=== PATIENT | male | born 1945 | race Caucasian/White ===

== ENCOUNTER → 2020-11-04 | Outpatient (CLI) | payer MEDICARE ==
[~2020-11-04] MED LIST: CATHETER FLUSH 10 ML SYR IV PRN; HOLD METFORMIN - RECEIVED CONTRAST 20 ML VIAL IV SCH; IOHEXOL 350 MG/ML 100 ML (OMNIPAQUE 350) VIAL IV ONE; NS 100 ML (IVPB) BAG IV ONE
--- NOTE | 2020-11-04 09:19 | Diagnostic Imaging Report ---
PROCEDURE: CT abdomen and pelvis with contrast. TECHNIQUE: Multiple contiguous axial images were obtained through the abdomen and pelvis after administration of intravenous contrast. Auto Exposure Controls were utilized during the CT exam to meet ALARA standards for radiation dose reduction. All CT scans use one or more of the following dose optimizing techniques: automated exposure control, MA and/or KvP adjustment based on patient size and exam type or iterative reconstruction. INDICATION: Abdominal aortic aneurysm. COMPARISON: None available. FINDINGS: LOWER THORAX: Lung bases are clear. Visualized heart is normal in size. Incidentally noted are small pericardiophrenic lymph nodes, which are not enlarged by CT size criteria. LIVER: Normal. No focal lesion or acute pathology. GALLBLADDER: Hyperdense material layers posteriorly in the distal body/fundus. No gallbladder wall thickening or pericholecystic fluid. BILE DUCTS: No biliary ductal dilatation. SPLEEN: Normal. PANCREAS: Normal. No pancreatic ductal dilatation. ADRENAL GLANDS: No nodules. KIDNEYS AND URETERS: The kidneys are symmetric in size and demonstrate normal enhancement. No hydronephrosis renal calculus on either side. Subcentimeter foci of low-attenuation in both kidneys are too small to characterize, but likely represent cysts. No suspicious renal mass. No abnormality in the visualized ureters. STOMACH AND BOWEL: Stomach and duodenum are normal. Small bowel and colon are normal in course and caliber, without evidence of wall thickening or obstruction. No unusual stool burden. APPENDIX: Not visualized. No pericecal inflammation. PELVIC ORGANS/BLADDER: Bladder is normal. Prostate gland is normal in size. PERITONEUM AND RETROPERITONEUM: No pneumoperitoneum. No abdominal free fluid or loculated collection. LYMPH NODES: No lymphadenopathy. VESSELS: There is fusiform dilatation of the infrarenal abdominal aorta at the level of the aortic bifurcation. This is difficult to accurately measure given its close proximity to the origin of the left common iliac artery, however, measures approximately 5.0 cm in greatest AP oblique diameter (image 129 series 5). There is moderate noncalcified atherosclerotic plaque noted at the level of the aortic bifurcation, with scattered calcified atherosclerotic plaque also noted in the abdominal aorta and iliac arteries. There is also aneurysmal dilatation of the common iliac arteries. The left common iliac artery measures up to approximately 1.9 cm in greatest AP diameter and the right common iliac artery measures up to approximately 3.5 cm in greatest AP diameter. The renal and mesenteric arteries appear patent on this study performed without angiographic protocol. Incidental note is made of a replaced right hepatic artery, which arises directly from the aorta. There is no evidence of venous thrombosis. ABDOMINAL WALL: There is a fat-containing paraumbilical hernia, with the ventral wall defect just below the level of the umbilicus measuring 2.4 cm in transverse diameter. There is no inflammatory change in the herniated fat to suggest strangulation. BONES: Mild degenerative changes involve the spine. No acute osseous abnormalities identified. There is a heterogeneous sclerotic lesion in the right anterior iliac bone near the acetabular roof (images 72-73 series 3), which measures up to 2 cm in greatest AP diameter. Smaller benign-appearing sclerotic focus is demonstrated in the posterior right iliac bone, likely a benign bone island (image 68 series 3). IMPRESSION: No acute abdominal or pelvic pathology. Infrarenal abdominal aortic aneurysm at the level of the aortic bifurcation, which measures up to approximately 5 cm in oblique AP diameter. 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 There is no evidence of rupture, retroperitoneal hemorrhage, or other acute abnormality related to these findings. Cholelithiasis, without evidence of acute cholecystitis. Incidental note is made of a heterogeneous sclerotic lesion in the right iliac bone. This is indeterminate and may represent a bone infarct. Comparison to more remote priors would be beneficial to assess for stability of this finding. If the patient has history of malignancy and there is concern for metastatic disease, nuclear medicine bone scan may be of benefit in further evaluation. Other chronic and incidental findings are detailed above. Dictated by: Dictated on workstation # [id number]
== END ==
LOC: RAD FS 07:54
PROVIDERS: ATTEND Family Medicine
DX: I71.4 Abdominal aortic aneurysm, without rupture (principal); I72.3 Aneurysm of iliac artery; K80.20 Calculus of gallbladder without cholecystitis without obstruction; M89.8X8 Other specified disorders of bone, other site
CPT/HCPCS: 74177

== ENCOUNTER → 2020-11-29 | Outpatient (CLI) | payer MEDICARE | LOC: CARD 08:51 | PROVIDERS: ATTEND Internal Medicine Cardiovascular Disease | DX: I11.9 Hypertensive heart disease without heart failure (principal); I34.0 Nonrheumatic mitral (valve) insufficiency | CPT/HCPCS: 93306 ==

== ENCOUNTER → 2021-01-13 | Outpatient (CLI) | payer MEDICARE ==
[~2021-01-13] MED LIST changes: +APIX5TAB PO; -CATHETER FLUSH 10 ML SYR IV PRN; +CLOP75TA28 PO; +DILT120C82 PO; +DILT120T3 PO; +FENO145T26 PO; +FLUT9.9S NS; +FURO40TA4 PO; -HOLD METFORMIN - RECEIVED CONTRAST 20 ML VIAL IV SCH; +HYDR12.56 PO; +INSU100I14 SQ; +INSU100I34 SQ; -IOHEXOL 350 MG/ML 100 ML (OMNIPAQUE 350) VIAL IV ONE; +IPRA3AMP31 IH; +MELO15TA39 PO; +METO50TA7 PO; +MONT10TA32 PO; -NS 100 ML (IVPB) BAG IV ONE; +OMEP20CA18 PO; +PREG100C55 PO; +ROSU40TA23 PO; +RT-ALBUINH IH
== END ==
LOC: LABNPT 06:41
PROVIDERS: ATTEND Internal Medicine Cardiovascular Disease
DX: Z01.818 Encounter for other preprocedural examination (principal); Z20.822 Contact with and (suspected) exposure to COVID-19
CPT/HCPCS: 87635

== ENCOUNTER 2021-01-15 12:00 | Day surgery (SDC) | payer MEDICARE ==
[2021-01-15] VITALS (16 sets, daily range): BP systolic 102–143; BP diastolic 59–107
[~2021-01-15] VITALS: Ht 188 cm; Wt 136.4 kg
--- NOTE | 2021-01-15 09:49 | Diagnostic Imaging Report ---
INDICATION: Atrial fibrillation and pre-heart catheterization. Time of exam: 9:47 AM No prior studies are available for comparison. The heart size is normal. The pulmonary vascularity is unremarkable. The lungs are clear. No infiltrate, effusion or pneumothorax is detected. IMPRESSION: No acute cardiopulmonary process is detected. Dictated by: Dictated on workstation # [id number]
[2021-01-15 09:56] LABS: HEMATOCRIT 43 % (40-54); MEAN CORPUSCULAR HEMOGLOBIN 29 pg (25-34); MEAN CORPUSCULAR HGB CONC 33 g/dL (32-36); MEAN CORPUSCULAR VOLUME 88 fL (80-99); MEAN PLATELET VOLUME 11.3 fL (9.0-12.2); PLATELET COUNT 209 10^3/uL (130-400); WHITE BLOOD COUNT 7.3 10^3/uL (4.3-11.0)
[2021-01-15 10:16] LABS: ALANINE AMINOTRANSFERASE 19 U/L (0-55); ALBUMIN 3.7 GM/DL (3.2-4.5); ALKALINE PHOSPHATASE 59 U/L (40-136); BILIRUBIN,TOTAL 0.4 MG/DL (0.1-1.0); BUN/CREATININE RATIO 20; CARBON DIOXIDE 30 MMOL/L (21-32); CHLORIDE 105 MMOL/L (98-107); CHOLESTEROL 124 MG/DL (< 200); CREATININE SERUM 1.14 MG/DL (0.60-1.30); GFR ESTIMATED > 60; GLUCOSE 195 MG/DL (70-105); HDL CHOLESTEROL 26 MG/DL (40-60); INR 1.1 (0.8-1.4); POTASSIUM 3.8 MMOL/L (3.6-5.0); PROTHROMBIN TIME PATIENT 14.2 SEC (12.2-14.7); SODIUM 142 MMOL/L (135-145); TOTAL PROTEIN 6.7 GM/DL (6.4-8.2); TRIGLYCERIDES 137 MG/DL (<150); VLDL CHOLESTEROL 27 MG/DL (5-40)
[~2021-01-15 12:00] MED LIST changes: +AMIODARONE INJECTION 450 MG in D5W IV SOLUTION (EXCEL) 250 ML IV SCH; +LIDOCAINE 2% VISCOUS 15 ML UDC ONE; +LIDOCAINE 2% VISCOUS 15 ML UDC PO ONE; +MIDAZOLAM 2 MG/2 ML (VERSED) VIAL ONE; +NS IV 1000 ML 1,000 ML IV SCH; +NS IV 1000 ML 1,000 ML ONE; +proPOfol 200 MG/20 ML (DIPRIVAN) VIAL IV ONE
[2021-01-15] MEDS ORDERED: AMIODARONE FOR BOLUS 150 MG in D5W 100 ML IVPB 100 ML IV NR (12:15)
--- NOTE | 2021-01-15 12:17 | Conscious Sedation/ASA ---
Conscious Sedation Pre-Proced Time 11:00 ASA Score 3 For ASA 3 and 4: Consider anesthesia and medical clearance. Also, for patients with a history of failed moderate sedation consider anesthesia. Airway Lungs Heart ASA score ASA 1: a normal healthy patient ASA 2: a patient with a mild systemic disease (mid diabetes, controlled hypertension, obesity x ASA 3: a patient with a severe systemic disease that limits activity (angina, COPD, prior Myocardial infarction) ASA 4: a patient with an incapacitating disease that is a constant threat to life (CHF, renal failure) ASA 5: a moribund patient not expected to survive 24 hrs. (ruptured aneurysm) ASA 6: a declared brain- patient whose organs are being harvested. For emergent operations, add the letter E after the classification Mallampati Classification Grade 3 Sedation Plan Analgesia, Amnesia, Plan communicated to team members, Discussed options with patient/fam, Discussed risks with patient/fam The patient is an appropriate candidate to undergo the planned procedure, sedation, and anesthesia. The patient immediately re-assessed prior to indication. TONIO LOPEZ MD January 15, 2021 12:16 pm
--- NOTE | 2021-01-15 12:17 | Cardioversion ---
Cardioversion PROCEDURE PHYSICIAN: Tonio Esparza DATE OF PROCEDURE: 01/15/21 DIRECT EXTERNAL ELECTRICAL CARDIOVERSION: Indications: Atrial Fibrillation with rapid ventricular rate Preoperative diagnoses: Atrial Fibrillation with rapid ventricular rate Postoperative diagnosis: Atrial fibrillation Anesthesia: By Anesthesia services Complications: None Specimen: None Contrast: 0 Flouroscopy: none Procedure Details: The patient was brought the central lab technician after informed consent was taken, all the risks and complications were explained including the risk of stroke. Electrical cardioversion was carried out with anesthesia support with propofol. 200 joules of synchronized shock was delivered twice without success in terminating atrial fibrillation. Decision was made to load the patient with amiodarone and attempt cardioversion again tomorrow Conclusions: Failed to attempt for cardioversion with 200 J TONIO ESPARZA MD January 15, 2021 12:17 pm
[2021-01-15] MEDS ORDERED: RT-ALBUTEROL/IPRATROPIUM 3 ML (DUONEB) VIAL IH PRN (12:30)
[2021-01-15] MEDS ORDERED: AMIODARONE FOR BOLUS 150 MG in D5W 100 ML IVPB 100 ML IV ONE (12:30)
[2021-01-15] MEDS ORDERED: RT-ALBUTEROL SULF 2.5 MG/3 ML PRE-MIX VIAL IH PRN (12:30)
--- NOTE | 2021-01-15 12:55 | Anesthesia-General Post-Op ---
MAC Patient Condition Mental Status/LOC: Same as Preop Cardiovascular: Satisfactory Nausea/Vomiting: Absent Respiratory: Satisfactory Pain: Controlled Complications: Absent Post Op Complications Complications None Follow Up Care/Instructions Patient Instructions None needed. Anesthesiology Discharge Order Discharge Order Patient is doing well, no complaints, stable vital signs, no apparent adverse anesthesia problems. No complications reported per nursing. SWETHA ROSSI CRNA January 15, 2021 12:55
[2021-01-15] MEDS ORDERED: PREGABALIN 100 MG (LYRICA) CAPSULE PO SCH ×2 (13:00→21:00)
[2021-01-15] MEDS ORDERED: NON-FORMULARY MEDICATION 1 EA EA (Insulin Aspart (Novolog Flexpen) 25 UNITS) SQ SCH (13:00)
[2021-01-15] MEDS ORDERED: AMIODARONE INJECTION 450 MG in D5W IV SOLUTION (EXCEL) 250 ML IV SCH (14:30)
[2021-01-15] MEDS ORDERED: APIXABAN 5 MG (ELIQUIS) TABLET PO NR (14:30)
[2021-01-15] MEDS ORDERED: NITROGLYCERIN 0.4 MG SL TABS BTL 25'S SL PRN (14:45)
[2021-01-15] MEDS ORDERED: RT-ALBUTEROL INHALER HFA (VENTOLIN HFA) 18 GM IH PRN (15:15)
[2021-01-15] MEDS ORDERED: inSUlin ASPART (NovoLOG) 1 UNIT/0.01 ML (CHARGE PER UNIT) SC SCH (18:00)
[2021-01-15] MEDS: FUROSEMIDE 40 MG (LASIX) TAB PO SCH (18:56)
[2021-01-15] MEDS ORDERED: AMIODARONE 200 MG (CORDARONE) TAB PO SCH (21:00)
[2021-01-15] MEDS ORDERED: BASAGLAR 100 UNIT/ML SQ SCH (21:00)
[2021-01-15] MEDS ORDERED: APIXABAN 5 MG (ELIQUIS) TABLET PO SCH (21:00)
[2021-01-15] MEDS ORDERED: MONTELUKAST 10 MG (SINGULAIR) TAB PO SCH (21:00)
[2021-01-15] MEDS ORDERED: ROSUVASTATIN 20 MG (CRESTOR) TABLET PO SCH (21:00)
[2021-01-16] VITALS (7 sets, daily range): BP systolic 98–123; BP diastolic 46–89
[2021-01-16] MEDS: FUROSEMIDE 40 MG (LASIX) TAB PO SCH (07:50)
--- NOTE | 2021-01-16 07:50 | Discharge Inst-Post CATH ---
Discharge Inst-CATH/EP Problems Reviewed?: Yes Post Cardiac Cath/EP D/C Inst Follow Up/Plan Appointment with Dr. Esparza's office in 2 weeks <b>CARDIAC CATH/EP PROCEDURE DISCHARGE INSTRUCTIONS</b> ACTIVITY * Go Home directly and rest. * Limit activity of the leg (or wrist if it was used) for 7 days including aerobics, swimming, jogging, bicycling, etc. * Restrict stair-climbing for 7 days if possible, if not, climb up with your non-cath leg, then bring together on the same step. * Avoid lifting, pushing, pulling or excessive movement of the affected extremity for 7 days. * Customary sexual activity may be resumed after 2 days-use caution not to use a position that strains or causes pain to the affected extremity. * No driving for 24 hours. * NO SMOKING. * Avoid straining for bowel movements for 7 days. * Gentle walking on level ground is allowed. * Returning to work will depend on the type of procedure and the results. Your doctor will discuss this with you. CALL YOUR DOCTOR FOR ANY OF THE FOLLOWING: *If bleeding from the puncture site occurs- Apply gentle pressure to site with clean cloth and call your doctor or EMS. * If a knot or lump forms under the skin, increases in size, or causes pain. * If bruising appears to be worsening or moving further down your leg instead of disappearing. * Temperature above 101 F. CARE OF YOUR GROIN INCISION; * Bruising or purple discoloration of the skin near the puncture site is common. * You may shower only, no bathtub bathing for 5 days. Be careful to avoid slipping as your leg may feel stiff. * If a closure device was used on your femoral artery, please see the attached guide regarding care of the device and your leg. * Leave dressing on FOR 24 hours. CARE OF YOUR WRIST INCISION; * Bruising or purple discoloration of the skin near the puncture site is common. * You may shower. * DO NOT submerge wrist. * Leave dressing on FOR 24 hours. TONIO ESPARZA MD January 16, 2021 07:50
--- NOTE | 2021-01-16 07:52 | Cardiology Progress Note ---
Subjective Date Seen by Provider: January 16, 2021 Time Seen by Provider: 07:50 Subjective/Events-last exam Patient is laying down in bed, feeling better, no further chest pain Has chest pain, shortness of breath and diaphoresis when he was started on amiodarone drip subsequently it was discontinued Review of Systems General: No Chills, No Night Sweats, No Fatigue, No Malaise, No Appetite, No Other HEENT: No Head Aches, No Visual Changes, No Eye Pain, No Ear Pain, No Dysphasia, No Sinus Congestion, No Post Nasal Drip, No Sore Throat, No Other Pulmonary: No Dyspnea, No Cough, No Pleuritic Chest Pain, No Other Cardiovascular: No: Chest Pain, Palpitations, Orthopnea, Paroxysmal Noc. Dyspnea, Edema, Lt Headedness, Other Objective-Cardiology Exam Last Set of Vital Signs Vital Signs 01/15/21 01/15/21 01/16/21 01/16/21 09:54 11:59 06:00 06:36 Temp 36.4 Pulse 77 Resp 24 B/P (MAP) 123/89 (100) Pulse Ox 95 O2 Delivery Room Air O2 Flow Rate 8.00 Capillary Refill : General: Alert, Oriented X3, Cooperative HEENT: Atraumatic, PERRLA Neck: Supple, No JVD, No Thyromegaly Lungs: Clear to Auscultation, Normal Air Movement Heart: Normal S1, Normal S2, No Murmurs, Other (Atrial fibrillation) Abdomen: Normal Bowel Sounds, Soft, No Tenderness, No Hepatosplenomegaly, No Masses Extremities: No Clubbing, No Cyanosis, No Edema, Normal Pulses, No Tenderness/Swelling Skin: No Rashes, No Breakdown, No Significant Lesion Neuro: Normal Gait, Normal Speech, Strength at 5/5 X4 Ext, Normal Tone, Sensation Intact Psych/Mental Status: Mental Status NL, Mood NL Results Lab Laboratory Tests 01/15/21 09:45 A/P-Cardiology Admission Diagnosis Persistent atrial fibrillation Palpitation Hypertension Hyperlipidemia Coronary artery disease Assessment/Plan Atrial fibrillation with controlled rate, underwent DAREN with attempt of cardioversion twice yesterday has failed, he was started on amiodarone drip and had a reaction, had chest pain and shortness of breath and diaphoresis subsequently it was discontinued, this morning he is feeling well. No other symptoms. I was planning to do cardioversion this morning but elected to cancel the procedure and refer him for EP evaluation as an outpatient Palpitation, better at this time Coronary artery disease, clinically stable, monitor as an outpatient Hypertension, monitor blood pressure restart home medication Hyperlipidemia. TONIO LOPEZ MD January 16, 2021 07:52
[2021-01-16] MEDS ORDERED: FENOFIBRATE 145 MG TAB PO SCH (08:00)
[2021-01-16] MEDS ORDERED: meTOproloL SUCCINATE 50 MG (TOPROL XL) TAB PO SCH (09:00)
[2021-01-16] MEDS ORDERED: NON-FORMULARY MEDICATION 1 EA EA (Hydrochlorothiazide 12.5 MG) PO SCH (09:00)
[2021-01-16] MEDS ORDERED: MELOXICAM 15 MG TABLET PO SCH (09:00)
[2021-01-16] MEDS ORDERED: FLUTICASONE NASAL SPRAY (FLONASE) 16 GM BTL NS PRN (09:00)
[2021-01-16] MEDS ORDERED: OMEPRAZOLE 20 MG (PriLOSEC) CAP NON-FORMULARY PO SCH (09:00)
[2021-01-16] MEDS ORDERED: dilTIAZem120 MG (CARDIZEM CD) CAP PO SCH (09:00)
[2021-01-16] MEDS ORDERED: NON-FORMULARY MEDICATION 1 EA EA (Rosuvastatin Calcium 40 MG) PO SCH (09:00)
[2021-01-16] MEDS ORDERED: NON-FORMULARY MEDICATION 1 EA EA (Meloxicam 15 MG) PO SCH (09:00)
[2021-01-16] MEDS ORDERED: CLOPIDOGREL 75 MG (PLAVIX) TABLET PO SCH (09:00)
== END 2021-01-16 08:13 | disposition home or self-care (01) ==
LOC: ICU 13:54 → CATH 01-16 08:13
PROVIDERS: ATTEND Internal Medicine Cardiovascular Disease
DX: I48.20 Chronic atrial fibrillation, unspecified (principal); I11.9 Hypertensive heart disease without heart failure; I71.4 Abdominal aortic aneurysm, without rupture; I25.10 Atherosclerotic heart disease of native coronary artery without angina pectoris; E78.2 Mixed hyperlipidemia; G47.33 Obstructive sleep apnea (adult) (pediatric); E78.1 Pure hyperglyceridemia; I34.0 Nonrheumatic mitral (valve) insufficiency; I49.3 Ventricular premature depolarization; E11.9 Type 2 diabetes mellitus without complications; E66.9 Obesity, unspecified; Z88.8 Allergy status to other drugs, medicaments and biological substances; Z87.891 Personal history of nicotine dependence; Z86.73 Personal history of transient ischemic attack (TIA), and cerebral infarction without residual deficits; Z79.01 Long term (current) use of anticoagulants; Z68.38 Body mass index [BMI] 38.0-38.9, adult; Z79.899 Other long term (current) drug therapy; Z79.02 Long term (current) use of antithrombotics/antiplatelets; Z79.891 Long term (current) use of opiate analgesic; Z79.4 Long term (current) use of insulin; Z98.890 Other specified postprocedural states
CPT/HCPCS: 36415; 71045; 80053; 80061; 85027; 85610; 85730; 87081; 92960; 93005; 93312

== ENCOUNTER 2021-06-05 12:43 | Inpatient (IN) | payer MEDICARE ==
[~2021-06-05] VITALS: Ht 188 cm; Wt 138.3 kg
[~2021-06-05 12:43] MED LIST changes: -AMIODARONE INJECTION 450 MG in D5W IV SOLUTION (EXCEL) 250 ML IV SCH; -LIDOCAINE 2% VISCOUS 15 ML UDC ONE; -LIDOCAINE 2% VISCOUS 15 ML UDC PO ONE; -MIDAZOLAM 2 MG/2 ML (VERSED) VIAL ONE; -NS IV 1000 ML 1,000 ML IV SCH; -NS IV 1000 ML 1,000 ML ONE; -proPOfol 200 MG/20 ML (DIPRIVAN) VIAL IV ONE
--- OUTSIDE RECORDS SUMMARY | 2021-06-05 12:50 | XMS REPORT | Clinical Summary ---
Author Author [facility] Organization [facility] Address Unknown Phone Unavailable Care Team Providers Care Linter Drier Operator Name Role Phone Self, Sandip CARLISLE PCP Source Comments Some departments are not documenting in the electronic medical record. If you d o not see the information that you expected, contact Release of Information in located within [facility] [employer] Information Management department at [phone] for further assistan ce in locating additional records.[facility] Allergies Comments Active Allergy Reactions Severity Noted Date Amiodarone CHEST Medium 01/30/2021 TIGHTNESS, SHORTNESS OF BREATH, SWEATING Rosiglitazone SHORTNESS OF Medium 01/30/2021 BREATH Losartan HIVES Medium 01/30/2021 Glipizide RASH Medium 01/30/2021 Umeclidinium SHORTNESS OF Medium 01/30/2021 BREATH Atorvastatin HIVES Medium 01/30/2021 Benazepril MUSCLE PAIN Medium 01/30/2021 Lovastatin MUSCLE PAIN Medium 01/30/2021 Metformin RASH Medium 01/30/2021 Simvastatin MUSCLE PAIN Medium 01/30/2021 Medications End Date Status Medication Sig Dispensed Refills Start Date Active aspirin EC 81 mg tablet Take 81 mg by 0 mouth daily. Take with food. Active clopiDOGrel (PLAVIX) 75 Take 75 mg by 0 mg tablet mouth daily. Active fenofibrate Take 145 mg 0 nanocrystallized (TRICOR) by mouth 145 mg tablet daily. Take with food. Active hydroCHLOROthiazide Take 12.5 mg 0 (HYDRODIURIL) 12.5 mg by mouth tablet every morning. Active furosemide (LASIX) 40 mg Take 40 mg by 0 tablet mouth every morning. Active pregabalin (LYRICA) 100 Take 100 mg 0 mg capsule by mouth three times daily. Active meloxicam (MOBIC) 15 mg Take 15 mg by 0 tablet mouth daily. Active insulin aspart U-100 Inject 25 0 (NOVOLOG FLEXPEN U-100 Units under INSULIN) 100 unit/mL (3 the skin mL) injection PEN three times daily with meals. Active omeprazole DR (PRILOSEC) Take 20 mg by 0 20 mg capsule mouth daily before breakfast. Active rosuvastatin (CRESTOR) 40 Take 40 mg by 0 mg tablet mouth daily. Active apixaban (ELIQUIS) 5 mg Take 5 mg by 0 tablet mouth twice daily. Active albuterol (ACCUNEB) 0.63 Inhale 0.63 0 mg/3 mL nebulizer mg solution solution by nebulizer as directed every 4 hours as needed for Wheezing. Active fluticasone propionate Apply 2 0 (FLONASE) 50 sprays to mcg/actuation nasal each nostril spray, suspension as directed daily. Shake bottle gently before using. Active metoprolol XL (TOPROL XL) Take 50 mg by 0 50 mg extended release mouth daily. tablet Active montelukast (SINGULAIR) Take 10 mg by 0 10 mg tablet mouth at bedtime daily. Active dilTIAZem CD (CARDIZEM Take one 180 capsule 3 CD) 120 mg capsule capsule by 1 mouth twice daily. Active insulin Inject 60 0 glargine,hum.rec.anlog Units under (BASAGLAR KWIKPEN U-100 the skin INSULIN SC) twice daily. Active MULTAQ 400 mg tablet TAKE 1 TABLET 60 tablet 11 BY MOUTH 1 TWICE DAILY Active Problems Problem Noted Date Atrial fibrillation 01/30/2021 Overview: Formatting of this note might be differ ent from the original. 11/29/2020 - ECHO: ([facility]) LV cavity is normal. Wall thickness is mildly increased. Th ere is concentric hypertrophy. Systolic function is normal. EF = 50%. There were no regional wall motion abnormalities identified. Features are consistent with a pseudonormal LV filling pattern, with concomitant abnor mal relaxation and increased filling pressure (grade 2 diastolic dysfunction ). RV cavity is mildly increased. Wall thickness is normal. LA is mildly to moderately dilated. 4.5 cm. Mild to moderate MCR. PASP is 45 - 50m mHg. 01/15/2021 - DAREN + DCCV: ([facility]) Failed to attempt for DCCV with 200 Randy les. Palpitations 01/30/2021 HTN (hypertension) 01/30/2021 HLD (hyperlipidemia) 01/30/2021 CAD (coronary artery disease) 01/30/2021 DM (diabetes mellitus) 01/30/2021 Myopathy 01/30/2021 COPD (chronic obstructive pulmonary disease) 021 ADHD 01/30/2021 Seasonal allergic rhinitis 01/30/2021 TIA (transient ischemic attack) 01/30/2021 H/O: CVA (cerebrovascular accident) 01/30/2021 Panlobular emphysema 01/30/2021 OA (osteoarthritis) 01/30/2021 Basal cell carcinoma 01/30/2021 Diabetic neuropathy 01/30/2021 IVONNE (obstructive sleep apnea) 01/30/2021 Overview: Formatting of this note might be differ ent from the original. 08/18/2020 - Sleep Study: ([facility]) Moderate IVONNE Encounters Care Team Description Date Type Specialty Eddie Cortes MD Medication Refill 05/05/2021 Refill Cardiology Yesica Jorge RN Other (Call to patient's secondary conta ct # ) 03/25/2021 Telephone Cardiology Yesica Jorge RN Other (Prepare for upcoming telehealth v isit ) 03/25/2021 Telephone Cardiology from Last 3 Months Immunizations Name Administration Dates Next Due Surgical History Surgery Date Site/Laterality Comments ELECTROCARDIOGRAM CARDIOVERSION DOPPLER ECHOCARDIOGRAPHY CARDIAC CATHERIZATION Medical History Medical History Date Comments Atrial fibrillation (HCC) 01/30/2021 Palpitations 01/30/2021 HTN (hypertension) 01/30/2021 HLD (hyperlipidemia) 01/30/2021 CAD (coronary artery disease) 01/30/2021 DM (diabetes mellitus) (HCC) 01/30/2021 Myopathy 01/30/2021 COPD (chronic obstructive pulmonary 01/30/2021 disease) (HCC) Adhd 01/30/2021 Seasonal allergic rhinitis 01/30/2021 TIA (transient ischemic attack) 01/30/2021 H/O: CVA (cerebrovascular accident) 01/30/2021 Panlobular emphysema (HCC) 01/30/2021 OA (osteoarthritis) 01/30/2021 Basal cell carcinoma 01/30/2021 Diabetic neuropathy (HCC) 01/30/2021 IVONNE (obstructive sleep apnea) 01/30/2021 Social History Date Tobacco Use Types Packs/Day Years Used Former Smoker Cigarettes 3 2 Smokeless Tobacco: Chew Current User Comments Alcohol Use Standard Drinks/Week Never 0 (1 standard drink = 0.6 o z pure alcohol) Alcohol Habits Answer Date Recorded How often do you have a drink containing alcohol? Never 01/30/2021 How many drinks containing alcohol do you have on No t asked a typical day when you are drinking? How often do you have six or more drinks on one Not asked occasion? Comment: Not asked Sex Assigned at Date Recorded Not on file Last Filed Vital Signs Reading Time Taken Comments Vital Sign 112/67 02/05/2021 10:56 AM CDT Blood Pressure 59 02/05/2021 10:56 AM CDT Pulse - - Temperature - - Respiratory Rate 95% 02/05/2021 10:56 AM CDT Oxygen Saturation - - Inhaled Oxygen Concentration 136.1 kg (300 lb) 02/05/2021 9:45 AM CDT Weight 188 cm (6' 2") 02/05/2021 9:45 AM CDT Height 38.52 02/05/2021 9:45 AM CDT Body Mass Index Plan of Treatment Health Maintenance Due Date Last Done Comments MEDICARE ANNUAL WELLNESS 1945 VISIT PNEUMONIA (PPSV23) 1952 VACCINE (1 of 2 - PPSV23) DILATED EYE EXAM 1964 DTAP/TDAP VACCINES (1 - 1964 Tdap) FOOT EXAM 1964 HBA1C 1964 HEPATITIS C SCREENING 1964 MICROALBUMIN 1964 PHYSICAL (COMPREHENSIVE) 1964 EXAM COLORECTAL CANCER 1996 SCREENING SHINGLES RECOMBINANT 1996 VACCINE (1 of 2) ABDOMINAL AORTIC ANEURYSM 2011 SCREENING INFLUENZA VACCINE 04/06/2021 07/27/2019 COVID-19 VACCINE Completed 11/26/2020, 10/29/2020 Results Not on filefrom Last 3 Months Insurance Type Payer Benefit Subscriber ID Effective Phone Address Plan / Dates Group Medicare AETNA MEDICARE AETNA [id number] 2019-P MEDICARE resent PPO [id number] Advance Directives Patient Electric[employer] Explanation Type Date Recorded Advance Directive/DPOA
--- OUTSIDE RECORDS SUMMARY | 2021-06-05 12:50 | XMS REPORT | Encounter Summary ---
Author Author [facility] Organization [facility] Address Unknown Phone Unavailable Care Team Providers Care Clinical Application Consultant Name Role Phone Self, Sandip CARLISLE PCP Reason for Visit * Reason Comments Medication Refill Encounter Details Care Team Description Date Type Department Eddie Cortes MD [address] [place] [address] [phone] Medication Refill 05/05/2021 Refill Cardiology: [facility] [address] [place] [address] Social History Date Tobacco Use Types Packs/Day [...] Assigned at Date Recorded Not on file documented as of this encounter Ordered Prescriptions Start Date End Date Prescription Sig Dispensed Refills 05/05/2021 MULTAQ 400 mg tablet TAKE 1 TABLET 60 tablet 11 BY MOUTH TWICE DAILY documented in this encounter Plan of Treatment Not on filedocumented as of this encounter Visit Diagnoses Not on filedocumented in this encounter Discontinued Medications Start Date End Date Medication Sig Discontinue Reason 01/30/2021 05/05/2021 dronedarone (MULTAQ) 400 Take one mg tablet tablet by mouth twice daily with meals. documented as of this encounter Additional Health Concerns Assessment Noted Time A fall risk assessment has been completed for the pat ient 02/05/2021 9:45 AM CDT PHQ-2 Depression Total Score: 0 01/30/2021 2:16 PM CDT documented as of this encounter
--- OUTSIDE RECORDS SUMMARY | 2021-06-05 12:50 | XMS REPORT | Clinical Summary ---
Author Author [facility] Organization [facility] Address Unknown Phone Unavailable Care Team Providers Care Small Arms Repairer Name Role Phone Self, Sandip CARLISLE PCP Allergies Comments Active Allergy Reactions Severity Noted Date Gregorio Inhibitors Edema High 02/18/2016 Rosiglitazone 02/18/2016 Losartan 02/18/2016 Glipizide 02/18/2016 Atorvastatin 02/18/2016 Lisinopril 02/18/2016 Benazepril 02/18/2016 Lovastatin 02/18/2016 Metformin 02/18/2016 Simvastatin 02/18/2016 Shxiwjy-Ylk-Yfo Reductase Throat edema High 02/04 Inhibitors Fenofibrate Micronized 02/18/2016 Medications End Date Status Medication Sig Dispensed Refills Start Date Active omeprazole (PRILOSEC) 20 Take 20 mg by 0 MG capsule mouth daily. Active ezetimibe (ZETIA) 10 mg Take 10 mg by 0 tablet mouth daily. Active cetirizine (ZYRTEC) 10 MG Take 10 mg by 0 tablet mouth daily. Active fenofibrate (TRICOR) 145 Take 145 mg 0 MG tablet by mouth daily. Active HYDROcodone-acetaminophen Take 1 tablet 0 (NORCO) 7.5-325 mg per by mouth tablet every 6 (six) hours as needed for pain. Active albuterol Inhale 2 0 (PROAIR/PROVENTIL/VENTOLI puffs every 6 N) 90 mcg/actuation HFA (six) hours inhaler as needed for wheezing. Active tiotropium (SPIRIVA) [address] Place 2.5 mcg 0 mcg inhalation capsule into inhaler and inhale daily. Active fluticasone (FLONASE) 50 Use 1 spray 0 mcg/actuation nasal spray in each nostril as needed for rhinitis. Active INSULIN DETEMIR (LEVEMIR Inject 20 0 FLEXPEN SUBQ) Units under the skin 2 (two) times a day. Active liraglutide (VICTOZA) 0.6 Inject 1.8 mg 0 mg/0.1 mL (18 mg/3 mL) under the PnIj skin daily. Active INSULIN ASPART (NOVOLOG Inject 15 0 SUBQ) Units under the skin 3 (three) times a day before meals. Active aspirin 325 MG tablet Take 1 tablet 30 tablet 0 (325 mg 6 total) by mouth daily. Active Problems Patient Care Coordination Note 70 YO make with the PMH of CAD, COPD, ID DM-2, tobacco abuse presented to the ER through a life flight because of the sudden onset of the Right arm weakness and left facial droop with difficulty speaking. He had similar symptom 2 days ago and was hospitalized in OSH where he was DC'ed after keeping on a heparin drip. In the ER a CTA of head and neck was done that showed no significant lesions. His symptoms had resolved within 2 hours of reaching the ER. Problem Noted Date Tobacco abuse 02/19/2016 COPD (chronic obstructive pulmonary disease) 016 Last Assessment & Plan: Formatting of this note might be differ ent from the original. Stabe, no signs of exacerbation Will continue on Spiriva Albuterol PRN If needed Chronic systolic congestive heart failure 02/18/2016 Last Assessment & Plan: Formatting of this note might be differ ent from the original. No signs of decompensation Has been on Lasix in the Past Will assess the EF on Echo CAD (coronary artery disease) 02/18/2016 Last Assessment & Plan: Formatting of this note might be differ ent from the original. Will continue on aspirin Start on Metoprolol 12.5 mg BID Patient is allergic to GREGORIO TIA (transient ischemic attack) 02/18/2016 Last Assessment & Plan: Formatting of this note might be differ ent from the original. Currently symptom free Will given him Aspirin 324 mg once Start on aspirin 81 mg PO from tomorrow AM Can not get Statin because of allergic reaction in the past Will get Lipid panel, TSH and start on Zetia 10 mg and Fenofibrate 160 mg Neuro consult, likely a MRI head And e cho tomorrow IDDM (insulin dependent diabetes mellitus) 6 Overview: Formatting of this note might be differ ent from the original. IMO Update December 2019 L ast Assessment & Plan: Formatting of this note might be differ ent from the original. Will continue on home Novolog 15 units BID Detemir 20 units BID SSI level 4. Accuchecks ACHS Family History Medical History Relation Name Comments Cancer Brother Cancer Sister Relation Name Status Comments Brother Alive Brother Alive Brother Father COPD and CHF Mother via SUICIDE Sister Sister Alive Sister Alive Sister Alive Social History Date Tobacco Use Types Packs/Day Years Used Current Every Day Smoker Cigarettes 0.5 60 Tobacco Cessation: Ready to Quit: Yes Comments: 5 to 10 cigs a day since 11 years old wit recent cut down to 5-10 cigs two weeks ago Comments Alcohol Use Standard Drinks/Week No 0 (1 standard drink = 0.6 o z pure alcohol) Sex Assigned at Date Recorded Not on file Last Filed Vital Signs Reading Time Taken Comments Vital Sign 152/88 02/20/2016 3:23 PM CDT Blood Pressure 84 02/20/2016 3:23 PM CDT Pulse 36.7 C (98 F) 02/20/2016 3:23 PM CDT Temperature 19 02/20/2016 3:23 PM CDT Respiratory Rate 93% 02/20/2016 3:23 PM CDT Oxygen Saturation - - Inhaled Oxygen Concentration 113.9 kg (251 lb) 02/18/2016 2:22 PM CDT Weight 182.9 cm (6') 02/18/2016 2:22 PM CDT Height 34.04 02/18/2016 2:22 PM CDT Body Mass Index Plan of Treatment Not on file Results Not on filefrom Last 3 Months Insurance Type Payer Benefit Subscriber ID Effective Phone Address Plan / Dates Group Medicare MEDICARE MEDICARE [id number] 1992- [place] PART A B [place], [place] [address] 1 Marcellus Ramirez Personal/F Self 1945 [address] amily (Home) [place], [place] [address] Advance Directives For more information, please contact: [phone] Patient Icu Tech Explanation Type Date Recorded Advance Directives and Living Will Power of Statistical Methods Teacher Date Inactivated Comments Code Status Date Activated 02/20/2016 5:51 PM Full Code 02/18/2016 4:08 PM
--- NOTE | 2021-06-05 12:57 | ED Abdominal Pain ---
General Stated Complaint: BOWEL CONSTIPATION Source of Information: Patient Exam Limitations: No Limitations History of Present Illness Date Seen by Provider: Jun 05, 2021 Time Seen by Provider: 12:48 Initial Comments 76yoM with PMH of CAD, pAFIB on anticoagulation, HTN, HLD, DM, COPD, and AAA s/p repair coming in due to feeling bloated. Had not had a BM in about 4 days so was taking a large amount of stool softeners. Did had a watery stool yesterday but did not feel better after. Took himself off lasix 1 week ago because of cramping in his legs, and started drinking a lot of pedialyte, carbonated beverages, and miralax. Started having increased swelling in his extremities shortly after. Took a dose of lasix this morning and has urinated a lot thus far. Now is feeling more SOB on top of his normal amount with his lung disease. Normally can sleep with one pillow and now can't lay flat. Was 379 pounds 4 days ago and is 407 today. Allergies and Home Medications Allergies Coded Allergies: lisinopril (Verified Allergy, Mild, 01/15/21) MUSCLE ACHES losartan (Verified Allergy, Mild, Rash, 01/15/21) lovastatin (Verified Allergy, Mild, 01/15/21) MUSCLE ACHES rosiglitazone (Verified Allergy, Mild, Hives, 01/15/21) umeclidinium (Verified Allergy, Mild, Rash, 01/15/21) Patient Home Medication List Home Medication List Reviewed: Yes Albuterol Sulfate (Proair Hfa) 1 Puff Puff, 2 PUFF IH Q4H PRN for SHORTNESS OF BREATH, (Reported) Entered as Reported by: DAVID SADLER on 01/15/21 1043 Apixaban (Eliquis) 5 Mg Tablet, 5 MG PO BID, (Reported) Entered as Reported by: DAVID SADLER on 01/15/21 1043 Clopidogrel Bisulfate (Clopidogrel) 75 Mg Tablet, 75 MG PO DAILY, (Reported) Entered as Reported by: DAVID SADLER on 01/15/21 1043 Diltiazem HCl (Cardizem Cd) 120 Mg Cap.er.24h, 120 MG PO DAILY, (Reported) Entered as Reported by: DAVID SADLER on 01/15/21 1043 Fenofibrate Nanocrystallized (Fenofibrate) 145 Mg Tablet, 145 MG PO DAILY, (Reported) Entered as Reported by: DAVID SADLER on 01/15/211042 Fluticasone Propionate (Flonase Allergy Relief) 9.9 Ml Combs.susp, 2 SPRAY NS DAILY PRN for ALLERGIES, (Reported) Entered as Reported by: DAVID SADLER on 01/15/211042 Furosemide (Furosemide) 40 Mg Tablet, 40 MG PO BID, (Reported) Entered as Reported by: DAVID SADLER on 01/15/211042 Hydrochlorothiazide (Hydrochlorothiazide) 12.5 Mg Tablet, 12.5 MG PO DAILY, (Reported) Entered as Reported by: DAVID SADLER on 01/15/211042 Insulin Aspart (Novolog Flexpen) 300 Units/3 Ml Solution, 25 UNITS SQ TIDWM, (Reported) Entered as Reported by: DAVID SADLER on 01/15/211042 Insulin Glargine,Hum.rec.anlog (Basaglar Kwikpen U-100) 100 Unit/1 Ml Insuln.pen, 60 UNIT SQ BID, (Reported) Entered as Reported by: DAVID SADLER on 01/15/211042 Ipratropium/Albuterol Sulfate (Iprat-Albut 0.5-3(2.5) mg/3 ml) 3 Ml Ampul.neb, 3 ML IH Q6H PRN for SHORTNESS OF BREATH, (Reported) Entered as Reported by: DAVID SADLER on 01/15/211042 Meloxicam (Meloxicam) 15 Mg Tablet, 15 MG PO DAILY, (Reported) Entered as Reported by: DAVID SADLER on 01/15/211042 Metoprolol Succinate (Metoprolol Succinate) 50 Mg Tab.er.24h, 50 MG PO DAILY, (Reported) Entered as Reported by: DAVID SADLER on 01/15/211042 Montelukast Sodium (Montelukast Sodium) 10 Mg Tablet, 10 MG PO HS, (Reported) Entered as Reported by: DAVID SADLER on 01/15/211042 Omeprazole (Omeprazole) 20 Mg Capsule.dr, 20 MG PO DAILY, (Reported) Entered as Reported by: DAVID SADLER on 5/12/21 1043 Pregabalin (Pregabalin) 100 Mg Capsule, 100 MG PO TID, (Reported) Entered as Reported by: DAVID SADLER on 01/15/21 1043 Rosuvastatin Calcium (Rosuvastatin Calcium) 40 Mg Tablet, 40 MG PO DAILY, (Reported) Entered as Reported by: DAVID SADLER on 01/15/21 1043 Review of Systems Review of Systems Constitutional: No chills, No fever EENTM: No Blurred Vision Respiratory: Denies Cough; Shortness of Air Cardiovascular: Denies Chest Pain, Denies Palpitations Gastrointestinal: Constipated; Denies Diarrhea, Denies Nausea, Denies Vomiting Genitourinary: No Symptoms Reported Musculoskeletal: No back pain Skin: No rash Psychiatric/Neurological: No Symptoms Reported Endocrine: No Symptoms Reported Hematologic/Lymphatic: No Symptoms Reported All Other Systems Reviewed Negative Unless Noted: Yes Past Uqujxvg-Xkyirw-Dpcojr Hx Past Medical History Appendectomy Respiratory: Yes Emphysema Cardiac: Yes Atrial Fibrillation, Coronary Artery Disease, High Cholesterol, Hypertension Neurological: Yes TIA Genitourinary: No Gastrointestinal: Yes Gastroesophageal Reflux Cancer: Yes Skin Did You Recieve Any Treatments: Yes What Type of Treatment Did You: Surgical Intervention Blood Disorders: No Physical Exam Vital Signs Vital Signs - First Documented 06/05/21 12:48 Temp 36.0 Pulse 82 Resp 26 B/P (MAP) 157/80 (105) Pulse Ox 96 O2 Delivery Room Air Capillary Refill : Height/Weight/BMI Height: '" Weight: lbs. oz. kg; 38.59 BMI Method: General Appearance: WD/WN, no apparent distress HEENT: PERRL/EOMI, normal ENT inspection, pharynx normal Neck: non-tender, full range of motion, supple, normal inspection Respiratory: chest non-tender, lungs clear, normal breath sounds, no respiratory distress, no accessory muscle use Cardiovascular: regular rate, rhythm, no murmur, other (3+ edema) Gastrointestinal: normal bowel sounds, soft; No distended, No guarding, No rebound; tenderness Extremities: normal range of motion, non-tender, normal inspection, no pedal edema, no calf tenderness, normal capillary refill Back: normal inspection, no CVA tenderness Neurologic/Psychiatric: no motor/sensory deficits, alert, normal mood/affect Skin: normal color, warm/dry Lymphatic: no adenopathy Progress/Results/Core Measures Results/Orders Lab Results Laboratory Tests Test 06/05/21 13:30 Range/Units White Blood Count 7.8 4.3-11.0 10^3/uL Red Blood Count 4.81 4.30-5.52 10^6/uL Hemoglobin 11.1 L 13.3-17.7 g/dL Hematocrit 36 L 40-54 % Mean Corpuscular Volume 76 L 80-99 fL Mean Corpuscular Hemoglobin 23 L 25-34 pg Mean Corpuscular Hemoglobin Concent 31 L 32-36 g/dL Red Cell Distribution Width 16.3 H 10.0-14.5 % Platelet Count 324 130-400 10^3/uL Mean Platelet Volume 11.2 9.0-12.2 fL Immature Granulocyte % (Auto) 1 % Neutrophils (%) (Auto) 59 42-75 % Lymphocytes (%) (Auto) 26 12-44 % Monocytes (%) (Auto) 9 0-12 % Eosinophils (%) (Auto) 3 0-10 % Basophils (%) (Auto) 1 0-10 % Neutrophils # (Auto) 4.6 1.8-7.8 X 10^3 Lymphocytes # (Auto) 2.1 1.0-4.0 X 10^3 Monocytes # (Auto) 0.7 0.0-1.0 X 10^3 Eosinophils # (Auto) 0.3 0.0-0.3 10^3/uL Basophils # (Auto) 0.1 0.0-0.1 10^3/uL Immature Granulocyte # (Auto) 0.1 0.0-0.1 10^3/uL Prothrombin Time 13.6 12.2-14.7 SEC INR Comment 1.0 0.8-1.4 Activated Partial Thromboplast Time 28 24-35 SEC Sodium Level 139 135-145 MMOL/L Potassium Level 4.0 3.6-5.0 MMOL/L Chloride Level 99 98-107 MMOL/L Carbon Dioxide Level 25 21-32 MMOL/L Anion Gap 15 H 5-14 MMOL/L Blood Urea Nitrogen 18 7-18 MG/DL Creatinine 1.20 0.60-1.30 MG/DL Estimat Glomerular Filtration Rate 59 BUN/Creatinine Ratio 15 Glucose Level 364 H 70-105 MG/DL Calcium Level 9.2 8.5-10.1 MG/DL Corrected Calcium 9.0 8.5-10.1 MG/DL Total Bilirubin 0.3 0.1-1.0 MG/DL Aspartate Amino Transf (AST/SGOT) 27 5-34 U/L Alanine Aminotransferase (ALT/SGPT) 20 0-55 U/L Alkaline Phosphatase 82 40-136 U/L Troponin I < 0.30 <0.30 NG/ML Pro-B-Type Natriuretic Peptide 44.9 <75.0 PG/ML Total Protein 7.0 6.4-8.2 GM/DL Albumin 4.2 3.2-4.5 GM/DL Lipase 35 8-78 U/L My Orders Orders - LEAH VILLEGAS MD Ct Abdomen/Pelvis W (06/05/21 13:06) Cbc With Automated Diff (06/05/21 13:06) Comprehensive Metabolic Panel (06/05/21 13:06) Lipase (06/05/21 13:06) Protime With Inr (06/05/21 13:06) Partial Thromboplastin Time (06/05/21 13:06) Probnp Fs (06/05/21 13:06) Troponin I Fs (06/05/21 13:06) Ekg Tracing (06/05/21 13:06) Chest Pa/Lat (2 View) (06/05/21 13:06) Iohexol Injection (Omnipaque 350 Mg/Ml 1 (06/05/21 15:00) Received Contrast (Hold Metformin- Contr (06/05/21 15:00) Sodium Chloride Flush (Catheter Flush Sy (06/05/21 15:00) Ns (Ivpb) (Sodium Chloride 0.9% Ivpb Bag (06/05/21 15:00) Furosemide Injection (Lasix Injection) (06/05/21 15:15) Potassium Chloride (Tablet) (K Dur Table (06/05/21 15:45) Medications Given in ED Current Medications Medications Dose Ordered Sig/Justin Route Start Time Stop Time Status Last Admin Dose Admin Furosemide 40 mg ONCE ONCE IVP 06/05/21 15:15 06/05/21 15:16 DC 06/05/21 15:14 40 MG Iohexol 100 ml ONCE ONCE IV 06/05/21 15:00 06/05/21 15:01 DC 06/05/21 14:59 100 ML Potassium Chloride 40 meq ONCE ONCE PO 06/05/21 15:45 06/05/21 15:46 DC 06/05/21 16:05 40 MEQ Sodium Chloride 10 ml NEEDED PRN IV 06/05/21 15:00 06/05/21 15:00 10 ML Sodium Chloride 100 ml ONCE ONCE IV 06/05/21 15:00 06/05/21 15:01 DC 06/05/21 15:00 80 ML Vital Signs/I&O 06/05/21 12:48 Temp 36.0 Pulse 82 Resp 26 B/P (MAP) 157/80 (105) Pulse Ox 96 O2 Delivery Room Air Progress Progress Note : Progress Note 76yoM with above history coming in mainly for feeling bloated. ABCs intact and VSS on presentation. On physical exam he looks floridly volume overloaded with edema all the way of his abdomen. Additionally he has gained nearly 30 pounds in roughly 4 days. He did just take Lasix oral prior to arrival which she has not had in over a week, and he has urinated 7 times within the past several hours. Differential for him includes volume overload from CHF versus kidney dysfunction versus less likely small bowel obstruction versus ileus versus some other etiology. Basic labs including cardiac biomarkers and LFTs ordered. CT ordered to further assess and rule out bowel obstruction. Labs significant for potassium of 4, proBNP of just under 50, creatinine 1.2, negative troponin. CT abdomen and pelvis without any acute abnormalities including no bowel obstruction. He does appear to have an endoleak that is poorly specified on the CT. I discussed this with the patient, and he says he has not followed up with his surgeon and forgot. I told him he absolutely needs to follow-up in the very near future. He was agreeable to this. In regards to the patient being minimum 30 pounds volume overloaded, he did receive IV Lasix with good response. He also received p.o. potassium. I called and discussed the case with Dr. Jean-Baptiste who will admit the patient to her service under observation status for further evaluation and management. I consulted the food assembler and talked the case over with him as well. Initial ECG Impression Date: Jun 05, 2021 Initial ECG Impression Time: 13:24 Initial ECG Rate: 78 Initial ECG Rhythm: Normal Sinus Comment Narrow QRS, normal axis, significant baseline wandering but accounting for that no significant ST elevation or depressions, no T wave abnormalities Diagnostic Imaging Diagonstic Imaging: Xray Plain Films/CT/US/NM/MRI: chest Comments [facility] [place], [place] NAME: INGRID GREER [facility] REC#: [id number] PT STATUS: REG ER : 1945 PHYSICIAN: LEAH VILLEGAS MD ADMIT DATE: 06/05/21/ER FS Draft Date of Exam:06/05/21 CHEST PA/LAT (2 VIEW) INDICATION: Short of breath, cough. EXAMINATION: Two-view chest, 06/05/2021. FINDINGS: Two views of the chest. The heart and pulmonary vasculature appear normal. Lungs and pleural spaces are clear. No pneumothorax or effusions. No acute osseous abnormality. IMPRESSION: 1. No acute process. Dictated on workstation # [id number] Dict: 06/05/21 1326 Trans: 06/05/21 1328 [id number] Interpreted by: MILLICENT ZAMORANO MD Electronically signed by: [facility] [place], [place] NAME: INGRID GREER [facility] REC#: [id number] PT STATUS: REG ER : 1945 PHYSICIAN: LEAH VILLEGAS MD ADMIT DATE: 06/05/21/ER FS Draft Date of Exam:06/05/21 CT ABDOMEN/PELVIS W EXAMINATION: CT abdomen and pelvis with intravenous contrast. TECHNIQUE: Multiple contiguous axial images were obtained through the abdomen and pelvis after the uneventful administration of intravenous contrast. All CT scans use one or more of the following dose optimizing techniques: Automated exposure control, MA and/or KvP adjustment based on patient size and exam type or iterative reconstruction. HISTORY: Prior AAA repair, constipation. COMPARISON: 11/04/2020. FINDINGS: Limited views of the lower thorax are unremarkable. The liver is normal without focal lesion. There is no biliary ductal dilation. Stones are present in the gallbladder. Pancreas is normal. Spleen is normal. Adrenal glands are normal. The kidneys are normal. There is no hydronephrosis. Urinary bladder is normal. Visualized bowel is normal in caliber without obstruction or inflammation. There is a fat-containing umbilical hernia. No free fluid or air. No abdominal or pelvic lymphadenopathy. There are postsurgical changes of endovascular repair of the abdominal aorta, and endoleak is present. The source is difficult to identify due to phase of contrast. There are no suspicious osseous lesions. IMPRESSION: 1. Normal bowel without obstruction or inflammation. 2. There has been an endovascular aortic repair, and there is an endoleak. Due to the phase of contrast, the source of the leak is difficult to identify. Dictated on workstation # [id number] Dict: 06/05/21 1516 Trans: 06/05/21 1522 [id number] Interpreted by: VLADIMIR TEJADA MD Electronically signed by: Departure Impression Primary Impression: Volume overload Qualified Codes: E87.70 - Fluid overload, unspecified Additional Impression: Orthopnea Disposition: 30 STILL A PATIENT Condition: Stable Transfer Transfer Reason: Patient preference Time Spoke to Accepting Phy: 15:40 Transfer Progress Notes Spoke with Dr. Jean-Baptiste who accepts the patient to [facility] on the [facility] surg floor with tele Method of Transfer: Private Vehicle Departure-Patient Inst. Referrals: TRACEE MORENO MD (PCP/Family) Primary Care Physician LEAH VILLEGAS MD Jun 05, 2021 12:57
--- NOTE | 2021-06-05 13:28 | Diagnostic Imaging Report ---
INDICATION: Short of breath, cough. EXAMINATION: Two-view chest, 06/05/2021. FINDINGS: Two views of the chest. The heart and pulmonary vasculature appear normal. Lungs and pleural spaces are clear. No pneumothorax or effusions. No acute osseous abnormality. IMPRESSION: 1. No acute process. Dictated by: Dictated on workstation # [id number]
[2021-06-05 14:14] LABS: BASOPHILS % (AUTO) 1 % (0-10); EOSINOPHILS % (AUTO) 3 % (0-10); HEMATOCRIT 36 % (40-54); HEMOGLOBIN 11.1 g/dL (13.3-17.7); LYMPHOCYTES % (AUTO) 26 % (12-44); MEAN CORPUSCULAR HEMOGLOBIN 23 pg (25-34); MEAN CORPUSCULAR HGB CONC 31 g/dL (32-36); MEAN CORPUSCULAR VOLUME 76 fL (80-99); MEAN PLATELET VOLUME 11.2 fL (9.0-12.2); MONOCYTES % (AUTO) 9 % (0-12); NEUTROPHILS % (AUTO) 59 % (42-75); PLATELET COUNT 324 10^3/uL (130-400); WHITE BLOOD COUNT 7.8 10^3/uL (4.3-11.0)
[2021-06-05 14:15] LABS: BASOPHILS # (AUTO) 0.1 10^3/uL (0.0-0.1); EOSINOPHILS # (AUTO) 0.3 10^3/uL (0.0-0.3); LYMPHOCYTES # (AUTO) 2.1 X 10^3 (1.0-4.0); MONOCYTES # (AUTO) 0.7 X 10^3 (0.0-1.0); NEUTROPHILS # (AUTO) 4.6 X 10^3 (1.8-7.8)
[2021-06-05 14:26] LABS: PROTHROMBIN TIME PATIENT 13.6 SEC (12.2-14.7)
[2021-06-05 14:43] LABS: CARBON DIOXIDE 25 MMOL/L (21-32); CHLORIDE 99 MMOL/L (98-107); SODIUM 139 MMOL/L (135-145)
[2021-06-05 14:44] LABS: ALANINE AMINOTRANSFERASE 20 U/L (0-55); ALBUMIN 4.2 GM/DL (3.2-4.5); ALKALINE PHOSPHATASE 82 U/L (40-136); BILIRUBIN,TOTAL 0.3 MG/DL (0.1-1.0); BUN/CREATININE RATIO 15; CALCIUM 9.2 MG/DL (8.5-10.1); GFR ESTIMATED 59; GLUCOSE 364 MG/DL (70-105); LIPASE 35 U/L (8-78)
[2021-06-05] MEDS ORDERED: IOHEXOL 350 MG/ML 100 ML (OMNIPAQUE 350) VIAL IV ONE (15:00)
[2021-06-05] MEDS ORDERED: HOLD METFORMIN - RECEIVED CONTRAST 20 ML VIAL IV SCH (15:00)
[2021-06-05] MEDS ORDERED: NS 100 ML (IVPB) BAG IV ONE (15:00)
[2021-06-05] MEDS ORDERED: CATHETER FLUSH 10 ML SYR IV PRN ×2 (15:00→18:15)
[2021-06-05] MEDS ORDERED: FUROSEMIDE 40 MG/4 ML INJ (LASIX) IVP ONE (15:15)
--- NOTE | 2021-06-05 15:23 | Diagnostic Imaging Report ---
EXAMINATION: CT abdomen and pelvis with intravenous contrast. TECHNIQUE: Multiple contiguous axial images were obtained through the abdomen and pelvis after the uneventful administration of intravenous contrast. All CT scans use one or more of the following dose optimizing techniques: Automated exposure control, MA and/or KvP adjustment based on patient size and exam type or iterative reconstruction. HISTORY: Prior AAA repair, constipation. COMPARISON: 11/04/2020. FINDINGS: Limited views of the lower thorax are unremarkable. The liver is normal without focal lesion. There is no biliary ductal dilation. Stones are present in the gallbladder. Pancreas is normal. Spleen is normal. Adrenal glands are normal. The kidneys are normal. There is no hydronephrosis. Urinary bladder is normal. Visualized bowel is normal in caliber without obstruction or inflammation. There is a fat-containing umbilical hernia. No free fluid or air. No abdominal or pelvic lymphadenopathy. There are postsurgical changes of endovascular repair of the abdominal aorta, and endoleak is present. The source is difficult to identify due to phase of contrast. There are no suspicious osseous lesions. IMPRESSION: 1. Normal bowel without obstruction or inflammation. 2. There has been an endovascular aortic repair, and there is an endoleak. Due to the phase of contrast, the source of the leak is difficult to identify. Dictated by: Dictated on workstation # [id number]
[2021-06-05] MEDS ORDERED: KCL 20 MEQ TAB (K-DUR) PO ONE (15:45)
[2021-06-05 17:57] VITALS: BP 155/77
[2021-06-05] MEDS ORDERED: RT-ALBUTEROL/IPRATROPIUM 3 ML (DUONEB) VIAL IH PRN (18:15)
[2021-06-05] MEDS ORDERED: FLU QUAD HIGH DOSE 240 MCG/0.7 ML 2021-22 (FLUZONE) IM ONE (18:30)
[2021-06-05] MEDS: FUROSEMIDE 40 MG/4 ML INJ (LASIX) IV SCH (18:36)
[2021-06-05] MEDS ORDERED: NS W/KCL 20 MEQ/L 1,000 ML IV SCH (19:00)
[2021-06-05 20:00] VITALS: BP 123/56
[2021-06-05] MEDS: CATHETER FLUSH 10 ML SYR IV SCH (20:01)
[2021-06-05] MEDS: PREGABALIN 100 MG (LYRICA) CAPSULE PO SCH (20:01)
[2021-06-05] MEDS: CYCLOBENZAPRINE 10 MG (FLEXERIL) TAB PO SCH (20:01)
[2021-06-05] MEDS: APIXABAN 5 MG (ELIQUIS) TABLET PO SCH (20:01)
[2021-06-05] MEDS: inSUlin ASPART (NovoLOG) 1 UNIT/0.01 ML (CHARGE PER UNIT) SC SCH (21:37)
[2021-06-05 22:15] VITALS: BP 123/56
[2021-06-05] MEDS ORDERED: RT-ALBUTEROL/IPRATROPIUM 3 ML (DUONEB) VIAL INH PRN (22:30)
[2021-06-06] VITALS (8 sets, daily range): BP systolic 109–126; BP diastolic 58–69
[2021-06-06 06:08] LABS: POTASSIUM 3.3 MMOL/L (3.6-5.0)
[2021-06-06 06:10] LABS: CALCIUM 9.3 MG/DL (8.5-10.1)
[2021-06-06] MEDS: FUROSEMIDE 40 MG/4 ML INJ (LASIX) IV SCH (06:11)
[2021-06-06] MEDS: CATHETER FLUSH 10 ML SYR IV SCH ×3 (06:11→21:02)
[2021-06-06] MEDS: KCL 20 MEQ TAB (K-DUR) PO SCH (06:13)
[2021-06-06 06:14] LABS: CREATININE SERUM 1.06 MG/DL (0.60-1.30)
[2021-06-06] MEDS: inSUlin ASPART (NovoLOG) 1 UNIT/0.01 ML (CHARGE PER UNIT) SC SCH ×4 (06:14→21:02)
[2021-06-06] MEDS ORDERED: RT-ALBUTEROL/IPRATROPIUM 3 ML (DUONEB) VIAL INH ONE (08:00)
--- NOTE | 2021-06-06 09:43 | Consultation-Cardiology ---
HPI-Cardiology Cardiology Consultation: Date of Consultation 06/06/21 Time Seen by a Provider: 09:30 Date of Admission 06-05-21 Attending Physician Maria Guadalupe Jean-Baptiste MD Admitting Physician Sandip Ortega MD Consulting Physician Ashkan Lemos MD Primary Admin Secretary: Dr. Esparza HPI: Chief Complaint: CHF Mr. Greer is a 76 yr old male who has been admitted to [facility] from the ED. He notes a feeling of abdominal distention and has some constipation and has been using multiple stool softeners/laxative. He had quit his Lasix approx a week ago d/t leg cramps. He reports nearly a 30 lb weight gain over the last week. He reports increasing leg swelling over the last 4 days. He reports increasing SOB over the last 4 days. He continues to feel SOB. He reports he takes Plavix, ASA and Eliquis. He reports AAA repair by Dr. Urena in December 2020, but did not follow up; he states he was told last night he has a leak. He denies any c/o CP or palpitations. Review of Systems-Cardiology Review of Systems Constitutional: No chills, No fever; malaise Eyes: No vision change Ears/Nose/Throat: No epistaxis, No recent hearing loss Respiratory: As described under HPI Cardiovascular: As described under HPI Gastrointestinal: As described under HPI, constipation; No diarrhea, No nausea, No vomiting Genitourinary: No hematuria Musculoskeletal: no symptoms reported Skin: No rash on exposed areas, No ulcerations on exposed areas Psychiatric/Neurological: No anxiety, No depression, No seizure, No focal weakness, No syncope Hematologic: No bleeding abnormalities All Other Systems Reviewed Negative Unless Noted: Yes XVE-Vykwov-Sajaai Hx Patient Social History Smoking Status: Former Smoker Have you traveled recently?: No Alcohol Use?: Yes Pt feels they are or have been: No Immunizations Up To Date Date of Influenza Vaccine: Jun 06, 2020 Past Medical History PMH As described under Assessment. Family Medical History Family Medical History: No reported family h/o. Allergies and Home Medications Allergies Coded Allergies: lisinopril (Verified Allergy, Mild, 01/15/21) MUSCLE ACHES losartan (Verified Allergy, Mild, Rash, 01/15/21) lovastatin (Verified Allergy, Mild, 01/15/21) MUSCLE ACHES rosiglitazone (Verified Allergy, Mild, Hives, 01/15/21) umeclidinium (Verified Allergy, Mild, Rash, 01/15/21) Patient Home Medication List Home Medication List Reviewed: Yes Albuterol Sulfate (Proair Hfa) 1 Puff Puff, 2 PUFF IH Q4H PRN for SHORTNESS OF BREATH, (Reported) Entered as Reported by: DAVID SADLER on 01/15/211042 Last Action: Held Apixaban (Eliquis) 5 Mg Tablet, 5 MG PO BID, (Reported) Entered as Reported by: DAVID SADLER on 01/15/211042 Last Action: Continued Clopidogrel Bisulfate (Clopidogrel) 75 Mg Tablet, 75 MG PO DAILY, (Reported) Entered as Reported by: DAVID SADLER on 01/15/211042 Last Action: Continued Diltiazem HCl (Diltiazem 24Hr ER) 120 Mg Cap.er.24h, 120 MG PO DAILY, (Reported) Entered as Reported by: CHARLIE GIRON on 06/06/211123 Last Action: Continued Dronedarone HCl (Multaq) 400 Mg Tablet, 400 MG PO BID, (Reported) Entered as Reported by: CHARLIE GIRON on 06/06/211123 Last Action: Continued Fenofibrate Nanocrystallized (Fenofibrate) 145 Mg Tablet, 145 MG PO DAILY, (Reported) Entered as Reported by: DAVID SADLER on 01/15/211042 Last Action: Converted Fluticasone Propionate (Fluticasone Propionate) 16 Gm Brickeys.susp, 2 SPRAYS NSEACH DAILY, (Reported) Entered as Reported by: CHARLIE GIRON on 06/06/211123 Last Action: Continued Furosemide (Furosemide) 40 Mg Tablet, 40 MG PO BID PRN for FLUID RETENTION, (Reported) Entered as Reported by: DAVID SADLER on 01/15/211042 Last Action: Continued Hydrochlorothiazide (Hydrochlorothiazide) 12.5 Mg Tablet, 12.5 MG PO DAILY PRN for FLUID RETENTION, (Reported) Entered as Reported by: DAVID SADLER on 01/15/211042 Last Action: Held Hydrocodone/Acetaminophen (Hydrocodone-Acetamin 7.5-325) 1 Each Tablet, 1 EA PO Q6H PRN for PAIN-MODERATE (5-7), (Reported) Entered as Reported by: CHARLIE GIRON on 06/06/211123 Last Action: Continued Insulin Aspart (Novolog Flexpen) 300 Units/3 Ml Solution, 25 UNITS SQ TIDWM, (Reported) Entered as Reported by: DAVID SADLER on 01/15/211042 Last Action: Converted Insulin Glargine,Hum.rec.anlog (Basaglar Kwikpen U-100) 100 Unit/1 Ml Insuln.pen, 60 UNIT SQ BID, (Reported) Entered as Reported by: DAVID SADLER on 01/15/211042 Last Action: Converted Meloxicam (Meloxicam) 15 Mg Tablet, 15 MG PO DAILY, (Reported) Entered as Reported by: DAVID SADLER on 01/15/211042 Last Action: Held Metoprolol Succinate (Metoprolol Succinate) 50 Mg Tab.er.24h, 50 MG PO DAILY, (Reported) Entered as Reported by: DAVID SADLER on 01/15/211042 Last Action: Continued Montelukast Sodium (Montelukast Sodium) 10 Mg Tablet, 10 MG PO HS, (Reported) Entered as Reported by: DAVID SADLER on 01/15/211042 Last Action: Continued Omeprazole (Omeprazole) 20 Mg Capsule.dr, 20 MG PO DAILY, (Reported) Entered as Reported by: DAVID SADLER on 01/15/211042 Last Action: Continued Pregabalin (Pregabalin) 100 Mg Capsule, 100 MG PO TID, (Reported) Entered as Reported by: DAVID SADLER on 01/15/211042 Last Action: Continued Rosuvastatin Calcium (Rosuvastatin Calcium) 40 Mg Tablet, 40 MG PO DAILY, (Reported) Entered as Reported by: DAVID SADLER on 01/15/211042 Last Action: Converted Spironolactone (Spironolactone) 25 Mg Tablet, 25 MG PO DAILY PRN for FLUID RETENTION, (Reported) Entered as Reported by: CHARLIE GIRON on 06/06/211123 Last Action: Continued Discontinued Medications Diltiazem HCl (Cardizem Cd) 120 Mg Cap.er.24h, 120 MG PO DAILY, (Reported) Discontinued Reason: Duplicate Order Entered as Reported by: DAVID SADLER on 01/15/211042 Last Action: Discontinued Fluticasone Propionate (Flonase Allergy Relief) 9.9 Ml Brickeys.susp, 2 SPRAY NS DAILY PRN for ALLERGIES, (Reported) Discontinued Reason: Duplicate Order Entered as Reported by: DAVID SADLER on 01/15/211042 Last Action: Discontinued Ipratropium/Albuterol Sulfate (Iprat-Albut 0.5-3(2.5) mg/3 ml) 3 Ml Ampul.neb, 3 ML IH Q6H PRN for SHORTNESS OF BREATH, (Reported) Discontinued Reason: No Longer Taking Entered as Reported by: DAVID SADLER on 01/15/211042 Last Action: Discontinued Physical Exam-Cardiology Physical Exam Vital Signs/I&O 06/07/21 06/07/21 06/07/21 06/07/21 01:00 03:43 07:00 07:49 Temp 36.4 35.5 Pulse 68 56 67 64 Resp 20 20 B/P (MAP) 113/64 (80) 119/68 (85) Pulse Ox 92 93 O2 Delivery Room Air 06/07/21 06/07/21 06/07/21 08:00 09:16 11:14 Temp 35.6 Pulse 85 Resp 20 B/P (MAP) 138/60 (86) Pulse Ox 90 93 O2 Delivery Room Air Room Air O2 Flow Rate 0.00 06/06/21 23:59 Intake Total 3730 ml Output Total 3775 ml Balance -45 ml Capillary Refill : Less Than 3 Seconds Constitutional: AAO x 3, well-developed, well-nourished HEENT: PERRL, hearing is well preserved, oral hygience is good Neck: No carotid bruit; carotid pulses are 2 + bilaterally Respiratory: No accessory muscle use, No respiratory distress; chest expansion is symmetric, chest is bilaterally symmetric, rhonchi (scattered rhonchi) Cardiovascular: regular rate-rhythm; No JVD; S1 and S2 Gastrointestinal: soft, round, distended, hernia (umbilical), audible bowel sounds Extremities: other (mod bilat LE swelling) Neurologic/Psychiatric: grossly intact (moves all extremities) Skin: No rash on exposed areas, No ulcerations on exposed areas Lymphatic: no adenopathy Data Review Labs Laboratory Tests 06/06/21 15:51: Glucometer 225H 06/06/21 20:43: Glucometer 220H 06/07/21 05:42: White Blood Count 6.5, Red Blood Count 4.61, Hemoglobin 10.4L, Hematocrit 35L, Mean Corpuscular Volume 77L, Mean Corpuscular Hemoglobin 23L, Mean Corpuscular Hemoglobin Concent 29L, Red Cell Distribution Width 16.1H, Platelet Count 282, Mean Platelet Volume 11.0, Immature Granulocyte % (Auto) 1, Neutrophils (%) (Auto) 51, Lymphocytes (%) (Auto) 30, Monocytes (%) (Auto) 12, Eosinophils (%) (Auto) 5, Basophils (%) (Auto) 1, Neutrophils # (Auto) 3.3, Lymphocytes # (Auto) 2.0, Monocytes # (Auto) 0.8, Eosinophils # (Auto) 0.4H, Basophils # (Auto) 0.0, Immature Granulocyte # (Auto) 0.1, Sodium Level 138, Potassium Level 4.0, Chloride Level 104, Carbon Dioxide Level 24, Anion Gap 10, Blood Urea Nitrogen 11, Creatinine 0.86, Estimat Glomerular Filtration Rate 87, BUN/Creatinine Ratio 13, Glucose Level 172H, Calcium Level 9.3, Corrected Calcium 9.8, Magnesium Level 2.0, Total Bilirubin 0.5, Aspartate Amino Transf (AST/SGOT) 29, Alanine Aminotransferase (ALT/SGPT) 24, Alkaline Phosphatase 48, Total Protein 6.0L, Albumin 3.4 06/07/21 11:11: Glucometer 317H Radiology NAME: INGRID GREER [facility] REC#: [id number] PT STATUS: DEP ER : 1945 PHYSICIAN: LEAH VILLEGAS MD ADMIT DATE: 06/05/21/ER FS Signed Date of Exam:06/05/21 CT ABDOMEN/PELVIS W EXAMINATION: CT abdomen and pelvis with intravenous contrast. TECHNIQUE: Multiple contiguous axial images were obtained through the abdomen and pelvis after the uneventful administration of intravenous contrast. All CT scans use one or more of the following dose optimizing techniques: Automated exposure control, MA and/or KvP adjustment based on patient size and exam type or iterative reconstruction. HISTORY: Prior AAA repair, constipation. COMPARISON: 11/04/2020. FINDINGS: Limited views of the lower thorax are unremarkable. The liver is normal without focal lesion. There is no biliary ductal dilation. Stones are present in the gallbladder. Pancreas is normal. Spleen is normal. Adrenal glands are normal. The kidneys are normal. There is no hydronephrosis. Urinary bladder is normal. Visualized bowel is normal in caliber without obstruction or inflammation. There is a fat-containing umbilical hernia. No free fluid or air. No abdominal or pelvic lymphadenopathy. There are postsurgical changes of endovascular repair of the abdominal aorta, and endoleak is present. The source is difficult to identify due to phase of contrast. There are no suspicious osseous lesions. IMPRESSION: 1. Normal bowel without obstruction or inflammation. 2. There has been an endovascular aortic repair, and there is an endoleak. Due to the phase of contrast, the source of the leak is difficult to identify. Dictated by: Dictated on workstation # [id number] Dict: 06/05/21 1516 Trans: 06/05/21 1642 [id number] Interpreted by: VLADIMIR TEJADA MD ECG Impression ECG Initial ECG Rhythm: Normal Sinus A/P-Cardiology Assessment/Admission Diagnosis Abdominal bloating of undetermined etiology - medical services managing P. Atrial fibrillation - Eliquis for stroke prophylaxis - Failed cardioversion by Dr. Esparza on 01-15-21 - DAREN prior to cardioversion on 01-15-[address] Esparza showed dilated LA. No left atrial appendage clot seen. LVEF 50%. Mild MR. - H/o cardioversion on 02-05-21 at [facility] by Dr. Cornejo - currently SR on EKG of 06-05-21 H/O multiple TIA's in the past Coronary artery disease - history of multiple interventions in the past, reporting that he had multiple stents done at [facility] in the remote past - details unknown - Plavix and ASA Abdominal aortic aneurysm - workup showed that the aneurysm measured 5 cm in the infrarenal abdominal aorta, he has bilateral iliac aneurysm - s/p AAA repair done by Dr. Urena in December 2020 - Per CT of the abdomen on 06-05-21: there is an endoleak. Due to the phase of contrast, the source of the leak is difficult to identify. Hypertension - controlled Hyperlipidemia - statin tx Diabetes mellitus - followed and managed by primary care physician History of sleep apnea - was intolerant to C Pap machine Obesity - BMI 38, we discussed weight loss. Tobaccoism - stopped smoking 2 years ago COPD Discussion and Recomendations There is no clinical or radiologic or BNP evidence of any decompensated CHF Sypmtoms of shortess of breath appear to be due to obesity hypovent syndrome and ac exac of COPD Hypokalemia is likely due to aggressive diuresis. We recommending reducing Lasix dose and changing to oral administration Abdominal distention does not appear to be of cardiac origin. Management of this is by Dr Reynolds who is patient's attending during this admission Continue Eliquis d/t PAF. Stop ASA, but continue Plavix d/t known h/o CAD; having him on all 3 agents increases his risk of bleeding Monitor lab closely Replace electrolytes as indicated Further recs will be based on his hospital course This is late entry for my H&P that I conducted with Joanna Fierro APRN, on 06/06/21 at 9:30 am My changes are in italics JOANNA FIERRO [employer] Jun 06, 2021 09:43 ASHKAN LEMOS MD FACP [facility] Jun 07, 2021 12:27
[2021-06-06] MEDS: meTOproloL SUCCINATE 50 MG (TOPROL XL) TAB PO SCH (10:26)
[2021-06-06] MEDS: CYCLOBENZAPRINE 10 MG (FLEXERIL) TAB PO SCH ×2 (10:27→21:02)
[2021-06-06] MEDS: APIXABAN 5 MG (ELIQUIS) TABLET PO SCH ×2 (10:27→21:01)
[2021-06-06] MEDS: CLOPIDOGREL 75 MG (PLAVIX) TABLET PO SCH (10:27)
[2021-06-06] MEDS: dilTIAZem120 MG (CARDIZEM CD) CAP PO SCH (10:27)
[2021-06-06] MEDS: PREGABALIN 100 MG (LYRICA) CAPSULE PO SCH ×3 (10:27→21:02)
[2021-06-06] MEDS ORDERED: HYDR-3817 PO (11:24)
[2021-06-06] MEDS ORDERED: DILT-27 PO (11:24)
[2021-06-06] MEDS ORDERED: FLUT16SP22 NSEACH (11:24)
[2021-06-06] MEDS ORDERED: SPIR25TA5 PO (11:24)
[2021-06-06] MEDS ORDERED: DRON400T6 PO (11:24)
--- NOTE | 2021-06-06 12:03 | History & Physical-Hospitalist ---
History of Present Illness HPI/Chief Complaint Chief complaint: Shortness of breath History of present illness: This is a 76-year-old white male past medical history of atrial fibrillation who presents with recurrent congestive heart failure volume overload. Currently he reports feeling much better. Echocardiogram ordered along with cardiology consult. Pulmonary consult will also be added due to suspicion of untreated sleep apnea. BMI 39. Home meds will be restarted. Hep-Lock and IV fluid. Source: patient Exam Limitations: no limitations Date Seen 06/06/21 Time Seen by a Provider: 11:00 Attending Physician Maria Guadalupe Jean-Baptiste MD PCP Self,Sandip CARLISLE Referring Physician Date of Admission Jun 05, 2021 at 17:27 Home Medications & Allergies Home Medications Reviewed patient Home Medication Reconciliation performed by pharmacy medication reconciliations autobody technician and/or nursing. Patients Allergies have been reviewed. Allergies Allergies Coded Allergies lisinopril (Verified Allergy, Mild, 01/15/21) MUSCLE ACHES losartan (Verified Allergy, Mild, Rash, 01/15/21) lovastatin (Verified Allergy, Mild, 01/15/21) MUSCLE ACHES rosiglitazone (Verified Allergy, Mild, Hives, 01/15/21) umeclidinium (Verified Allergy, Mild, Rash, 01/15/21) Past Twohqam-Nuybvb-Guizga Hx Patient Social History Marrital Status: single Employed/Student: retired Tobacco Use?: No Smoking Status: Former Smoker Smokeless type used: Chew Smokeless Tobacco Frequency: Light User Use of E-Cig and/or Vaping dev: No Substance use?: No Alcohol Use?: Yes Alcohol type: Hard Liquor Alcohol Frequency: Rarely Pt feels they are or have been: No Immunizations Up To Date Date of Influenza Vaccine: Jun 06, 2020 First/Initial COVID19 Vaccinat: DECEMBER 2020 Second COVID19 Vaccination Moi: JANUARY 2021 Tetanus Booster (TDap): More Than 5 Years Hepatitis A: No Hepatitis B: No Current Status Advance Directives: No Communicates: Verbally Primary Language: [place]er Preferred Spoken Language: [place] Is interpretation needed?: Yes Sensory deficits: Vision impairment, Hearing impairment Implanted or Applied Medical D: Stents Past Medical History Surgeries: Appendectomy Emphysema Atrial Fibrillation, Coronary Artery Disease, High Cholesterol, Hypertension TIA Gastroesophageal Reflux Skin Did You Recieve Any Treatments: Yes What Type of Treatment Did You: Surgical Intervention Blood Disorders: No Review of Systems Constitutional: see HPI, malaise, weakness EENTM: no symptoms reported Respiratory: short of breath Cardiovascular: no symptoms reported Gastrointestinal: no symptoms reported Genitourinary: no symptoms reported Musculoskeletal: no symptoms reported Skin: no symptoms reported Psychiatric/Neurological: No Symptoms Reported All Other Systems Reviewed Negative Unless Noted: Yes Physical Exam Physical Exam Vital Signs Vital Signs - First Documented 06/05/21 06/05/21 12:48 22:15 Temp 36.0 Pulse 82 Resp 26 B/P (MAP) 157/80 (105) Pulse Ox 96 O2 Delivery Room Air FiO2 21 Capillary Refill : Less Than 3 Seconds Height, Weight, BMI Height: '" Weight: lbs. oz. kg; 39.12 BMI Method: General Appearance: No Apparent Distress, Anxious, Chronically ill, Obese Eyes: Right Eye Normal Inspection, Right Eye PERRL HEENT: PERRL/EOMI, Normal ENT Inspection, Pharynx Normal, Moist Mucous Membr anes Neck: Full Range of Motion, Normal Inspection, Non Tender Respiratory: Chest Non Tender, Lungs Clear, No Accessory Muscle Use, No Respiratory Distress, Decreased Breath Sounds Cardiovascular: Regular Rate, Rhythm, No Edema, No Gallop, No JVD, No Murmur, Normal Peripheral Pulses, Irregularly Irregular Gastrointestinal: Normal Bowel Sounds, No Organomegaly, No Pulsatile Mass, Non Tender, Soft Back: Normal Inspection, No CVA Tenderness, No Vertebral Tenderness Extremity: Normal Capillary Refill, Normal Inspection, Normal Range of Motion, Non Tender, No Calf Tenderness, No Pedal Edema Neurologic/Psychiatric: Alert, Oriented x3, No Motor/Sensory Deficits, Normal Mood/Affect Skin: Normal Color, Warm/Dry Lymphatic: No Adenopathy Results Results/Procedures Labs Laboratory Tests 06/05/21 13:30 06/06/21 05:30 Patient resulted labs reviewed. Assessment/Plan Admission Diagnosis Assessment: Acute volume overload History of congestive heart failure Atrial fibrillation Hypertension Diabetes mellitus Suspicion for IVONNE undiagnosed Elevated BMI Plan: Supportive care Cardiology consult Pulmonary consult Home meds Admission Status: Inpatient Order (span 2 midnights) Reason for Inpatient Admission: Volume overload Diagnosis/Problems Diagnosis/Problems (1) Volume overload Status: Acute Qualifiers: Hypervolemia type: unspecified Qualified Codes: E87.70 - Fluid overload, unspecified (2) Afib (3) Orthopnea Status: Acute ANTHONY BRANCH DO Jun 06, 2021 12:03
[2021-06-06 13:27] LABS: ALBUMIN 3.5 GM/DL (3.2-4.5); BILIRUBIN,DIRECT 0.3 MG/DL (0.0-0.3); BILIRUBIN,INDIRECT 0.3 MG/DL; BILIRUBIN,TOTAL 0.6 MG/DL (0.1-1.0); TOTAL PROTEIN 6.2 GM/DL (6.4-8.2)
--- NOTE | 2021-06-06 15:16 | Diagnostic Imaging Report ---
EXAMINATION: Chest, one view. HISTORY: Fluid retention. COMPARISON: 01/15/2021. FINDINGS: The lungs are clear without edema or pneumonia. No pleural effusion or pneumothorax. Heart size is normal. IMPRESSION: 1. Clear lungs. Dictated by: Dictated on workstation # [id number]
[2021-06-06] MEDS: RT-ALBUTEROL/IPRATROPIUM 3 ML (DUONEB) VIAL INH SCH (21:34)
[2021-06-07 03:43] VITALS: BP 113/64
[2021-06-07] MEDS ORDERED: FUROSEMIDE 40 MG (LASIX) TAB PO PRN (06:15)
[2021-06-07] MEDS ORDERED: HYDROcodone/APAP 7.5 MG/325 MG (LORTAB, LORCET PLUS) TABLET PO PRN (06:15)
[2021-06-07] MEDS ORDERED: SPIRONOLACTONE 25 MG (ALDACTONE) TAB PO PRN (06:15)
[2021-06-07 06:17] LABS: CALCIUM 9.3 MG/DL (8.5-10.1)
[2021-06-07 06:22] LABS: CREATININE SERUM 0.86 MG/DL (0.60-1.30)
[2021-06-07] MEDS: inSUlin ASPART (NovoLOG) 1 UNIT/0.01 ML (CHARGE PER UNIT) SC SCH ×4 (06:32→20:09)
[2021-06-07 06:40] LABS: BASOPHILS % (AUTO) 1 % (0-10); EOSINOPHILS # (AUTO) 0.4 10^3/uL (0.0-0.3); EOSINOPHILS % (AUTO) 5 % (0-10); HEMATOCRIT 35 % (40-54); HEMOGLOBIN 10.4 g/dL (13.3-17.7); LYMPHOCYTES % (AUTO) 30 % (12-44); MEAN CORPUSCULAR HEMOGLOBIN 23 pg (25-34); MEAN CORPUSCULAR HGB CONC 29 g/dL (32-36); MEAN CORPUSCULAR VOLUME 77 fL (80-99); MONOCYTES # (AUTO) 0.8 10^3/uL (0.0-1.0); MONOCYTES % (AUTO) 12 % (0-12); NEUTROPHILS # (AUTO) 3.3 10^3/uL (1.8-7.8); NEUTROPHILS % (AUTO) 51 % (42-75); PLATELET COUNT 282 10^3/uL (130-400); WHITE BLOOD COUNT 6.5 10^3/uL (4.3-11.0)
[2021-06-07 06:41] LABS: ALBUMIN 3.4 GM/DL (3.2-4.5)
[2021-06-07] MEDS: CATHETER FLUSH 10 ML SYR IV SCH ×3 (06:42→20:55)
[2021-06-07] MEDS: KCL 20 MEQ TAB (K-DUR) PO SCH (06:43)
[2021-06-07 06:46] LABS: BILIRUBIN,TOTAL 0.5 MG/DL (0.1-1.0)
[2021-06-07] MEDS: PANTOPRAZOLE 20 MG TABLET (PROTONIX) PO SCH (06:48)
[2021-06-07 07:49] VITALS: BP 119/68
--- NOTE | 2021-06-07 08:03 | Progress Note - Hospitalist ---
Subjective HPI/CC On Admission Date Seen by Provider: Jun 07, 2021 Time Seen by Provider: 11:00 Chief complaint: Shortness of breath History of present illness: This is a 76-year-old white male past medical history of atrial fibrillation who presents with recurrent congestive heart failure volume overload. Currently he reports feeling much better. Echocardiogram ordered along with cardiology consult. Pulmonary consult will also be added due to suspicion of untreated sleep apnea. BMI 39. Home meds will be restarted. Hep-Lock and IV fluid. Subjective/Events-last exam Patient is much improved Once albuterol neb treatments changed to inhaler which helps him bring up secretions Flu shot completed today Edema is improved Oxygen supplementation maintained Review of Systems Pulmonary: Dyspnea Objective Exam Vital Signs Vital Signs Date Time Temp Pulse Resp B/P (MAP) Pulse Ox O2 Delivery O2 Flow Rate FiO2 06/08/21 03:31 36.4 73 20 113/50 (71) 92 Room Air 06/07/21 19:57 0.00 06/05/21 22:15 21 Capillary Refill : Less Than 3 Seconds General Appearance: No Apparent Distress, WD/WN, Chronically ill, Obese Respiratory: Normal Breath Sounds, No Accessory Muscle Use, No Respiratory Distress, Decreased Breath Sounds Cardiovascular: Regular Rate, Rhythm Neurologic/Psychiatric: Alert, Oriented x3, No Motor/Sensory Deficits, Normal Mood/Affect Results/Procedures Lab Laboratory Tests 06/07/21 05:42 Patient resulted labs reviewed. Assessment/Plan Assessment and Plan Assess & Plan/Chief Complaint Assessment: Acute volume overload History of congestive heart failure Atrial fibrillation Hypertension Diabetes mellitus Suspicion for IVONNE undiagnosed Elevated BMI Severe iron deficiency with microcytosis Vitamin B12 deficiency Plan: Supportive care Cardiology consult Pulmonary consult Home meds 06/07/2021: Supportive care Appreciate cardiology Oxygen supplementation Change albuterol to MDI IV iron B12 supplement Diagnosis/Problems Diagnosis/Problems (1) Volume overload Status: Acute Qualifiers: Hypervolemia type: unspecified Qualified Codes: E87.70 - Fluid overload, unspecified (2) Afib (3) Orthopnea Status: Acute ANTHONY BRANCH DO Jun 07, 2021 08:03
[2021-06-07] MEDS: FLUTICASONE NASAL SPRAY (FLONASE) 16 GM BTL NS SCH (08:57)
[2021-06-07] MEDS: meTOproloL SUCCINATE 50 MG (TOPROL XL) TAB PO SCH (08:58)
[2021-06-07] MEDS: ROSUVASTATIN 20 MG (CRESTOR) TABLET PO SCH (08:58)
[2021-06-07] MEDS: CYCLOBENZAPRINE 10 MG (FLEXERIL) TAB PO SCH ×2 (08:59→20:15)
[2021-06-07] MEDS: DRONEDARONE TABLET 400 MG TABLET PO SCH ×2 (08:59→20:15)
[2021-06-07] MEDS: FENOFIBRATE 134 MG (LOFIBRA) CAPSULE PO SCH (08:59)
[2021-06-07] MEDS ORDERED: dilTIAZem120 MG (CARDIZEM CD) CAP PO SCH (09:00)
[2021-06-07] MEDS ORDERED: PREGABALIN 100 MG (LYRICA) CAPSULE PO SCH (09:00)
[2021-06-07] MEDS ORDERED: CLOPIDOGREL 75 MG (PLAVIX) TABLET PO SCH (09:00)
[2021-06-07] MEDS ORDERED: meTOproloL SUCCINATE 50 MG (TOPROL XL) TAB PO SCH (09:00)
[2021-06-07] MEDS: FUROSEMIDE 40 MG (LASIX) TAB PO SCH (09:00)
[2021-06-07] MEDS: CLOPIDOGREL 75 MG (PLAVIX) TABLET PO SCH (09:00)
[2021-06-07] MEDS ORDERED: APIXABAN 5 MG (ELIQUIS) TABLET PO SCH (09:00)
[2021-06-07] MEDS: dilTIAZem120 MG (CARDIZEM CD) CAP PO SCH (09:01)
[2021-06-07] MEDS: inSUlin ASPART (NovoLOG) 1 UNIT/0.01 ML (CHARGE PER UNIT) SQ SCH ×3 (09:03→18:01)
[2021-06-07] MEDS: APIXABAN 5 MG (ELIQUIS) TABLET PO SCH ×2 (09:04→20:15)
[2021-06-07] MEDS: PREGABALIN 100 MG (LYRICA) CAPSULE PO SCH ×3 (09:04→20:15)
[2021-06-07] MEDS: RT-ALBUTEROL/IPRATROPIUM 3 ML (DUONEB) VIAL INH SCH (09:16)
[2021-06-07 11:14] VITALS: BP 138/60
[2021-06-07] MEDS ORDERED: RT-ALBUTEROL HFA 8.5 GM INHALER IH SCH (12:00)
--- NOTE | 2021-06-07 13:44 | Progress Note - Cardiology ---
Cardiology SOAP Progress Note Subjective: Abd distention is better No cp or palp or syncope or shortness of breath at rest Gen weakness and malaise No n/v/d Objective: I&O/Vital Signs 06/07/21 06/07/21 06/07/21 06/07/21 03:43 07:00 07:49 08:00 Temp 36.4 35.5 Pulse 56 67 64 Resp 20 20 B/P (MAP) 113/64 (80) 119/68 (85) Pulse Ox 92 93 O2 Delivery Room Air Room Air 06/07/21 06/07/21 06/07/21 09:16 11:14 12:53 Temp 35.6 Pulse 85 76 Resp 20 B/P (MAP) 138/60 (86) Pulse Ox 90 93 O2 Delivery Room Air O2 Flow Rate 0.00 06/07/21 00:00 Intake Total 3730 ml Output Total 3775 ml Balance -45 ml Constitutional: AAO x 3, well-developed, well-nourished Respiratory: No accessory muscle use, No respiratory distress; chest expansion is symmetric, chest is bilaterally symmetric, rhonchi (scattered rhonchi) Cardiovascular: regular rate-rhythm; No JVD; S1 and S2 Gastrointestional: soft, round, distended, hernia (umbilical), audible bowel sounds Extremities: other (mod bilat LE swelling) Neurologic/Psychiatric: grossly intact (moves all extremities) Skin: No rash on exposed areas, No ulcerations on exposed areas Results/Procedures: Labs Laboratory Tests 06/06/21 15:51: Glucometer 225H 06/06/21 20:43: Glucometer 220H 06/07/21 05:42: White Blood Count 6.5, Red Blood Count 4.61, Hemoglobin 10.4L, Hematocrit 35L, Mean Corpuscular Volume 77L, Mean Corpuscular Hemoglobin 23L, Mean Corpuscular Hemoglobin Concent 29L, Red Cell Distribution Width 16.1H, Platelet Count 282, Mean Platelet Volume 11.0, Immature Granulocyte % (Auto) 1, Neutrophils (%) ( Auto) 51, Lymphocytes (%) (Auto) 30, Monocytes (%) (Auto) 12, Eosinophils (%) (Auto) 5, Basophils (%) (Auto) 1, Neutrophils # (Auto) 3.3, Lymphocytes # (Auto) 2.0, Monocytes # (Auto) 0.8, Eosinophils # (Auto) 0.4H, Basophils # (Auto) 0.0, Immature Granulocyte # (Auto) 0.1, Sodium Level 138, Potassium Level 4.0, Chloride Level 104, Carbon Dioxide Level 24, Anion Gap 10, Blood Urea Nitrogen 11, Creatinine 0.86, Estimat Glomerular Filtration Rate 87, BUN/Creatinine Ratio 13, Glucose Level 172H, Calcium Level 9.3, Corrected Calcium 9.8, Magnesium Level 2.0, Total Bilirubin 0.5, Aspartate Amino Transf (AST/SGOT) 29, Alanine Aminotransferase (ALT/SGPT) 24, Alkaline Phosphatase 48, Total Protein 6.0L, Albumin 3.4 06/07/21 11:11: Glucometer 317H Laboratory Tests 06/06/21 05:30 06/07/21 05:42 A/P: Assessment: Abdominal bloating of undetermined etiology - Medical services managing P. Atrial fibrillation - Eliquis for stroke prophylaxis - Failed cardioversion by Dr. Esparza on 01-15-21 - DAREN prior to cardioversion on 01-15-[address] Esparza showed dilated LA. No left atrial appendage clot seen. LVEF 50%. Mild MR. - H/o cardioversion on 02-05-21 at [facility] by Dr. Cornejo - currently SR on EKG of 06-05-21 H/O multiple TIA's in the past Coronary artery disease - history of multiple interventions in the past, reporting that he had multiple stents done at [facility] in the remote past - details unknown - Plavix and ASA Abdominal aortic aneurysm - workup showed that the aneurysm measured 5 cm in the infrarenal abdominal aorta, he has bilateral iliac aneurysm - s/p AAA repair done by Dr. Urena in December 2020 - Per CT of the abdomen on 06-05-21: there is an endoleak. Due to the phase of contrast, the source of the leak is difficult to identify. Hypertension - controlled Hyperlipidemia - statin tx Diabetes mellitus - followed and managed by primary care physician History of sleep apnea - was intolerant to C Pap machine Obesity - BMI 38, we discussed weight loss. Tobaccoism - stopped smoking 2 years ago COPD Plan: Continue oral diuretics Continue Eliquis d/t PAF. Stop ASA, but continue Plavix d/t known h/o CAD; having him on all 3 agents increases his risk of bleeding Monitor lab closely Replace electrolytes as indicated Ok to d/c from cardiac standpoint ARLEN LIZARRAGA MD [facility] CCDS Jun 07, 2021 13:44
[2021-06-07 16:00] VITALS: BP 115/66
[2021-06-07 19:24] VITALS: BP 128/71
[2021-06-07] MEDS: RT-ALBUTEROL SULF 2.5 MG/3 ML PRE-MIX VIAL INH SCH (19:56)
[2021-06-07] MEDS: MONTELUKAST 10 MG (SINGULAIR) TAB PO SCH (20:15)
[2021-06-07 23:39] VITALS: BP 115/61
[2021-06-08 03:31] VITALS: BP 113/50
[2021-06-08] MEDS: CATHETER FLUSH 10 ML SYR IV SCH ×2 (06:12→12:54)
[2021-06-08] MEDS: KCL 20 MEQ TAB (K-DUR) PO SCH (06:22)
[2021-06-08] MEDS: inSUlin ASPART (NovoLOG) 1 UNIT/0.01 ML (CHARGE PER UNIT) SC SCH ×4 (06:22→20:31)
[2021-06-08] MEDS: PANTOPRAZOLE 20 MG TABLET (PROTONIX) PO SCH (06:22)
[2021-06-08 06:23] LABS: BASOPHILS # (AUTO) 0.1 10^3/uL (0.0-0.1); BASOPHILS % (AUTO) 1 % (0-10); EOSINOPHILS # (AUTO) 0.4 10^3/uL (0.0-0.3); EOSINOPHILS % (AUTO) 5 % (0-10); HEMATOCRIT 36 % (40-54); HEMOGLOBIN 10.9 g/dL (13.3-17.7); LYMPHOCYTES # (AUTO) 1.8 10^3/uL (1.0-4.0); LYMPHOCYTES % (AUTO) 22 % (12-44); MEAN CORPUSCULAR HEMOGLOBIN 23 pg (25-34); MEAN CORPUSCULAR HGB CONC 30 g/dL (32-36); MEAN CORPUSCULAR VOLUME 76 fL (80-99); MEAN PLATELET VOLUME 10.5 fL (9.0-12.2); MONOCYTES # (AUTO) 0.9 10^3/uL (0.0-1.0); MONOCYTES % (AUTO) 11 % (0-12); NEUTROPHILS # (AUTO) 4.8 10^3/uL (1.8-7.8); NEUTROPHILS % (AUTO) 61 % (42-75); PLATELET COUNT 296 10^3/uL (130-400)
[2021-06-08 06:34] LABS: ALBUMIN 3.6 GM/DL (3.2-4.5)
[2021-06-08 06:35] LABS: CALCIUM 9.3 MG/DL (8.5-10.1)
[2021-06-08 06:36] LABS: TOTAL PROTEIN 6.4 GM/DL (6.4-8.2)
[2021-06-08 06:38] LABS: BILIRUBIN,TOTAL 0.8 MG/DL (0.1-1.0)
[2021-06-08 06:40] LABS: CREATININE SERUM 1.1 MG/DL (0.60-1.30)
[2021-06-08] MEDS: RT-ALBUTEROL SULF 2.5 MG/3 ML PRE-MIX VIAL INH SCH ×4 (06:53→20:52)
[2021-06-08] MEDS ORDERED: IRON DEXTRAN INJECTION 25 MG in NS (IVPB) 5.75 ML, SYRINGE-IVPB 1 SYRINGE IV ONE ×3 (08:00)
[2021-06-08] MEDS ORDERED: CYANOCOBALAMIN INJ 1000 MCG/ML IM ONE (08:00)
--- NOTE | 2021-06-08 08:02 | Progress Note - Hospitalist ---
Subjective HPI/CC On Admission Date Seen by Provider: Jun 08, 2021 Time Seen by Provider: 11:00 Chief complaint: Shortness of breath History of present illness: This is a 76-year-old white male past medical history of atrial fibrillation who presents with recurrent congestive heart failure volume overload. Currently he reports feeling much better. Echocardiogram ordered along with cardiology consult. Pulmonary consult will also be added due to suspicion of untreated sleep apnea. BMI 39. Home meds will be restarted. Hep-Lock and IV fluid. Subjective/Events-last exam Patient doing much better Less shortness of breath We will discontinue telemetry Mucinex seems to be helping PT and OT will be ordered Overnight pulse ox tonight Review of Systems General: Fatigue, Malaise Pulmonary: Dyspnea Objective Exam Vital Signs Vital Signs Date Time Temp Pulse Resp B/P (MAP) Pulse Ox O2 Delivery O2 Flow Rate FiO2 06/09/21 03:24 37.2 76 18 121/61 (81) 90 Room Air 06/08/21 14:35 0.00 06/05/21 22:15 21 Capillary Refill : Less Than 3 Seconds General Appearance: No Apparent Distress, WD/WN, Chronically ill, Obese Respiratory: No Accessory Muscle Use, No Respiratory Distress, Decreased Breath Sounds Cardiovascular: Regular Rate, Rhythm Neurologic/Psychiatric: Alert, Oriented x3 Results/Procedures Lab Laboratory Tests 06/08/21 05:45 Patient resulted labs reviewed. Assessment/Plan Assessment and Plan Assess & Plan/Chief Complaint Assessment: Acute volume overload History of congestive heart failure Atrial fibrillation Hypertension Diabetes mellitus Suspicion for IVONNE undiagnosed Elevated BMI Severe iron deficiency with microcytosis Vitamin B12 deficiency Plan: Supportive care Cardiology consult Pulmonary consult Home meds 06/07/2021: Supportive care Appreciate cardiology Oxygen supplementation Change albuterol to MDI IV iron B12 supplement 06/08/2021: Iron supplement Vitamin B12 Overnight O2 study Diagnosis/Problems Diagnosis/Problems (1) Volume overload Status: Acute Qualifiers: Hypervolemia type: unspecified Qualified Codes: E87.70 - Fluid overload, unspecified (2) Afib (3) Orthopnea Status: Acute ANTHONY BRANCH DO Jun 08, 2021 08:02
[2021-06-08 08:15] VITALS: BP 121/82
[2021-06-08] MEDS ORDERED: IRON DEXTRAN INJECTION 1,000 MG in NS (IVPB) 250 ML IV ONE (08:30)
[2021-06-08] MEDS: ROSUVASTATIN 20 MG (CRESTOR) TABLET PO SCH (08:39)
[2021-06-08] MEDS: PREGABALIN 100 MG (LYRICA) CAPSULE PO SCH ×3 (08:39→20:30)
[2021-06-08] MEDS: CYCLOBENZAPRINE 10 MG (FLEXERIL) TAB PO SCH ×2 (08:39→20:30)
[2021-06-08] MEDS: DRONEDARONE TABLET 400 MG TABLET PO SCH ×2 (08:39→20:30)
[2021-06-08] MEDS: APIXABAN 5 MG (ELIQUIS) TABLET PO SCH ×2 (08:39→20:30)
[2021-06-08] MEDS: FENOFIBRATE 134 MG (LOFIBRA) CAPSULE PO SCH (08:39)
[2021-06-08] MEDS: CLOPIDOGREL 75 MG (PLAVIX) TABLET PO SCH (08:39)
[2021-06-08] MEDS: dilTIAZem120 MG (CARDIZEM CD) CAP PO SCH (08:39)
[2021-06-08] MEDS: FUROSEMIDE 40 MG (LASIX) TAB PO SCH (08:40)
[2021-06-08] MEDS: meTOproloL SUCCINATE 50 MG (TOPROL XL) TAB PO SCH (08:40)
[2021-06-08] MEDS: inSUlin ASPART (NovoLOG) 1 UNIT/0.01 ML (CHARGE PER UNIT) SQ SCH ×3 (08:41→18:18)
[2021-06-08] MEDS: FLUTICASONE NASAL SPRAY (FLONASE) 16 GM BTL NS SCH (08:46)
[2021-06-08] MEDS ORDERED: guaiFENesin (MUCINEX) 600 MG TAB PO ONE (11:45)
[2021-06-08 11:56] VITALS: BP 131/81
[2021-06-08 15:30] VITALS: BP 106/64
--- NOTE | 2021-06-08 15:33 | Progress Note - Cardiology ---
Cardiology SOAP Progress Note Subjective: Gen weakness and malaise present Shortness of breath and feeling of abd distention have improved No cp or palp or syncope No n/v/d Objective: I&O/Vital Signs 06/08/21 06/08/21 06/08/21 06/08/21 06:54 07:00 07:54 08:15 Temp 36.6 Pulse 80 81 Resp 20 B/P (MAP) 121/82 (95) Pulse Ox 96 95 O2 Delivery Room Air Room Air Room Air O2 Flow Rate 0.00 06/08/21 06/08/21 06/08/21 10:35 11:56 14:35 Temp 36.7 Pulse 86 Resp 22 B/P (MAP) 131/81 (98) Pulse Ox 94 96 95 O2 Delivery Room Air Room Air Room Air O2 Flow Rate 0.00 0.00 06/08/21 00:00 Intake Total 2080 ml Output Total 1000 ml Balance 1080 ml Constitutional: AAO x 3, well-developed, well-nourished Respiratory: No accessory muscle use, No respiratory distress; chest expansion is symmetric, chest is bilaterally symmetric, rhonchi (scattered rhonchi) Cardiovascular: regular rate-rhythm; No JVD; S1 and S2 Gastrointestional: soft, round, distended, hernia (umbilical), audible bowel sounds Extremities: other (mod bilat LE swelling) Neurologic/Psychiatric: grossly intact (moves all extremities) Skin: No rash on exposed areas, No ulcerations on exposed areas Results/Procedures: Labs Laboratory Tests 06/07/21 16:05: Glucometer 219H 06/07/21 20:06: Glucometer 130H 06/08/21 05:36: Glucometer 188H 06/08/21 05:45: White Blood Count 8.0, Red Blood Count 4.76, Hemoglobin 10.9L, Hematocrit 36L, Mean Corpuscular Volume 76L, Mean Corpuscular Hemoglobin 23L, Mean Corpuscular Hemoglobin Concent 30L, Red Cell Distribution Width 16.2H, Platelet Count 296, Mean Platelet Volume 10.5, Immature Granulocyte % (Auto) 1, Neutrophils (%) (Auto) 61, Lymphocytes (%) (Auto) 22, Monocytes (%) (Auto) 11, Eosinophils (%) (Auto) 5, Basophils (%) (Auto) 1, Neutrophils # (Auto) 4.8, Lymphocytes # (Auto) 1.8, Monocytes # (Auto) 0.9, Eosinophils # (Auto) 0.4H, Basophils # (Auto) 0.1, Immature Granulocyte # (Auto) 0.1, Sodium Level 136, Potassium Level 4.0, Chloride Level 101, Carbon Dioxide Level 22, Anion Gap 13, Blood Urea Nitrogen 12, Creatinine 1.10, Estimat Glomerular Filtration Rate 65, BUN/Creatinine Ratio 11, Glucose Level 186H, Calcium Level 9.3, Corrected Calcium 9.6, Total Bilirubin 0.8, Aspartate Amino Transf (AST/SGOT) 36H, Alanine Aminotransferase (ALT/SGPT) 28, Alkaline Phosphatase 58, Total Protein 6.4, Albumin 3.6 06/08/21 11:07: Glucometer 280H Laboratory Tests 06/07/21 05:42 06/08/21 05:45 A/P: Assessment: Abdominal bloating of undetermined etiology - Medical services managing P. Atrial fibrillation - Eliquis for stroke prophylaxis - Failed cardioversion by Dr. Esparza on 01-15-21 - DAREN prior to cardioversion on 01-15-[address] Esparza showed dilated LA. No left atrial appendage clot seen. LVEF 50%. Mild MR. - H/o cardioversion on 02-05-21 at [facility] by Dr. Cornejo - currently SR on EKG of 06-05-21 H/O multiple TIA's in the past Coronary artery disease - history of multiple interventions in the past, reporting that he had multiple stents done at [facility] in the remote past - details unknown - Plavix and ASA Abdominal aortic aneurysm - workup showed that the aneurysm measured 5 cm in the infrarenal abdominal aorta, he has bilateral iliac aneurysm - s/p AAA repair done by Dr. Urena in December 2020 - Per CT of the abdomen on 06-05-21: there is an endoleak. Due to the phase of contrast, the source of the leak is difficult to identify. Hypertension - controlled Hyperlipidemia - statin tx Diabetes mellitus - followed and managed by primary care physician History of sleep apnea - was intolerant to C Pap machine Obesity - BMI 38, we discussed weight loss. Tobaccoism - stopped smoking 2 years ago COPD Plan: Continue oral diuretics Continue Eliquis d/t PAF. Stop ASA, but continue Plavix d/t known h/o CAD; having him on all 3 agents increases his risk of bleeding Monitor lab closely Replace electrolytes as indicated Ok to d/c from cardiac standpoint ARLEN LIZARRAGA MD FACP [facility] CCDS Jun 08, 2021 15:33
[2021-06-08 20:00] VITALS: BP 139/65
[2021-06-08] MEDS: guaiFENesin (MUCINEX) 600 MG TAB PO SCH (20:30)
[2021-06-08] MEDS: MONTELUKAST 10 MG (SINGULAIR) TAB PO SCH (20:30)
[2021-06-09] VITALS (7 sets, daily range): BP systolic 113–163; BP diastolic 57–82
[2021-06-09] MEDS: CATHETER FLUSH 10 ML SYR IV SCH ×4 (00:30→22:16)
[2021-06-09 05:52] LABS: BASOPHILS % (AUTO) 1 % (0-10); EOSINOPHILS # (AUTO) 0.3 10^3/uL (0.0-0.3); EOSINOPHILS % (AUTO) 3 % (0-10); HEMATOCRIT 35 % (40-54); HEMOGLOBIN 10.6 g/dL (13.3-17.7); LYMPHOCYTES # (AUTO) 1.9 10^3/uL (1.0-4.0); LYMPHOCYTES % (AUTO) 24 % (12-44); MEAN CORPUSCULAR HEMOGLOBIN 23 pg (25-34); MEAN CORPUSCULAR HGB CONC 30 g/dL (32-36); MEAN CORPUSCULAR VOLUME 76 fL (80-99); MEAN PLATELET VOLUME 10.9 fL (9.0-12.2); MONOCYTES # (AUTO) 0.9 10^3/uL (0.0-1.0); MONOCYTES % (AUTO) 12 % (0-12); NEUTROPHILS # (AUTO) 4.7 10^3/uL (1.8-7.8); NEUTROPHILS % (AUTO) 60 % (42-75); PLATELET COUNT 296 10^3/uL (130-400); WHITE BLOOD COUNT 7.8 10^3/uL (4.3-11.0)
[2021-06-09 06:02] LABS: ALBUMIN 3.5 GM/DL (3.2-4.5)
[2021-06-09 06:03] LABS: POTASSIUM 3.8 MMOL/L (3.6-5.0)
[2021-06-09 06:04] LABS: CALCIUM 9.4 MG/DL (8.5-10.1)
[2021-06-09 06:05] LABS: TOTAL PROTEIN 6.4 GM/DL (6.4-8.2)
[2021-06-09 06:07] LABS: BILIRUBIN,TOTAL 0.5 MG/DL (0.1-1.0)
[2021-06-09 06:09] LABS: CREATININE SERUM 1.28 MG/DL (0.60-1.30)
[2021-06-09] MEDS: KCL 20 MEQ TAB (K-DUR) PO SCH (06:17)
[2021-06-09] MEDS: inSUlin ASPART (NovoLOG) 1 UNIT/0.01 ML (CHARGE PER UNIT) SC SCH ×4 (06:17→21:50)
[2021-06-09] MEDS: PANTOPRAZOLE 20 MG TABLET (PROTONIX) PO SCH (06:17)
[2021-06-09] MEDS: RT-ALBUTEROL SULF 2.5 MG/3 ML PRE-MIX VIAL INH SCH ×4 (07:15→20:52)
--- NOTE | 2021-06-09 08:41 | Cardiology Progress Note ---
Subjective Date Seen by Provider: Jun 09, 2021 Time Seen by Provider: 08:51 Subjective/Events-last exam Patient is sitting up in bed, c/o dyspnea and nonproductive cough. Denies any chest pain Review of Systems General: No Chills, No Night Sweats; Fatigue; No Malaise, No Appetite, No Other HEENT: No Head Aches, No Visual Changes, No Eye Pain, No Ear Pain, No Dysphasi a, No Sinus Congestion, No Post Nasal Drip, No Sore Throat, No Other Pulmonary: Dyspnea; No Cough, No Pleuritic Chest Pain, No Other Cardiovascular: Edema; No: Chest Pain, Palpitations, Orthopnea, Paroxysmal Noc. Dyspnea, Lt Headedness, Other Objective-Cardiology Exam Last Set of Vital Signs Vital Signs 06/05/21 06/09/21 06/09/21 22:15 08:00 11:44 Temp 36.1 Pulse 89 Resp 24 B/P (MAP) 131/82 (98) Pulse Ox 93 O2 Delivery Room Air O2 Flow Rate 0.00 FiO2 21 I&O Intake and Output 06/09/21 00:00 Intake Total 4883.25 ml Output Total 6340 ml Balance -1456.75 ml Intake Oral 4607 ml IV Total 276.25 ml Output Urine Total 6340 ml # Voids 1 General: Alert, Oriented X3, Cooperative HEENT: Atraumatic, PERRLA Neck: Supple, No JVD Lungs: Other (bilateral rhonchi, wheezing ) Heart: Regular Rate, Normal S1, Normal S2 Abdomen: Normal Bowel Sounds Extremities: No Clubbing, No Cyanosis, Other (+1 edema BLE) Skin: No Rashes, No Breakdown Neuro: Normal Gait, Normal Speech Psych/Mental Status: Mental Status NL, Mood NL Results Lab Laboratory Tests 06/09/21 05:15 A/P-Cardiology Admission Diagnosis PAF Dyspnea HTP HTN Assessment/Plan Increased dyspnea, nonproductive cough, having wheezing and rhonchi on physical exam, questionable bronchitis vs pneumonia, I will evaluate CXR. Recommend starting antibiotic for possible bronchitis Paroxysmal atrial fibrillation, h/o failed cardioversion January 2021, had another cardioversion on 02/05/[address] Cornejo at [facility], currently SR. Maintained on EliquMilady ramon CD, Multaq. [id number] score of 6, yearly risk of stroke without oral anticoagulation is over 6 percent, Maintained on Eliquis. Cor pulmonale, 2D Echo done 06/06/21 showing EF 55-60%, PA 20-25mmHg, I believe it to be an underestimation of the PA pressure. Continue to diurese. Coronary artery disease, history of multiple interventions in the past, reporting that he had multiple stents done at [facility] in the remote past and he had under deployed stent. Currently asymptomatic. Continue to monitor, planning to evaluate stress test as an outpatient. Abdominal aortic aneurysm, workup showed that the aneurysm measured 5 cm in the infrarenal abdominal aorta, he has bilateral iliac aneurysm, s/p AAA repair done by Dr. Urena in December 2020. CT abdomen and pelvis done 06/05/21 showing there is an endoleak. Due to the phase of contrast, the source of the leak is difficult to identify. Hypertension, controlled, continue to monitor. Hyperlipidemia, hypertriglyceridemia, maintained on fenofibrate and rosuvastatin, continue to monitor as outpatient. Diabetes mellitus, followed and managed by primary care physician COPD/IVONNE, was intolerant to C Pap machine History of multiple TIAs/CVA, maintained on Plavix and Eliquis Obesity, BMI 38, we discussed weight loss. Tobaccoism, stopped smoking 2 years ago, encouraged to continue with smoking cessation. Supervisory-Addendum Brief Supervisory Addendum Participated in pt care: history, MDM, physical Personally performed: exam, history, MDM Care discussed with: GILMA Results interpretation: Verified all documentation Notes: Patient was seen and evaluated with Jessica, examination performed, management plan was discussed, agree with the current scribed note, I made few changes to the note using Italic font. Patient was seen at bedside sitting comfortably Complaining of cough and mild shortness of breath Mild pedal edema We will give 1 dose of additional Lasix IV Chest x-ray was reviewed showing no acute infiltrate Probably acute exacerbation of COPD with bronchitis. Recommending empiric antibiotic Management was discussed with Dr. Rodolfo CERVANTES,JESSICA DILLARD Jun 09, 2021 08:41 TONIO LOPEZ MD Jun 09, 2021 13:18
[2021-06-09] MEDS ORDERED: FUROSEMIDE 40 MG/4 ML INJ (LASIX) IVP ONE (09:00)
[2021-06-09] MEDS: inSUlin ASPART (NovoLOG) 1 UNIT/0.01 ML (CHARGE PER UNIT) SQ SCH ×3 (09:22→18:39)
[2021-06-09] MEDS: DOXYCYCLINE INJECTION 100 MG in NS (IVPB) 100 ML IV SCH ×2 (09:30→20:21)
[2021-06-09] MEDS ORDERED: methylPREDNISolone 40 MG/ML (Solu-MEDROL) VIAL IV ONE (09:30)
[2021-06-09] MEDS: CYCLOBENZAPRINE 10 MG (FLEXERIL) TAB PO SCH ×2 (09:37→20:20)
[2021-06-09] MEDS: meTOproloL SUCCINATE 50 MG (TOPROL XL) TAB PO SCH (09:37)
[2021-06-09] MEDS: CLOPIDOGREL 75 MG (PLAVIX) TABLET PO SCH (09:37)
[2021-06-09] MEDS: dilTIAZem120 MG (CARDIZEM CD) CAP PO SCH (09:37)
[2021-06-09] MEDS: APIXABAN 5 MG (ELIQUIS) TABLET PO SCH ×2 (09:37→20:20)
[2021-06-09] MEDS: ROSUVASTATIN 20 MG (CRESTOR) TABLET PO SCH (09:37)
[2021-06-09] MEDS: FUROSEMIDE 40 MG (LASIX) TAB PO SCH (09:37)
[2021-06-09] MEDS: FENOFIBRATE 134 MG (LOFIBRA) CAPSULE PO SCH (09:38)
[2021-06-09] MEDS: DRONEDARONE TABLET 400 MG TABLET PO SCH ×2 (09:38→20:20)
[2021-06-09] MEDS: guaiFENesin (MUCINEX) 600 MG TAB PO SCH ×2 (09:38→20:20)
[2021-06-09] MEDS: PREGABALIN 100 MG (LYRICA) CAPSULE PO SCH ×3 (09:38→20:20)
[2021-06-09] MEDS: FLUTICASONE NASAL SPRAY (FLONASE) 16 GM BTL NS SCH (09:40)
--- NOTE | 2021-06-09 09:41 | Progress Note - Hospitalist ---
Subjective HPI/CC On Admission Date Seen by Provider: Jun 09, 2021 Time Seen by Provider: 11:00 Chief complaint: Shortness of breath History of present illness: This is a 76-year-old white male past medical history of atrial fibrillation who presents with recurrent congestive heart failure volume overload. Currently he reports feeling much better. Echocardiogram ordered along with cardiology consult. Pulmonary consult will also be added due to suspicion of untreated sleep apnea. BMI 39. Home meds will be restarted. Hep-Lock and IV fluid. Subjective/Events-last exam Pt doing okay Ambulatory Wheezing and SOB during activity Pulmonary evaluated him to have pulmonary source of SOB so nebulizer treatments ordered Doxycycline ordered, 100mg IV twice daily Conferred with Dr. Esparza Review of Systems General: Fatigue, Malaise Objective Exam Vital Signs Vital Signs Date Time Temp Pulse Resp B/P (MAP) Pulse Ox O2 Delivery O2 Flow Rate FiO2 06/10/21 04:16 36.8 85 18 115/60 (78) 93 Nasal Cannula 2.00 06/05/21 22:15 21 Capillary Refill : Less Than 3 Seconds General Appearance: No Apparent Distress, WD/WN, Chronically ill, Obese Respiratory: No Accessory Muscle Use, No Respiratory Distress, Decreased Breath Sounds, Rales, Wheezing Cardiovascular: Regular Rate, Rhythm Neurologic/Psychiatric: Alert, Oriented x3, No Motor/Sensory Deficits, Normal Mood/Affect Results/Procedures Lab Laboratory Tests 06/09/21 05:15 Patient resulted labs reviewed. Assessment/Plan Assessment and Plan Assess & Plan/Chief Complaint Assessment: Acute volume overload Acute bronchitis with suspicion of obesity hypoventilation syndrome History of congestive heart failure Atrial fibrillation Hypertension Diabetes mellitus Suspicion for IVONNE undiagnosed Elevated BMI Severe iron deficiency with microcytosis Vitamin B12 deficiency Plan: Supportive care Cardiology consult Pulmonary consult Home meds 06/07/2021: Supportive care Appreciate cardiology Oxygen supplementation Change albuterol to MDI IV iron B12 supplement 06/08/2021: Iron supplement Vitamin B12 Overnight O2 study 06/09/2021: Appreciate pulmonary Appreciate cardiology IV antibiotics Diagnosis/Problems Diagnosis/Problems (1) Volume overload Status: Acute Qualifiers: Hypervolemia type: unspecified Qualified Codes: E87.70 - Fluid overload, unspecified (2) Afib (3) Orthopnea Status: Acute ANTHONY BRANCH DO Jun 09, 2021 09:41
--- NOTE | 2021-06-09 09:54 | Diagnostic Imaging Report ---
INDICATION: Dyspnea. Comparison made with prior examination of 06/05/2021. FINDINGS: The heart size, mediastinal configuration, and pulmonary vascularity are within normal limits. There is no pleural effusion, pneumothorax, or pneumonia. The osseous structures are unremarkable. IMPRESSION: No acute cardiopulmonary abnormality. Dictated by: Dictated on workstation # [id number]
--- NOTE | 2021-06-09 10:49 | Physical Therapy Evaluation ---
PT Evaluation-General Medical Diagnosis Admission Date Jun 05, 2021 at 17:27 Medical Diagnosis: Volume overload Onset Date: Jun 05, 2021 Therapy Diagnosis Therapy Diagnosis: debility/weakness Precautions Precautions/Isolations: Fall Prevention, Standard Precautions Referral Physician: Rodolfo Reason for Referral: Evaluation/Treatment Medical History Pertinent Medical History: Atrial Fib, CAD, COPD, DM, Heart Failure, HTN Additional Medical History AAA/morbid obesity Current History ER secondary to bloating/constipation Reviewed History: Yes Social History Home: Single Level Current Living Status: Alone Prior Prior Level of Function SCALE: Activities may be completed with or without assistive devices. 2-Deiixrhuog-mnexccl completes the activity by him/herself with no assistance from a helper. 5-Set-up or Clean-up Assistance-helper sets up or cleans up; patient completes activity. [place] assists only prior to or following the activity. 4-Supervision or Touching Assistance-helper provides verbal cues and/or touching/steadying and/or contact guard assistance as patient completes activity. Assistance may be provided throughout the activity or intermittently. 3-Partial/Moderate Assistance-helper does LESS THAN HALF the effort. [place] lifts, holds or supports trunk or limbs, but provides less than half the effort. 2-Substantial/Maximal Assistance-helper does MORE THAN HALF the effort. [place] lifts or holds trunk or limbs and provides more than half the effort. 6-Plcqwpgry-jylrck does ALL the effort. Patient does none of the effort to complete the activity. Or, the assistance of 2 or more helpers is required for the patient to complete the activity. If activity was not attempted, code reason: 7-Patient Refused. 9-Not Applicable-not attempted and the patient did not perform the activity before the current illness, exacerbation or injury. 10-Not Attempted due to Environmental Limitations-(lack of equipment, weather restraints, etc.). 88-Not Attempted due to Medical Conditions or Safety Concerns. Bed Mobility: 6 Transfers (B,C,W/C): 6 Gait: 6 Stairs: 6 Indoor Mobility (Ambulation): Independent Stairs: Independent Prior Devices Use: None PT Evaluation-Current Subjective Patient agrees to PT. Objective Patient Orientation: Normal For Age ROM/Strength ROM Lower Extremities bilateral LE WFL Strength Lower Extremities 4/5 grossly bilateral LE Integumentary/Posture Bowel Incontinence: No Bladder Incontinence: No Posture WFL Neuromuscular (Tone, Coordination, Reflexes) grossly intact Sensory Vision: Wears Glasses Hearing: Functional Transfers Sit to Lying (QC): 6 Lying to Sitting/Side of Bed(Q: 6 Sit to Stand (QC): 6 Gait Does the Patient Walk?: Yes Mode of Locomotion: Walk Anticipated Mode of Locomotion: Walk Walk 10 feet (QC): 6 Walk 50 ft with 2 Turns(QC): 6 Walk 150 ft (QC): 6 Distance: 200' Gait Assistive Device: None Comments/Gait Description safe and functional with no deviation Balance Sitting Static: Normal Sitting Dynamic: Normal Standing Static: Normal Standing Dynamic: Normal Picking up an Object (QC): 6 Treatment SAO2 92% RA with activity Assessment/Needs 76 y.o. male, is currently at [facility] with all gross motor skills and does not require skilled PT intervention. Rehab Potential: Fair PT Plan Treatment/Plan Treatment Plan: Discontinue PT, goals met Treatment Duration: Jun 09, 2021 Frequency: 1 time per week Estimated Hrs Per Day: .25 hour per day Patient and/or Family Agrees t: Yes Time/GCodes Time In: 954 Time Out: 1010 Total Billed Treatment Time: 16 Total Billed Treatment 1 visit EVModC 16 min SHAWANDA SPIVEY PT Jun 09, 2021 10:49
--- NOTE | 2021-06-09 11:21 | Pulmonary Consultation ---
History of Present Illness History of Present Illness Date Seen by Provider: Jun 09, 2021 Time Seen by Provider: 11:00 Date of Admission Patient acknowledged, consented, and participated in this virtual visit which was conducted using real time audio/video. Thank you for asking us to see this patient for respiratory insufficiency and distress. HPC: Recent events: Now c/o increased wheeze, SOB. PMH: COPD, CHF, DM, Afib, HTN., CAD. SH: smoking history Y FH: Non-contributory ROS:as in HPI. PE: Mild distress. VSS RR O2 sat 92-93% on RA HEENT: No obvious masses, adenopathy or JVD. Chest: wheezes and coarse breath sounds. CV: S1 S2 No murmur or added sounds. Abd: Non-tender. Bowel sounds . : Unremarkable. Lindsay N. [employer] HEAD/psychiatric: Alert and oriented, grossly intact. No obvious focal findings. Extremities: 1-2+ edema. Capillary refill < 3 seconds. Skin: unremarkable. Results: Elevated BG 261. Decreased Hb 10.6. CXR hyperinflated w clear luong. A/P: Respiratory insufficiency/distress: Cont medrol and Lasix. Add Duonebs qid and PRN q2 hours. Available chart/ vitals / labs /images reviewed. Video assessment done using teleICU camera, rest of exam as per RN. Monitor for increasing oxygenation needs and/or need for ICU transfer. Discussed with RN Kamari and Dr. Reynolds. Asked RN to reach out to eICU if any questions or concerns later. Time spent with patient/coordination of care with other health professionals (mins): 24 Allergies and Home Medications Allergies Coded Allergies: lisinopril (Verified Allergy, Mild, 01/15/21) MUSCLE ACHES losartan (Verified Allergy, Mild, Rash, 01/15/21) lovastatin (Verified Allergy, Mild, 01/15/21) MUSCLE ACHES rosiglitazone (Verified Allergy, Mild, Hives, 01/15/21) umeclidinium (Verified Allergy, Mild, Rash, 01/15/21) Home Medications Albuterol Sulfate 1 Puff Puff, 2 PUFF IH Q4H PRN for SHORTNESS OF BREATH, (Reported) Apixaban 5 Mg Tablet, 5 MG PO BID, (Reported) Clopidogrel Bisulfate 75 Mg Tablet, 75 MG PO DAILY, (Reported) Diltiazem HCl 120 Mg Cap.er.24h, 120 MG PO DAILY, (Reported) Dronedarone HCl 400 Mg Tablet, 400 MG PO BID, (Reported) Fenofibrate Nanocrystallized 145 Mg Tablet, 145 MG PO DAILY, (Reported) Fluticasone Propionate 16 Gm [place].susp, 2 SPRAYS NSEACH DAILY, (Reported) Furosemide 40 Mg Tablet, 40 MG PO BID PRN for FLUID RETENTION, (Reported) Hydrochlorothiazide 12.5 Mg Tablet, 12.5 MG PO DAILY PRN for FLUID RETENTION, (Reported) Hydrocodone/Acetaminophen 1 Each Tablet, 1 EA PO Q6H PRN for PAIN-MODERATE (5- 7), (Reported) Insulin Aspart 300 Units/3 Ml Solution, 25 UNITS SQ TIDWM, (Reported) Insulin Glargine,Hum.rec.anlog 100 Unit/1 Ml Insuln.pen, 60 UNIT SQ BID, (Reported) Meloxicam 15 Mg Tablet, 15 MG PO DAILY, (Reported) Metoprolol Succinate 50 Mg Tab.er.24h, 50 MG PO DAILY, (Reported) Montelukast Sodium 10 Mg Tablet, 10 MG PO HS, (Reported) Omeprazole 20 Mg Capsule.dr, 20 MG PO DAILY, (Reported) Pregabalin 100 Mg Capsule, 100 MG PO TID, (Reported) Rosuvastatin Calcium 40 Mg Tablet, 40 MG PO DAILY, (Reported) Spironolactone 25 Mg Tablet, 25 MG PO DAILY PRN for FLUID RETENTION, (Reported) Past Medical/Social/Family Hx Patient Social History Marrital Status: single Employed/Student: retired Tobacco Use?: No Smoking Status: Former Smoker Smokeless type used: Chew Smokeless Tobacco Frequency: Light User Use of E-Cig and/or Vaping dev: No Substance use?: No Alcohol Use?: Yes Alcohol type: Hard Liquor Alcohol Frequency: Rarely Pt stated abuse/neglect: No Immunizations Up To Date Influenza Vaccine Up-to-Date: No; Not Current First/Initial COVID19 Vaccinat: DECEMBER 2020 Second COVID19 Vaccination Moi: JANUARY 2021 Tetanus Booster (TDap): More Than 5 Years Hepatitis A: No Hepatitis B: No TB Skin Test: None Current Status Advance Directives: No Communicates: Verbally Primary Language: Surinamese Preferred Spoken Language: Surinamese Is interpretation needed?: Yes Sensory deficits: Vision impairment, Hearing impairment Implanted or Applied Medical D: Stents Review of Systems Constitutional: see HPI EENTM: see HPI Respiratory: see HPI Gastrointestinal: see HPI Genitourinary: see HPI Musculoskeletal: see HPI Skin: see HPI Psychiatric/Neurological: See HPI All Other Systems Reviewed Negative Unless Noted: Yes Sepsis Event Evaluation Height, Weight, BMI Height: '" Weight: lbs. oz. kg; 39.12 BMI Method: Exam Exam Patient acknowledged, consented, and participated in this virtual visit which was conducted using real time audio/video Vital Signs Date Time Temp Pulse Resp B/P (MAP) Pulse Ox O2 Delivery O2 Flow Rate FiO2 06/09/21 07:20 96 Room Air 06/09/21 07:16 35.9 77 24 163/70 (101) 96 Room Air 06/09/21 03:24 37.2 76 18 121/61 (81) 90 Room Air 06/09/21 00:17 36.8 83 20 113/57 (75) 91 Room Air 06/08/21 20:30 Room Air 06/08/21 20:00 36.2 67 22 139/65 (89) 90 Room Air 06/08/21 15:30 36.7 76 20 106/64 (78) 92 Room Air 06/08/21 14:35 95 Room Air 0.00 06/08/21 11:56 36.7 86 22 131/81 (98) 96 Room Air I & O 06/09/21 07:00 Intake Total 4483.25 ml Output Total 6440 ml Balance -1956.75 ml Height & Weight Height: '" Weight: lbs. oz. kg; 39.12 BMI Method: General Appearance: No Apparent Distress, WD/WN, Chronically ill, Obese HEENT: PERRL/EOMI, Normal ENT Inspection, Pharynx Normal, Moist Mucous Membran es Neck: Full Range of Motion, Normal Inspection, Non Tender Respiratory: No Accessory Muscle Use, No Respiratory Distress, Decreased Breath Sounds Cardiovascular: Regular Rate, Rhythm Capillary Refill: Less Than 3 Seconds Peripheral Pulses: 1+ Dorsalis Pedis (R), 1+ Left Dors-Pedis (L) Gastrointestinal: normal bowel sounds, soft; No distended, No guarding, No rebound; tenderness Extremity: Normal Capillary Refill, Normal Inspection, Normal Range of Motion, Non Tender, No Calf Tenderness, No Pedal Edema Neurologic/Psychiatric: Alert, Oriented x3 Skin: Normal Color, Warm/Dry Lymphatic: No Adenopathy Results Lab Laboratory Tests 06/08/21 05:45 06/09/21 05:15 Assessment/Plan Assessment/Plan See free text Critical Care: Critically Ill Patient LISSA DELGADILLO MD Jun 09, 2021 11:21
--- NOTE | 2021-06-09 11:39 | Occ Therapy Progress Note ---
Therapy Progress Note OT evaluation received and chart reviewed. OT visited with pt who indicates he is at his PLOF with ADLs. He has been up to the bathroom independently, and was IND with functional mobility with PT 200' no AD. Pt states no concerns with completing ADLS upon discharge. No skilled OT services indicated at this time. D/C from OT, as pt is IND with ADLs and at PLOF. 1, visit 1135 GISELL PICHARDO OT Jun 09, 2021 11:39
[2021-06-09] MEDS ORDERED: RT-ALBUTEROL SULF 2.5 MG/3 ML PRE-MIX VIAL INH PRN (17:15)
[2021-06-09] MEDS: MONTELUKAST 10 MG (SINGULAIR) TAB PO SCH (20:20)
[2021-06-10 04:16] VITALS: BP 115/60
[2021-06-10 05:36] LABS: ABG BASE EXCESS 2.1 MMOL/L (-2.5-2.5); ABG OXYGEN SATURATION 97 % (94-100); ABG PCO2 42 MMHG (35-45); ABG PH 7.42 (7.37-7.43); ABG PO2 87 MMHG (79-93); ABG TCO2 27.5 MMOL/L (21.0-31.0); ALLENS TEST YES-POS; INSPIRED O2 2L; VENTILATOR NO
[2021-06-10] MEDS: CATHETER FLUSH 10 ML SYR IV SCH ×2 (05:39→12:57)
[2021-06-10 06:08] LABS: BASOPHILS # (AUTO) 0.1 10^3/uL (0.0-0.1); BASOPHILS % (AUTO) 0 % (0-10); EOSINOPHILS % (AUTO) 0 % (0-10); HEMATOCRIT 34 % (40-54); HEMOGLOBIN 10.4 g/dL (13.3-17.7); LYMPHOCYTES # (AUTO) 2.2 10^3/uL (1.0-4.0); LYMPHOCYTES % (AUTO) 17 % (12-44); MEAN CORPUSCULAR HEMOGLOBIN 23 pg (25-34); MEAN CORPUSCULAR HGB CONC 30 g/dL (32-36); MEAN CORPUSCULAR VOLUME 76 fL (80-99); MEAN PLATELET VOLUME 10.8 fL (9.0-12.2); MONOCYTES # (AUTO) 1.3 10^3/uL (0.0-1.0); MONOCYTES % (AUTO) 10 % (0-12); NEUTROPHILS # (AUTO) 9.6 10^3/uL (1.8-7.8); NEUTROPHILS % (AUTO) 72 % (42-75); PLATELET COUNT 326 10^3/uL (130-400); WHITE BLOOD COUNT 13.3 10^3/uL (4.3-11.0)
[2021-06-10] MEDS: KCL 20 MEQ TAB (K-DUR) PO SCH (06:11)
[2021-06-10] MEDS: PANTOPRAZOLE 20 MG TABLET (PROTONIX) PO SCH (06:11)
[2021-06-10] MEDS: inSUlin ASPART (NovoLOG) 1 UNIT/0.01 ML (CHARGE PER UNIT) SC SCH ×2 (06:11→11:37)
[2021-06-10 06:27] LABS: ALBUMIN 3.5 GM/DL (3.2-4.5); POTASSIUM 3.8 MMOL/L (3.6-5.0)
[2021-06-10 06:28] LABS: CALCIUM 9.3 MG/DL (8.5-10.1)
[2021-06-10 06:30] LABS: TOTAL PROTEIN 6.5 GM/DL (6.4-8.2)
[2021-06-10 06:31] LABS: BILIRUBIN,TOTAL 0.4 MG/DL (0.1-1.0)
[2021-06-10 06:33] LABS: CREATININE SERUM 1.18 MG/DL (0.60-1.30)
[2021-06-10] MEDS: RT-ALBUTEROL SULF 2.5 MG/3 ML PRE-MIX VIAL INH SCH ×2 (06:53→10:47)
[2021-06-10] MEDS ORDERED: methylPREDNISolone 40 MG/ML (Solu-MEDROL) VIAL IV ONE (07:00)
[2021-06-10] MEDS ORDERED: RT--FLUTICASONE/SALMETEROL 113-14 (AIRDUO RespiCLICK) IH SCH (08:00)
--- NOTE | 2021-06-10 08:35 | Cardiology Progress Note ---
Subjective Date Seen by Provider: Jun 10, 2021 Time Seen by Provider: 08:33 Subjective/Events-last exam Sitting up in bed, reports productive cough, denies any chest pain or increased dyspnea. Review of Systems General: No Chills, No Night Sweats; Fatigue; No Malaise, No Appetite, No Other HEENT: No Head Aches, No Visual Changes, No Eye Pain, No Ear Pain, No Dysphasi a, No Sinus Congestion, No Post Nasal Drip, No Sore Throat, No Other Pulmonary: Dyspnea, Cough; No Pleuritic Chest Pain, No Other Cardiovascular: No: Chest Pain, Palpitations, Orthopnea, Paroxysmal Noc. Dyspnea, Edema, Lt Headedness, Other Objective-Cardiology Exam Last Set of Vital Signs Vital Signs 06/05/21 06/10/21 22:15 08:41 Temp 36.3 Pulse 81 Resp 18 B/P (MAP) 125/68 (87) Pulse Ox 92 O2 Delivery Nasal Cannula O2 Flow Rate 2.00 FiO2 21 I&O Intake and Output 06/10/21 00:00 Intake Total 3392 ml Output Total 5975 ml Balance -2583 ml Intake Oral 3392 ml Output Urine Total 5975 ml # Voids 2 # Bowel Movements 2 General: Alert, Oriented X3, Cooperative HEENT: Atraumatic, PERRLA Neck: Supple, No JVD Lungs: Other (bilateral rhonchi, wheezing ) Heart: Regular Rate, Normal S1, Normal S2 Abdomen: Normal Bowel Sounds Extremities: No Clubbing, No Cyanosis, Other (+1 edema BLE) Skin: No Rashes, No Breakdown Neuro: Normal Gait, Normal Speech Psych/Mental Status: Mental Status NL, Mood NL Results Lab Laboratory Tests 06/10/21 05:40 A/P-Cardiology Admission Diagnosis PAF Dyspnea HTP HTN Assessment/Plan Acute exacerbation of COPD, bronchitis with Dyspnea, started on Medrol and doxycycline, managed by medical team Paroxysmal atrial fibrillation, h/o failed cardioversion January 2021, had another cardioversion on 02/05/[address] Cornejo at [facility], currently SR. Maintained on Eliquis, Cardizem CD, Multaq. [id number] score of 6, yearly risk of stroke without oral anticoagulation is over 6 percent, Maintained on Eliquis. Cor pulmonale, 2D Echo done 06/06/21 showing EF 55-60%, PA 20-25mmHg, I believe it to be an underestimation of the PA pressure. Continue to diurese. Coronary artery disease, history of multiple interventions in the past, reporting that he had multiple stents done at [facility] in the remote past and he had under deployed stent. Currently asymptomatic. Continue to monitor, planning to evaluate stress test as an outpatient. Abdominal aortic aneurysm, workup showed that the aneurysm measured 5 cm in the infrarenal abdominal aorta, he has bilateral iliac aneurysm, s/p AAA repair done by Dr. Urena in December 2020. CT abdomen and pelvis done 06/05/21 showing there is an endoleak. Due to the phase of contrast, the source of the leak is difficult to identify. Hypertension, controlled, continue to monitor. Hyperlipidemia, hypertriglyceridemia, maintained on fenofibrate and rosuvastatin, continue to monitor as outpatient. Diabetes mellitus, followed and managed by primary care physician COPD/IVONNE, was intolerant to C Pap machine History of multiple TIAs/CVA, maintained on Plavix and Eliquis Obesity, BMI 38, we discussed weight loss. Tobaccoism, stopped smoking 2 years ago, encouraged to continue with smoking cessation. Supervisory-Addendum Brief Supervisory Addendum Participated in pt care: history, MDM, physical Personally performed: exam, history, MDM Care discussed with: GILMA Results interpretation: Verified all documentation Notes: Patient was seen and evaluated with Jessica, examination performed, management plan was discussed, agree with the current scribed note, I made few changes to the note using Italic font Patient was seen at bedside, laying down comfortably, still having cough and shortness of breath Started on Medrol and doxycycline Continue to monitor heart rate and blood pressure JESSICA CERVANTES Jun 10, 2021 08:35 TONIO LOPEZ MD Jun 10, 2021 08:51
[2021-06-10 08:41] VITALS: BP 125/68
[2021-06-10] MEDS: FUROSEMIDE 40 MG (LASIX) TAB PO SCH (08:43)
[2021-06-10] MEDS: CYCLOBENZAPRINE 10 MG (FLEXERIL) TAB PO SCH (08:43)
[2021-06-10] MEDS: meTOproloL SUCCINATE 50 MG (TOPROL XL) TAB PO SCH (08:43)
[2021-06-10] MEDS: DRONEDARONE TABLET 400 MG TABLET PO SCH (08:43)
[2021-06-10] MEDS: ROSUVASTATIN 20 MG (CRESTOR) TABLET PO SCH (08:44)
[2021-06-10] MEDS: PREGABALIN 100 MG (LYRICA) CAPSULE PO SCH ×2 (08:44→12:57)
[2021-06-10] MEDS: CLOPIDOGREL 75 MG (PLAVIX) TABLET PO SCH (08:44)
[2021-06-10] MEDS: APIXABAN 5 MG (ELIQUIS) TABLET PO SCH (08:44)
[2021-06-10] MEDS: dilTIAZem120 MG (CARDIZEM CD) CAP PO SCH (08:44)
[2021-06-10] MEDS: guaiFENesin (MUCINEX) 600 MG TAB PO SCH (08:44)
[2021-06-10] MEDS: FENOFIBRATE 134 MG (LOFIBRA) CAPSULE PO SCH (08:44)
[2021-06-10] MEDS: inSUlin ASPART (NovoLOG) 1 UNIT/0.01 ML (CHARGE PER UNIT) SQ SCH ×2 (08:44→12:57)
[2021-06-10] MEDS: FLUTICASONE NASAL SPRAY (FLONASE) 16 GM BTL NS SCH (08:48)
[2021-06-10] MEDS: DOXYCYCLINE INJECTION 100 MG in NS (IVPB) 100 ML IV SCH (09:03)
[2021-06-10] MEDS ORDERED: DOXY100T2 PO (10:55)
[2021-06-10] MEDS ORDERED: GUAI600T43 PO (10:55)
[2021-06-10] MEDS ORDERED: PRED10TA22 PO (10:55)
[2021-06-10] MEDS ORDERED: CYCL10TA9 PO (10:55)
[2021-06-10] MEDS ORDERED: POTA10TA36 PO (10:55)
[2021-06-10] MEDS ORDERED: FURO40TA4 PO (10:55)
[2021-06-10] MEDS ORDERED: FLUT1AER4 IH (10:55)
--- NOTE | 2021-06-10 10:56 | Discharge Summary ---
Discharge Summary Hospital Course Was the Problem List Reviewed?: Yes Problems/Dx: (1) Volume overload Status: Acute Qualifiers: Qualified Codes: E87.70 - Fluid overload, unspecified (2) Afib (3) Orthopnea Status: Acute (4) Dependence on supplemental oxygen (5) Bronchitis (6) COPD exacerbation Hospital Course Date of Admission: Jun 09, 2021 at 12:03 Admission Diagnosis : Family Physician/Provider: Sandip Ortega MD Date of Discharge: 06/10/21 Discharge Diagnosis: Respiratory insufficiency, volume overload, acute exacerbation of COPD, acute bronchitis placed on doxycycline, new O2 dependence Hospital Course: Hospital course: pt had a lengthy hospital course, he was admitted for exacerbation of CHF and respiratory failure with untreated IVONNE, given rise to all these medical issues. Pulmonology consulted, agreed with Doxycycline antibiotic and steroids, cardiology initiated diuretics. Pt was discharged on two liters of oxygen with close followup with Dr. Ortega. Labs and Pending Lab Test: Laboratory Tests 06/09/21 11:03: Glucometer 187H 06/09/21 15:16: Glucometer 250H 06/09/21 20:09: Glucometer 304H 06/10/21 05:25: Glucometer 238H, Blood Gas Puncture Site RIGHT RADIAL, Blood Gas Patient Temperature 37.0, Arterial Blood pH 7.42, Arterial Blood Partial Pressure CO2 42, Arterial Blood Partial Pressure O2 87, Arterial Blood HCO3 26, Arterial Blood Total CO2 27.5, Arterial Blood Oxygen Saturation 97, Arterial Blood Base Excess 2.1, Michele Test YES-POS, Blood Gas Ventilator Setting NO, Blood Gas Inspired Oxygen 2L 06/10/21 05:40: White Blood Count 13.3H, Red Blood Count 4.55, Hemoglobin 10.4L, Hematocrit 34L, Mean Corpuscular Volume 76L, Mean Corpuscular Hemoglobin 23L, Mean Corpuscular Hemoglobin Concent 30L, Red Cell Distribution Width 16.8H, Platelet Count 326, Mean Platelet Volume 10.8, Immature Granulocyte % (Auto) 1, Neutrophils (%) (Auto) 72, Lymphocytes (%) (Auto) 17, Monocytes (%) (Auto) 10, Eosinophils (%) (Auto) 0, Basophils (%) (Auto) 0, Neutrophils # (Auto) 9.6H, Lymphocytes # (Auto) 2.2, Monocytes # (Auto) 1.3H, Eosinophils # (Auto) 0.0, Basophils # (Auto) 0.1, Immature Granulocyte # (Auto) 0.2H, Sodium Level 135, Potassium Level 3.8, Chloride Level 101, Carbon Dioxide Level 23, Anion Gap 11, Blood Urea Nitrogen 14, Creatinine 1.18, Estimat Glomerular Filtration Rate 60, BUN/ Creatinine Ratio 12, Glucose Level 271H, Calcium Level 9.3, Corrected Calcium 9.7, Total Bilirubin 0.4, Aspartate Amino Transf (AST/SGOT) 28, Alanine Aminotransferase (ALT/SGPT) 23, Alkaline Phosphatase 60, Total Protein 6.5, Albumin 3.5 Home Meds Active Potassium Chloride 10 Meq Tab.er.prt 10 Meq PO DAILY Prednisone 10 Mg Tab.ds.pk 10 Mg PO DAILY Take 4 tabs(40mg)daily,decrease by 1 tab(10MG)daily. Doxycycline Hyclate 100 Mg Tablet 100 Mg PO BID Mucinex (Guaifenesin) 600 Mg Tab.er.12h 600 Mg PO BID Fluticasone-Salmeterol 113-14 (Fluticasone/Salmeterol) 1 Each Aer.pow.ba 0 Each IH RTBID Furosemide 40 Mg Tablet 40 Mg PO DAILY Cyclobenzaprine HCl 10 Mg Tablet 10 Mg PO BID Reported Spironolactone 25 Mg Tablet 25 Mg PO DAILY PRN Hydrocodone-Acetamin 7.5-325 (Hydrocodone/Acetaminophen) 1 Each Tablet 1 Ea PO Q6H PRN Multaq (Dronedarone HCl) 400 Mg Tablet 400 Mg PO BID Diltiazem 24Hr ER (Diltiazem HCl) 120 Mg Cap.er.24h 120 Mg PO DAILY Fluticasone Propionate 16 Gm [place].susp 2 Sprays NSEACH DAILY Basaglar Kwikpen U-100 (Insulin Glargine,Hum.rec.anlog) 100 Unit/1 Ml Insuln.pen 60 Unit SQ BID Novolog Flexpen (Insulin Aspart) 300 Units/3 Ml Solution 25 Units SQ TIDWM Proair Hfa (Albuterol Sulfate) 1 Puff Puff 2 Puff IH Q4H PRN Hydrochlorothiazide 12.5 Mg Tablet 12.5 Mg PO DAILY PRN Eliquis (Apixaban) 5 Mg Tablet 5 Mg PO BID Metoprolol Succinate 50 Mg Tab.er.24h 50 Mg PO DAILY Rosuvastatin Calcium 40 Mg Tablet 40 Mg PO DAILY Clopidogrel (Clopidogrel Bisulfate) 75 Mg Tablet 75 Mg PO DAILY Montelukast Sodium 10 Mg Tablet 10 Mg PO HS Fenofibrate (Fenofibrate Nanocrystallized) 145 Mg Tablet 145 Mg PO DAILY Pregabalin 100 Mg Capsule 100 Mg PO TID Meloxicam 15 Mg Tablet 15 Mg PO DAILY Furosemide 40 Mg Tablet 40 Mg PO BID PRN Omeprazole 20 Mg Capsule.dr 20 Mg PO DAILY Assessment/Pt Instructions Dr. Ortega in 1 week Discharge Planning: <30 minutes discharge planning Discharge Physical Examination Vital Signs Vital Signs Date Time Temp Pulse Resp B/P (MAP) Pulse Ox O2 Delivery O2 Flow Rate FiO2 06/10/21 10:47 94 Nasal Cannula 2.00 06/10/21 08:41 36.3 81 18 125/68 (87) 06/05/21 22:15 21 General Appearance: No Apparent Distress, WD/WN, Chronically ill Allergies: Coded Allergies: lisinopril (Verified Allergy, Mild, 01/15/21) MUSCLE ACHES losartan (Verified Allergy, Mild, Rash, 01/15/21) lovastatin (Verified Allergy, Mild, 01/15/21) MUSCLE ACHES rosiglitazone (Verified Allergy, Mild, Hives, 01/15/21) umeclidinium (Verified Allergy, Mild, Rash, 01/15/21) Discharge Summary Date of Admission Jun 09, 2021 at 12:03 Date of Discharge Discharge Date: Jun 10, 2021 Admission Diagnosis Assessment: Acute volume overload History of congestive heart failure Atrial fibrillation Hypertension Diabetes mellitus Suspicion for IVONNE undiagnosed Elevated BMI Plan: Supportive care Cardiology consult Pulmonary consult Home meds Discharge Diagnosis Assessment: Acute volume overload Acute bronchitis with suspicion of obesity hypoventilation syndrome History of congestive heart failure Atrial fibrillation Hypertension Diabetes mellitus Suspicion for IVONNE undiagnosed Elevated BMI Severe iron deficiency with microcytosis Vitamin B12 deficiency Plan: Supportive care Cardiology consult Pulmonary consult Home meds 06/07/2021: Supportive care Appreciate cardiology Oxygen supplementation Change albuterol to MDI IV iron B12 supplement 06/08/2021: Iron supplement Vitamin B12 Overnight O2 study 06/09/2021: Appreciate pulmonary Appreciate cardiology IV antibiotics (1) Volume overload Status: Acute Qualifiers: Qualified Codes: E87.70 - Fluid overload, unspecified (2) Afib (3) Orthopnea Status: Acute ANTHONY BRANCH DO Jun 10, 2021 10:56
--- NOTE | 2021-06-10 12:20 | Pulmonary Progress Note ---
Subjective Date Seen by a Provider: Jun 10, 2021 Time Seen by a Provider: 12:15 Subjective/Events-last exam 76 y/o M with PMHx significant for COPD, CHF, DM, Afib, HTN., CAD admitted for heart failure exacerbation in addition to acute exacerbation of COPD. Currently on Airduo Q6, Doxycycline and Medrol dose pack. No major events overnight. He is on 2L NC with exertion. States he feels his breathing is better but continues to wheeze. CXR unremarkable. Sepsis Event Evaluation Height, Weight, BMI Height: '" Weight: lbs. oz. kg; 39.12 BMI Method: Exam Exam Patient acknowledged, consented, and participated in this virtual visit which was conducted using real time audio/video Vital Signs Date Time Temp Pulse Resp B/P (MAP) Pulse Ox O2 Delivery O2 Flow Rate FiO2 06/10/21 10:47 94 Nasal Cannula 2.00 06/10/21 08:41 36.3 81 18 125/68 (87) 92 Nasal Cannula 2.00 06/10/21 08:00 91 Nasal Cannula 2.00 06/10/21 06:54 97 Nasal Cannula 2.00 06/10/21 04:16 36.8 85 18 115/60 (78) 93 Nasal Cannula 2.00 06/09/21 23:57 36.5 95 18 120/67 (84) 92 Nasal Cannula 2.00 06/09/21 20:52 93 Nasal Cannula 2.00 06/09/21 20:21 91 Nasal Cannula 2.00 06/09/21 20:00 36.4 98 18 127/74 (91) 91 Room Air 06/09/21 17:14 97 Room Air 06/09/21 16:01 36.6 94 20 160/76 (104) 90 Room Air 06/09/21 14:31 96 Room Air I & O 06/10/21 07:00 Intake Total 3242 ml Output Total 5225 ml Balance -1983 ml Height & Weight Height: '" Weight: lbs. oz. kg; 39.12 BMI Method: General Appearance: No Apparent Distress, WD/WN, Chronically ill, Obese HEENT: PERRL/EOMI, Normal ENT Inspection, Pharynx Normal, Moist Mucous Membranes Neck: Full Range of Motion, Normal Inspection, Non Tender Respiratory: No Accessory Muscle Use, No Respiratory Distress, Decreased Breath Sounds, Rales, Wheezing Cardiovascular: Regular Rate, Rhythm Capillary Refill: Less Than 3 Seconds Peripheral Pulses: 1+ Dorsalis Pedis (R), 1+ Left Dors-Pedis (L) Gastrointestinal: normal bowel sounds, soft; No distended, No guarding, No rebound; tenderness Extremity: Normal Capillary Refill, Normal Inspection, Normal Range of Motion, Non Tender, No Calf Tenderness, No Pedal Edema Neurologic/Psychiatric: Alert, Oriented x3, No Motor/Sensory Deficits, Normal Mood/Affect Skin: Normal Color, Warm/Dry Lymphatic: No Adenopathy Results Lab Laboratory Tests 06/09/21 05:15 06/10/21 05:40 Assessment/Plan Assessment/Plan 76 y/o M with PMHx significant for COPD, CHF, DM, Afib, HTN., CAD admitted for heart failure exacerbation in addition to acute exacerbation of COPD. Would cont duonebs Q6H until wheezing resolves. Ok to d/c antibiotics as no evidence of infection. Pt continues to have mild lower extremity edema. Would cont diuresis per primary team. Discussed with patient nurse who is in agreement with plan. RENU PONCE MD Jun 10, 2021 12:20
[2021-06-10] MEDS ORDERED: FLUT1DIS26 IH (13:34)
--- NOTE | 2021-06-17 10:46 | Physician Query Clarification ---
PQ-Conflicting Diagnosis Admission/Discharge Admission Date: Jun 06, 2021 at 12:03 Discharge Date: Jun 10, 2021 at 13:30 Dr. Reynolds, The medical record reflects the following clinical scenario: History/Risk Factors: fluid overload, HTN w/CHF, PAF, DM Clinical Findings: There is no clinical or radiologic or BNP evidence of any decompensated CHF per Dr. Lemos. CXR no process. PBNP - 44.9 Treatment: 40 mg IV Lasix Question: Do you agree with the impression of There is no clinical or radiologic or BNP evidence of any decompensated CHF per Dr. Lemos? Please document a response in Progress Note or Discharge Summary. 1. Yes, fluid overload only 2. No, patient has decompensated CHF 3. Other, with explanation of clinical findings 4. Clinically undetermined, no explanation for clinical findings. PHYSICIAN RESPONSE Do you agree w/Consulting Dx?: Yes Please remember a lack of response to the above will prompt a phone page by CDI/Coding staff. In responding to this query, please exercise your independent professional judgment. The purpose of this communication is to more accurately reflect the complexity of your patients condition. The fact that a question is asked does not imply that any particular answer is desired or expected. Thank you for your timely response to this clarification. Requestors name: Vicenta THIS PHYSICIAN QUERY FORM IS A PERMANENT PART OF THE MEDICAL RECORD VICENTA VILLALPANDO Jun 17, 2021 10:46 ANTHONY REYNOLDS DO Jun 17, 2021 20:44
--- NOTE | 2021-06-17 11:00 | Physician Query Clarification ---
PQ-Uncertain Diagnosis Admission/Discharge Admission Date: Jun 06, 2021 at 12:03 Discharge Date: Jun 10, 2021 at 13:30 Dr. Reynolds, The medical record reflects the following clinical scenario: History/Risk Factors: fluid overload, HTN w/ CHF, DM, PAF Clinical Findings: PH 7.42, PC02 42, P02 87, O2 Sat 97, SOB, orthopnea Treatment: Albuterol Question: Is respiratory failure a clinically valid diagnosis? Respiratory failure was documented in the in the body of the discharge summary but respiratory insufficiency was documented in the discharge diagnoses of the discharge summary with no further documentation in the medical record. Please document a response in Progress Note or Discharge Summary. 1. Yes, clinically valid, respiratory failure condition resolved. 2. No, condition ruled out. respiratory insufficiency only 3. Other, with explanation of clinical findings. 4. Undetermined, no explanation for clinical findings. PHYSICIAN RESPONSE Diagnosis clinically valid: Yes, Conditon resolved Please remember a lack of response to the above will prompt a phone page by CDI/Coding staff. In responding to this query, please exercise your independent professional judgment. The purpose of this communication is to more accurately reflect the complexity of your patients condition. The fact that a question is asked does not imply that any particular answer is desired or expected. Thank you for your timely response to this clarification. Requestors name: Vicenta THIS PHYSICIAN QUERY FORM IS A PERMANENT PART OF THE MEDICAL RECORD VICENTA VILLALPANDO Jun 17, 2021 11:00 ANTHONY REYNOLDS DO Jun 17, 2021 20:44
== END 2021-06-10 13:30 | disposition home or self-care (01) | DRG 640 ==
LOC: EDUNIT# 12:43 → ER FS 12:45 → UNDOADMOB 17:27 → 4TH 17:27 → OBSVTOIN 06-06 12:03 → INTOOBSV 06-09 12:03 → OBSVTOIN 06-09 12:03 → UNDODISIN 06-10 13:30
PROVIDERS: ADMIT Family Medicine; ATTEND Family Medicine
DX: E87.70 Fluid overload, unspecified (principal); J96.90 Respiratory failure, unspecified, unspecified whether with hypoxia or hypercapnia; E66.2 Morbid (severe) obesity with alveolar hypoventilation; T82.310A Breakdown (mechanical) of aortic (bifurcation) graft (replacement), initial encounter; J20.9 Acute bronchitis, unspecified; J43.9 Emphysema, unspecified; I25.10 Atherosclerotic heart disease of native coronary artery without angina pectoris; I48.0 Paroxysmal atrial fibrillation; I50.9 Heart failure, unspecified; I11.0 Hypertensive heart disease with heart failure; E78.00 Pure hypercholesterolemia, unspecified; K21.9 Gastro-esophageal reflux disease without esophagitis; E11.9 Type 2 diabetes mellitus without complications; E61.1 Iron deficiency; E53.8 Deficiency of other specified B group vitamins; R14.0 Abdominal distension (gaseous); E87.6 Hypokalemia; E78.5 Hyperlipidemia, unspecified; K59.00 Constipation, unspecified; E78.1 Pure hyperglyceridemia; I27.81 Cor pulmonale (chronic); H91.90 Unspecified hearing loss, unspecified ear; H54.7 Unspecified visual loss; Z86.73 Personal history of transient ischemic attack (TIA), and cerebral infarction without residual deficits; I34.0 Nonrheumatic mitral (valve) insufficiency; Z68.39 Body mass index [BMI] 39.0-39.9, adult; Z95.5 Presence of coronary angioplasty implant and graft; Z79.4 Long term (current) use of insulin; Z79.01 Long term (current) use of anticoagulants; Z99.81 Dependence on supplemental oxygen; Z79.02 Long term (current) use of antithrombotics/antiplatelets; Z79.899 Other long term (current) drug therapy; Z87.891 Personal history of nicotine dependence; Z85.828 Personal history of other malignant neoplasm of skin; Z79.82 Long term (current) use of aspirin; Z88.8 Allergy status to other drugs, medicaments and biological substances; Z23 Encounter for immunization; T50.2X5A Adverse effect of carbonic-anhydrase inhibitors, benzothiadiazides and other diuretics, initial encounter
CPT/HCPCS: 36415; 71045; 71046; 74177; 80048; 80053; 80076; 82274; 82607; 82728; 82805; 82947; 83540; 83550; 83690; 83735; 83880; 84145; 84484; 85025; 85610; 85730; 87070; 87205; 93005; 93306; 94640; 94760; 94761; G0378

== ENCOUNTER 2022-05-06 11:18 | Inpatient (IN) | payer MEDICARE ==
[~2022-05-06] VITALS: Ht 188 cm; Wt 133.0 kg
[~2022-05-06 11:18] MED LIST changes: +CYCL10TA25 PO; +DILT-27 PO; +DOXY100T2 PO; +DRON400T6 PO; +FLUT16SP22 NSEACH; +FLUT1AER4 IH; +FLUT1DIS26 IH; +GUAI600T43 PO; +HYDR-3817 PO; +MONT-40 PO; -MONT10TA32 PO; +POTA-177 PO; +PRED10TA22 PO; +SPIR25TA5 PO
[2022-05-06] MEDS ORDERED: KETOROLAC 30 MG/ML VIAL IVP ONE (11:45)
--- NOTE | 2022-05-06 12:02 | ED EENT ---
History of Present Illness General Chief Complaint: Oral/Throat Problems Stated Complaint: TONGUE SWELLING/PAIN Nursing Triage Note: Pt states that he has been having a sore throat for the last week and three days ago it got a lot worse. He is able to swallow, but it is painful. Source: patient Exam Limitations: no limitations History of Present Illness Date Seen by Provider: May 06, 2022 Time Seen by Provider: 11:30 Initial Comments Patient is a 77-year-old edentulous male who presents with submental swelling pain tenderness which began gradually over 2 weeks and has progressively worsened over the past 3 days. Patient denies painful swallowing, voice hoarseness, fever chills or sweats. Denies gingival pain or swelling. He wears his dentures only when eating. 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 No medications or home remedies trialed prior to ED arrival. Timing/Duration: gradual Severity: mild Location: other Prearrival Treatment: other Modifying Factors: Improves With Other Associated Symptoms: other Allergies and Home Medications Allergies Coded Allergies: lisinopril (Verified Allergy, Mild, 01/15/21) MUSCLE ACHES losartan (Verified Allergy, Mild, Rash, 01/15/21) lovastatin (Verified Allergy, Mild, 01/15/21) MUSCLE ACHES rosiglitazone (Verified Allergy, Mild, Hives, 01/15/21) umeclidinium (Verified Allergy, Mild, Rash, 01/15/21) Patient Home Medication List Home Medication List Reviewed: Yes Albuterol Sulfate (Proair Hfa) 1 Puff Puff, 2 PUFF IH Q4H PRN for SHORTNESS OF BREATH, (Reported) Entered as Reported by: DAVID SADLER on 01/15/21 1043 Apixaban (Eliquis) 5 Mg Tablet, 5 MG PO BID, (Reported) Entered as Reported by: DAVID SADLER on 01/15/21 1043 Clopidogrel Bisulfate (Clopidogrel) 75 Mg Tablet, 75 MG PO DAILY, (Reported) Entered as Reported by: DAVID SADLER on 01/15/21 1043 Cyclobenzaprine HCl (Cyclobenzaprine HCl) 10 Mg Tablet, 10 MG PO BID Prescribed by: ANTHONY BRANCH on 06/10/21 1055 Diltiazem HCl (Diltiazem 24Hr ER) 120 Mg Cap.er.24h, 120 MG PO DAILY, (Reported) Entered as Reported by: CHARLIE GIRON on 06/06/21 1124 Doxycycline Hyclate (Doxycycline Hyclate) 100 Mg Tablet, 100 MG PO BID Prescribed by: ANTHONY BRANCH on 06/10/21 1055 Dronedarone HCl (Multaq) 400 Mg Tablet, 400 MG PO BID, (Reported) Entered as Reported by: CHARLIE GIRON on 06/06/21 1124 Fenofibrate Nanocrystallized (Fenofibrate) 145 Mg Tablet, 145 MG PO DAILY, (Reported) Entered as Reported by: DAVID SADLER on 01/15/21 1043 Fluticasone Propionate (Fluticasone Propionate) 16 Gm [place].susp, 2 SPRAYS NSEACH DAILY, (Reported) Entered as Reported by: CHARLIE GIRON on 06/06/21 112 Fluticasone/Salmeterol (Fluticasone-Salmeterol 113-14) 1 Each Aer.pow.ba, 0 EACH IH RTBID Prescribed by: ANTHONY BRANCH on 06/10/21 1055 Fluticasone/Salmeterol (Advair 250-50 Diskus) 1 Each Blst.w.dev, 1 EACH IH BID Prescribed by: ANTHONY BRANCH on 06/10/21 1334 Furosemide (Furosemide) 40 Mg Tablet, 40 MG PO DAILY Prescribed by: ANTHONY BRANCH on 06/10/21 1055 Guaifenesin (Mucinex) 600 Mg Tab.er.12h, 600 MG PO BID Prescribed by: ANTHONY BRANCH on 06/10/21 1055 Hydrocodone/Acetaminophen (Hydrocodone-Acetamin 7.5-325) 1 Each Tablet, 1 EA PO Q6H PRN for PAIN-MODERATE (5-7), (Reported) Entered as Reported by: CHARLIE GIRON on 06/06/21 1124 Insulin Aspart (Novolog Flexpen) 300 Units/3 Ml Solution, 25 UNITS SQ TIDWM, (Reported) Entered as Reported by: DAVID SADLER on 01/15/21 1043 Insulin Glargine,Hum.rec.anlog (Basaglar Kwikpen U-100) 100 Unit/1 Ml Insuln.pen, 60 UNIT SQ BID, (Reported) Entered as Reported by: DAVID SADLER on 01/15/21 1043 Metoprolol Succinate (Metoprolol Succinate) 50 Mg Tab.er.24h, 50 MG PO DAILY, (Reported) Entered as Reported by: DAVID SADLER on 01/15/21 1043 Montelukast Sodium (Montelukast Sodium) 10 Mg Tablet, 10 MG PO HS, (Reported) Entered as Reported by: DAVID SADLER on 01/15/21 1043 Omeprazole (Omeprazole) 20 Mg Capsule.dr, 20 MG PO DAILY, (Reported) Entered as Reported by: DAVID SADLER on 01/15/21 1043 Potassium Chloride (Potassium Chloride) 10 Meq Tab.er.prt, 10 MEQ PO DAILY Prescribed by: ANTHONY BRANCH on 06/10/21 1055 Prednisone (Prednisone) 10 Mg Tab.ds.pk, 10 MG PO DAILY Prescribed by: ANTHONY BRANCH on 06/10/21 1055 Pregabalin (Pregabalin) 100 Mg Capsule, 100 MG PO TID, (Reported) Entered as Reported by: DAVID SADLER on 01/15/21 1043 Rosuvastatin Calcium (Rosuvastatin Calcium) 40 Mg Tablet, 40 MG PO DAILY, (Reported) Entered as Reported by: DAVID SADLER on 01/15/21 1043 Spironolactone (Spironolactone) 25 Mg Tablet, 25 MG PO DAILY PRN for FLUID RETENTION, (Reported) Entered as Reported by: CHARLIE GIRON on 06/06/21 1124 Review of Systems Review of Systems Constitutional: see HPI Eyes: See HPI Ears: See HPI Nose: see HPI Mouth: see HPI Throat: see HPI Respiratory: see HPI Cardiovascular: see HPI Past Uqhkrlc-Ulgdws-Sefkci Hx Patient Social History Tobacco Use?: Yes Smokeless Tobacco Frequency: Current Everyday User Use of E-Cig and/or Vaping dev: No Substance use?: No Alcohol Use?: No Pt feels they are or have been: No Immunizations Up To Date First/Initial COVID19 Vaccinat: DECEMBER 2020 Second COVID19 Vaccination Moi: JANUARY 2021 Past Medical History Surgery/Hospitalization HX: aneurysm repair; multiple (aortic/iliac), Appendectomy, pilonidal cyst, tailbone, HTN, chronic A Fib, hyperlipidemia, IDDM/Type II, COPD, IVONNE (no CPAP tolerance), skin cancer Appendectomy Respiratory: Yes Emphysema Cardiac: Yes Atrial Fibrillation, Coronary Artery Disease, High Cholesterol, Hypertension Neurological: Yes TIA Genitourinary: No Gastrointestinal: Yes Gastroesophageal Reflux Cancer: Yes Skin Did You Recieve Any Treatments: Yes What Type of Treatment Did You: Surgical Intervention Blood Disorders: No Physical Exam Vital Signs Vital Signs - First Documented 05/06/22 11:25 Temp 36.2 Pulse 76 Resp 20 B/P (MAP) 150/67 (94) Pulse Ox 95 O2 Delivery Room Air Height, Weight, BMI Height: '" Weight: lbs. oz. kg; 37.00 BMI Method: General Appearance: WD/WN, cachetic Eyes: bilateral eye normal inspection, bilateral eye PERRL Ears: bilateral ear auricle normal, bilateral ear canal normal Nose: normal inspection Mouth/Throat: normal mouth inspection, other (Submandibular swelling, pain with tenderness. No erythema induration or palpable masses. No cervical lymphadenopa thy appreciated. 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 nml as tested, no motor/sensory deficits, alert Progress/Results/Core Measures Results/Orders Lab Results Laboratory Tests Test 05/06/22 12:34 Range/Units White Blood Count 10.5 4.3-11.0 10^3/uL Red Blood Count 3.96 L 4.30-5.52 10^6/uL Hemoglobin 6.3 *L 13.3-17.7 g/dL Hematocrit 23 L 40-54 % Mean Corpuscular Volume 59 L 80-99 fL Mean Corpuscular Hemoglobin 16 L 25-34 pg Mean Corpuscular Hemoglobin Concent 27 L 32-36 g/dL Red Cell Distribution Width 21.1 H 10.0-14.5 % Platelet Count 414 H 130-400 10^3/uL Mean Platelet Volume 9.8 9.0-12.2 fL Immature Granulocyte % (Auto) 3 % Neutrophils (%) (Auto) 65 42-75 % Lymphocytes (%) (Auto) 19 12-44 % Monocytes (%) (Auto) 8 0-12 % Eosinophils (%) (Auto) 3 0-10 % Basophils (%) (Auto) 1 0-10 % Neutrophils # (Auto) 6.9 1.8-7.8 10^3/uL Lymphocytes # (Auto) 2.0 1.0-4.0 10^3/uL Monocytes # (Auto) 0.9 0.0-1.0 10^3/uL Eosinophils # (Auto) 0.4 H 0.0-0.3 10^3/uL Basophils # (Auto) 0.1 0.0-0.1 10^3/uL Immature Granulocyte # (Auto) 0.3 H 0.0-0.1 10^3/uL Percent Immature Platelet Fraction 4.4 0.0-7.6 % Sodium Level 132 L 135-145 MMOL/L Potassium Level 4.1 3.6-5.0 MMOL/L Chloride Level 97 L 98-107 MMOL/L Carbon Dioxide Level 24 21-32 MMOL/L Anion Gap 11 5-14 MMOL/L Blood Urea Nitrogen 14 7-18 MG/DL Creatinine 1.18 0.60-1.30 MG/DL Estimat Glomerular Filtration Rate 64 BUN/Creatinine Ratio 12 Glucose Level 342 H 70-105 MG/DL Calcium Level 8.8 8.5-10.1 MG/DL Corrected Calcium 9.0 8.5-10.1 MG/DL Total Bilirubin 0.3 0.1-1.0 MG/DL Aspartate Amino Transf (AST/SGOT) 16 5-34 U/L Alanine Aminotransferase (ALT/SGPT) 10 0-55 U/L Alkaline Phosphatase 96 40-136 U/L Total Protein 6.6 6.4-8.2 GM/DL Albumin 3.8 3.2-4.5 GM/DL My Orders Orders - HUY CARMONA DO Cbc With Automated Diff (05/06/22 11:42) Comprehensive Metabolic Panel (05/06/22 11:42) Ketorolac Injection (Toradol Injection) (05/06/22 11:45) Iohexol Injection (Omnipaque 350 Mg/Ml 1 (05/06/22 12:15) Received Contrast (Hold Metformin- Contr (05/06/22 12:15) Ns (Ivpb) (Sodium Chloride 0.9% Ivpb Bag (05/06/22 12:15) Ct Neck (Soft Tissue) W (05/06/22 11:42) Occult Blood Stool (05/06/22 13:44) Clindamycin Capsule (Cleocin Capsule) (05/06/22 15:00) Medications Given in ED Current Medications Medications Dose Ordered Sig/Justin Route Start Time Stop Time Status Last Admin Dose Admin Iohexol 100 ml ONCE ONCE IV 05/06/22 12:15 05/06/22 12:16 DC 05/06/22 13:20 75 ML Ketorolac Tromethamine 15 mg ONCE ONCE IVP 05/06/22 11:45 05/06/22 11:46 DC 05/06/22 12:40 15 MG Sodium Chloride 100 ml ONCE ONCE IV 05/06/22 12:15 05/06/22 12:16 DC 05/06/22 13:20 100 ML Vital Signs/I&O 05/06/22 11:25 Temp 36.2 Pulse 76 Resp 20 B/P (MAP) 150/67 (94) Pulse Ox 95 O2 Delivery Room Air Blood Pressure Mean: 94 Departure Communication (Admissions) CT maxillofacial with IV contrast: No acute findings per radiology report. Patient currently on Plavix and Eliquis for treatment of chronic A. fib and vascular stents. He has an incidental hemoglobin of 6.3. Hemoccult testing is negative. Case reviewed with Dr. Esparza patient's home health care worker. Recommendations are to hold current anticoagulation medication, hospital admission for transfusion and further evaluation of anemia. The patient is not currently having any cardiac related symptoms. His oral exam and CT findings are consistent with glossitis. We will place him on oral antibiotics and admit to [facility] hospitalist service. Impression Primary Impression: Anemia Additional Impressions: Anticoagulant long-term use Glossitis Disposition: ADMITTED INPATIENT Condition: Stable Admissions Decision to Admit Reason: Admit from ER (General) Decision to Admit/Date: May 06, 2022 Time/Decision to Admit Time: 14:30 Transfer Time Spoke to Accepting Phy: 15:14 (Dr. Jean-Baptiste) Departure-Patient Inst. Referrals: SELF,TRACEE CARLISLE (PCP/Family) Primary Care Physician HUY CARMONA DO May 06, 2022 12:02
[2022-05-06] MEDS ORDERED: IOHEXOL 350 MG/ML 100 ML (OMNIPAQUE 350) VIAL IV ONE (12:15)
[2022-05-06] MEDS ORDERED: NS 100 ML (IVPB) BAG IV ONE (12:15)
[2022-05-06] MEDS ORDERED: HOLD METFORMIN - RECEIVED CONTRAST 20 ML VIAL IV SCH (12:15)
[2022-05-06 12:51] LABS: BASOPHILS # (AUTO) 0.1 10^3/uL (0.0-0.1); BASOPHILS % (AUTO) 1 % (0-10); EOSINOPHILS # (AUTO) 0.4 10^3/uL (0.0-0.3); EOSINOPHILS % (AUTO) 3 % (0-10); HEMATOCRIT 23 % (40-54); LYMPHOCYTES % (AUTO) 19 % (12-44); MEAN CORPUSCULAR HEMOGLOBIN 16 pg (25-34); MEAN CORPUSCULAR HGB CONC 27 g/dL (32-36); MEAN CORPUSCULAR VOLUME 59 fL (80-99); MEAN PLATELET VOLUME 9.8 fL (9.0-12.2); MONOCYTES # (AUTO) 0.9 10^3/uL (0.0-1.0); MONOCYTES % (AUTO) 8 % (0-12); NEUTROPHILS # (AUTO) 6.9 10^3/uL (1.8-7.8); NEUTROPHILS % (AUTO) 65 % (42-75); PLATELET COUNT 414 10^3/uL (130-400); WHITE BLOOD COUNT 10.5 10^3/uL (4.3-11.0)
[2022-05-06 12:52] LABS: HEMOGLOBIN 6.3 g/dL (13.3-17.7)
[2022-05-06 13:04] LABS: POTASSIUM 4.1 MMOL/L (3.6-5.0)
[2022-05-06 13:05] LABS: ALBUMIN 3.8 GM/DL (3.2-4.5); BILIRUBIN,TOTAL 0.3 MG/DL (0.1-1.0); CALCIUM 8.8 MG/DL (8.5-10.1); CREATININE SERUM 1.18 MG/DL (0.60-1.30); TOTAL PROTEIN 6.6 GM/DL (6.4-8.2)
--- NOTE | 2022-05-06 13:38 | Diagnostic Imaging Report ---
PROCEDURE: CT neck soft tissue with contrast. TECHNIQUE: Multiple contiguous axial images were obtained through the neck after the administration of contrast. Auto Exposure Controls were utilized during the CT exam to meet ALARA standards for radiation dose reduction. INDICATION: Sore throat. Swelling of the tongue and jaw. COMPARISON: None. Findings: The posterior nasopharynx and oropharynx demonstrate appropriate symmetry. The patient is edentulous. There is no displacement of the parapharyngeal fat planes. There is no abnormal process evident within the prevertebral or retropharyngeal space. There is no evidence of abnormal thickening of the epiglottis or aryepiglottic folds. The vocal folds appear symmetric. The parotid, submandibular and thyroid gland are unremarkable. No pathologically enlarged cervical lymph nodes are evident. No focal inflammatory changes are demonstrated. No soft tissue mass or fluid collection demonstrated. The vascular structures the neck demonstrate no evidence of high-grade stenosis on this nondedicated exam. The visualized lung apices are clear. The visualized intracranial contents demonstrate no evidence of pathologic intracranial enhancement or intracranial mass effect. Visualized orbital contents are unremarkable. Retained secretions and mucosal thickening are seen throughout the left maxillary sinus. The mastoids and middle ears are clear. No acute osseous abnormality in the cervical spine. Impression: 1. Appropriate symmetry of the aerodigestive tract. 2. No evidence of pathologic adenopathy. 3. Sinusitis involving the left maxillary sinus. Dictated by: Dictated on workstation # [id number]
[2022-05-06] MEDS ORDERED: CLINDAMYCIN 150 MG (CLEOCIN) CAP PO ONE (15:00)
[2022-05-06 18:10] VITALS: BP 140/63
[2022-05-06 19:08] VITALS: BP 130/60
[2022-05-06] MEDS ORDERED: RT-ALBUTEROL SULF 2.5 MG/3 ML PRE-MIX VIAL INH PRN (20:30)
[2022-05-06] MEDS ORDERED: inSUlin ASPART (NovoLOG) 1 UNIT/0.01 ML (CHARGE PER UNIT) SC ONE (21:00)
[2022-05-07] VITALS (12 sets, daily range): BP systolic 122–158; BP diastolic 57–79
[2022-05-07 05:58] LABS: BASOPHILS # (AUTO) 0.1 10^3/uL (0.0-0.1); BASOPHILS % (AUTO) 1 % (0-10); EOSINOPHILS # (AUTO) 0.4 10^3/uL (0.0-0.3); EOSINOPHILS % (AUTO) 4 % (0-10); HEMATOCRIT 23 % (40-54); LYMPHOCYTES # (AUTO) 1.7 10^3/uL (1.0-4.0); LYMPHOCYTES % (AUTO) 17 % (12-44); MEAN CORPUSCULAR HEMOGLOBIN 15 pg (25-34); MEAN CORPUSCULAR HGB CONC 26 g/dL (32-36); MEAN CORPUSCULAR VOLUME 60 fL (80-99); MONOCYTES # (AUTO) 0.8 10^3/uL (0.0-1.0); MONOCYTES % (AUTO) 7 % (0-12); NEUTROPHILS # (AUTO) 7.4 10^3/uL (1.8-7.8); NEUTROPHILS % (AUTO) 70 % (42-75); PLATELET COUNT 381 10^3/uL (130-400); WHITE BLOOD COUNT 10.6 10^3/uL (4.3-11.0)
[2022-05-07 06:14] LABS: HEMOGLOBIN 5.9 g/dL (13.3-17.7)
[2022-05-07 06:17] LABS: ALBUMIN 3.3 GM/DL (3.2-4.5)
[2022-05-07 06:18] LABS: POTASSIUM 3.9 MMOL/L (3.6-5.0)
[2022-05-07 06:19] LABS: CALCIUM 8.6 MG/DL (8.5-10.1)
[2022-05-07 06:20] LABS: TOTAL PROTEIN 6.3 GM/DL (6.4-8.2)
[2022-05-07 06:22] LABS: BILIRUBIN,TOTAL 0.6 MG/DL (0.1-1.0)
[2022-05-07 06:24] LABS: CREATININE SERUM 1.02 MG/DL (0.60-1.30)
[2022-05-07] MEDS ORDERED: NS IV 500 ML 500 ML IV SCH ×2 (06:45→19:30)
[2022-05-07] MEDS ORDERED: diphenhydrAMINE 2% 30 GM CR (ALLERGY CREAM) TOP PRN (07:45)
--- NOTE | 2022-05-07 07:56 | Consultation-Cardiology ---
HPI-Cardiology Cardiology Consultation Date of Consultation 05/07/22 Date of Admission Time Seen by Provider: 07:50 Indication: Chest pain HPI 77-year-old gentleman with extensive cardiac history, reported that for the past few weeks has been having GI discomfort with abdominal discomfort, gastroesophageal reflux and sore throat, he lost his voice. Reported 2 days ago an episode of chest pain left-sided with bilateral arm pain. Shortness of breath. Generalized fatigue and loss of energy. Denied any melena. No blood in the stool. He came into the emergency room for increasing weakness and fatigue. Loss of energy. Noted to have severe anemia Home Medications & Allergies Allergies: Coded Allergies: lisinopril (Verified Allergy, Mild, 01/15/21) MUSCLE ACHES losartan (Verified Allergy, Mild, Rash, 01/15/21) lovastatin (Verified Allergy, Mild, 01/15/21) MUSCLE ACHES rosiglitazone (Verified Allergy, Mild, Hives, 01/15/21) umeclidinium (Verified Allergy, Mild, Rash, 01/15/21) Home Medication List Reviewed: Yes YRG-Vbwqgu-Vmuwqo Hx Patient Social History Marital Status: Employed/Student: retired Smoking Status: Former Smoker Type Used: Smokeless Tobacco Recent Hopitalizations: Yes (3 WEEKS AGO ABD ANEURYSM REPAIR) Have you traveled recently?: No Alcohol Use?: No Immunizations Up To Date Date of Influenza Vaccine: Jun 06, 2020 Past Medical History Discussed below Family Medical History Family Medical Hx Noncontributory Review of Systems-General Review of Systems Constitutional: see HPI, malaise, weakness EENTM: see HPI, no symptoms reported Respiratory: see HPI; No cough; dyspnea on exertion; No hemoptysis, No orthopnea, No phlegm, No short of breath, No stridor, No wheezing, No other Cardiovascular: see HPI, chest pain; No edema, No Hx of Intervention, No palpitations, No syncope, No vascular heart diseas, No other Gastrointestinal: no symptoms reported, see HPI Genitourinary: no symptoms reported, see HPI Musculoskeletal: no symptoms reported, see HPI Skin: no symptoms reported, see HPI Psychiatric/Neurological: No Symptoms Reported, See HPI Reviewed Test Results Reviewed Test Results Lab Laboratory Tests Test 05/06/22 12:34 05/06/22 20:07 05/07/22 05:00 05/07/22 05:08 Range/Units White Blood Count 10.5 10.6 4.3-11.0 10^3/uL Red Blood Count 3.96 L 3.83 L 4.30-5.52 10^6/uL Hemoglobin 6.3 *L 5.9 *L 13.3-17.7 g/dL Hematocrit 23 L 23 L 40-54 % Mean Corpuscular Volume 59 L 60 L 80-99 fL Mean Corpuscular Hemoglobin 16 L 15 L 25-34 pg Mean Corpuscular Hemoglobin Concent 27 L 26 L 32-36 g/dL Red Cell Distribution Width 21.1 H 20.7 H 10.0-14.5 % Platelet Count 414 H 381 130-400 10^3/uL Mean Platelet Volume 9.8 10.0 9.0-12.2 fL Immature Granulocyte % (Auto) 3 2 % Neutrophils (%) (Auto) 65 70 42-75 % Lymphocytes (%) (Auto) 19 17 12-44 % Monocytes (%) (Auto) 8 7 0-12 % Eosinophils (%) (Auto) 3 4 0-10 % Basophils (%) (Auto) 1 1 0-10 % Neutrophils # (Auto) 6.9 7.4 1.8-7.8 10^3/uL Lymphocytes # (Auto) 2.0 1.7 1.0-4.0 10^3/uL Monocytes # (Auto) 0.9 0.8 0.0-1.0 10^3/uL Eosinophils # (Auto) 0.4 H 0.4 H 0.0-0.3 10^3/uL Basophils # (Auto) 0.1 0.1 0.0-0.1 10^3/uL Immature Granulocyte # (Auto) 0.3 H 0.2 H 0.0-0.1 10^3/uL Percent Immature Platelet Fraction 4.4 0.0-7.6 % Sodium Level 132 L 137 135-145 MMOL/L Potassium Level 4.1 3.9 3.6-5.0 MMOL/L Chloride Level 97 L 104 98-107 MMOL/L Carbon Dioxide Level 24 24 21-32 MMOL/L Anion Gap 11 9 5-14 MMOL/L Blood Urea Nitrogen 14 15 7-18 MG/DL Creatinine 1.18 1.02 0.60-1.30 MG/DL Estimat Glomerular Filtration Rate 64 76 BUN/Creatinine Ratio 12 15 Glucose Level 342 H 120 H 70-105 MG/DL Calcium Level 8.8 8.6 8.5-10.1 MG/DL Corrected Calcium 9.0 9.2 8.5-10.1 MG/DL Total Bilirubin 0.3 0.6 0.1-1.0 MG/DL Aspartate Amino Transf (AST/SGOT) 16 20 5-34 U/L Alanine Aminotransferase (ALT/SGPT) 10 11 0-55 U/L Alkaline Phosphatase 96 65 40-136 U/L Total Protein 6.6 6.3 L 6.4-8.2 GM/DL Albumin 3.8 3.3 3.2-4.5 GM/DL Glucometer 273 H 134 H 70-110 MG/DL Physical Exam Physical Exam Vital Signs Vital Signs - First Documented 05/06/22 05/06/22 05/06/22 11:25 16:58 20:20 Temp 36.2 Pulse 76 Resp 20 B/P (MAP) 150/67 (94) Pulse Ox 95 O2 Delivery Room Air O2 Flow Rate 2.00 FiO2 28 Capillary Refill : Less Than 3 Seconds Height, Weight, BMI Height: '" Weight: lbs. oz. kg; 37.63 BMI Method: General Appearance: No Apparent Distress, WD/WN Eyes: Bilateral Eye Normal Inspection, Bilateral Eye PERRL HEENT: PERRL/EOMI, TMs Normal, Normal ENT Inspection, Pharynx Normal, Moist Mucous Membranes Neck: Full Range of Motion, Normal Inspection, Non Tender, Supple, Carotid Bruit Respiratory: Chest Non Tender, Normal Breath Sounds, No Accessory Muscle Use, No Respiratory Distress Cardiovascular: Regular Rate, Rhythm, No Edema, No JVD, Normal Peripheral Pulses, Systolic Murmur, Gallop/S3 Gastrointestinal: Normal Bowel Sounds, No Organomegaly, No Pulsatile Mass, Non Tender, Soft Back: Normal Inspection, No CVA Tenderness, No Vertebral Tenderness Extremity: Normal Capillary Refill, Normal Inspection, Normal Range of Motion, Non Tender, No Calf Tenderness, No Pedal Edema Neurologic/Psychiatric: Alert, Oriented x3, No Motor/Sensory Deficits, Normal Mood/Affect Skin: Normal Color, Warm/Dry Lymphatic: No Adenopathy A/P-Cardiology Admission Diagnosis Chest pain Anemia Coronary artery disease Paroxysmal atrial fibrillation Assessment/Plan Chest pain, unstable angina, most probably secondary to coronary artery disease and severe anemia. Recommend blood transfusion and evaluate for source of blood loss Holding aspirin and Plavix for now and monitor. Anemia, most probably GI blood loss. Discussed with Dr. Meyer and recommended endoscopy Will transfuse 1 unit of packed RBCs. Paroxysmal atrial fibrillation, h/o failed cardioversion in January 2021, had a nother cardioversion on 02.05.[address] Cornejo at [facility], Maintained on Eliquis, Cardizem CD, Multaq. I will hold Eliquis for now and monitor [id number] score of 6, yearly risk of stroke without oral anticoagulation is over 6 percent, holding Eliquis and monitor Coronary artery disease, history of multiple interventions in the past, reporting that he had multiple stents done at [facility] in the remote past and he had under deployed stent. Has been on aspirin and Plavix, currently on hold. Abdominal aortic aneurysm, workup showed that the aneurysm measured 5 cm in the infrarenal abdominal aorta, he has bilateral iliac aneurysm, s/p AAA repair done by Dr. Urena in December 2020. Discussed with Dr. Meyer, will evaluate CT of the abdomen and pelvis. Patient reportedly in the lower extremity most probably around the aneurysm in the iliac artery Hypertension, restart home medication monitor blood pressure Hyperlipidemia, hypertriglyceridemia, maintained on fenofibrate and rosuvastatin. I will evaluate lipid profile Diabetes mellitus, followed and managed by primary care physician COPD/IVONNE, was intolerant to C Pap machine. Hospitalized last month for AE COPD. Will refer to seat cover maker for further evaluation. History of multiple TIAs/CVA, maintained on Plavix and Eliquis Obesity, BMI 37, we discussed weight loss. Tobaccoism, stopped smoking 2 years ago, encouraged to continue with smoking cessation. TONIO LOPEZ MD May 07, 2022 07:56
[2022-05-07 08:30] LABS: TRIGLYCERIDES 74 MG/DL (<150); VLDL CHOLESTEROL 15 MG/DL (5-40)
[2022-05-07 08:35] LABS: CHOLESTEROL 104 MG/DL (< 200)
[2022-05-07 08:36] LABS: HDL CHOLESTEROL 26 MG/DL (40-60)
[2022-05-07] MEDS: PANTOPRAZOLE 40 MG (PROTONIX) VIAL IV SCH ×2 (09:01→22:05)
[2022-05-07] MEDS ORDERED: CATHETER FLUSH 10 ML SYR IV PRN (09:15)
[2022-05-07] MEDS ORDERED: IOHEXOL 350 MG/ML 100 ML (OMNIPAQUE 350) VIAL IV ONE (09:15)
[2022-05-07] MEDS ORDERED: HOLD METFORMIN - RECEIVED CONTRAST 20 ML VIAL IV SCH (09:15)
[2022-05-07] MEDS ORDERED: NS 100 ML (IVPB) BAG IV ONE (09:15)
[2022-05-07] MEDS ORDERED: FLUT1DIS26 IH (10:48)
[2022-05-07] MEDS ORDERED: DILT120C85 PO (10:48)
[2022-05-07] MEDS ORDERED: FURO40TA4 PO (10:48)
[2022-05-07] MEDS ORDERED: ASPI-1238 PO (10:54)
--- NOTE | 2022-05-07 11:52 | History & Physical ---
RAMÍREZ BERMEO 05/07/22 1152: HPI History of Present Illness: Patient is a 77 yo male admitted for anemia after visiting the ED for persistent sore throat. Sore throat started a couple weeks ago after a sinus infection and has progressed in severity with painful and difficult swallowing. Complains of nausea w/o vomiting, intermittent headaches, orthostatic hypotension, and diarrhea that started last night w/o blood or melena. Patient states that Dr. Urena told him that he had an aneurysmal bleed. Source: patient Exam Limitations: no limitations Date seen by provider: May 07, 2022 Time Seen by Provider: 08:15 Attending Physician Sandip Ortega MD PCP Admitting Physician: Ashleigh Coello MD Attending Physician: Ashleigh Coello MD Consult Date of Admission May 06, 2022 at 17:42 Home Medications Home Medications Reviewed patient Home Medication Reconciliation performed by pharmacy medication reconciliations retread technician and/or nursing. Patients Allergies have been reviewed. Allergies Coded Allergies: lisinopril (Verified Allergy, Mild, 01/15/21) MUSCLE ACHES losartan (Verified Allergy, Mild, Rash, 01/15/21) lovastatin (Verified Allergy, Mild, 01/15/21) MUSCLE ACHES rosiglitazone (Verified Allergy, Mild, Hives, 01/15/21) umeclidinium (Verified Allergy, Mild, Rash, 01/15/21) AZO-Rhwvnn-Wzmnxy Hx Patient Social History Marrital Status: Employed/Student: retired Smoking Status: Former Smoker (Quit smoking 3 years ago after smoking since he was 11. (63 year smoking history)) Recent Hopitalizations: Yes (3 WEEKS AGO ABD ANEURYSM REPAIR) Alcohol Use?: No Tobacco type used: Cigarettes Have you traveled recently?: No Immunizations Up To Date Influenza Vaccine Up-to-Date: Yes; Up-to-Date First/Initial COVID19 Vaccinat: DECEMBER 2020 Second COVID19 Vaccination Moi: JANUARY 2021 Past Medical History Med Hx: Atrial fibrillation Congestive Heart Failure Emphysema COPD Diabetes Mellitus Surg Hx: Multiple aortic repairs Cardiac Stent Placement 3x Appendectomy (1953) Review of Systems ([facility]) Constitutional: see HPI; No chills; dizziness (When standing) EENTM: hoarseness, throat pain, other (Painful swallowing) Respiratory: no symptoms reported, see HPI, cough Cardiovascular: see HPI, Hx of Intervention, vascular heart diseas Gastrointestinal: see HPI; No abdominal pain, No constipation; diarrhea (Started yesterday), dysphagia; No melena; nausea; No vomiting Genitourinary: no symptoms reported Musculoskeletal: no symptoms reported Skin: no symptoms reported Psychiatric/Neurological: No Symptoms Reported Reviewed Test Results Reviewed Test Results Lab RBC: 3.83 down from 3.96 HGB: 5.9 down from 6.3 HCT: 23 MCV: 60 MCH: 15 MCHC: 26 RDW: 20.7 Radiology Date of Exam:05/06/22 CT NECK (SOFT TISSUE) W PROCEDURE: CT neck soft tissue with contrast. TECHNIQUE: Multiple contiguous axial images were obtained through the neck after the administration of contrast. Auto Exposure Controls were utilized during the CT exam to meet ALARA standards for radiation dose reduction. INDICATION: Sore throat. Swelling of the tongue and jaw. COMPARISON: None. Findings: The posterior nasopharynx and oropharynx demonstrate appropriate symmetry. The patient is edentulous. There is no displacement of the parapharyngeal fat planes. There is no abnormal process evident within the prevertebral or retropharyngeal space. There is no evidence of abnormal thickening of the epiglottis or aryepiglottic folds. The vocal folds appear symmetric. The parotid, submandibular and thyroid gland are unremarkable. No pathologically enlarged cervical lymph nodes are evident. No focal inflammatory changes are demonstrated. No soft tissue mass or fluid collection demonstrated. The vascular structures the neck demonstrate no evidence of high-grade stenosis on this nondedicated exam. The visualized lung apices are clear. The visualized intracranial contents demonstrate no evidence of pathologic intracranial enhancement or intracranial mass effect. Visualized orbital contents are unremarkable. Retained secretions and mucosal thickening are seen throughout the left maxillary sinus. The mastoids and middle ears are clear. No acute osseous abnormality in the cervical spine. Impression: 1. Appropriate symmetry of the aerodigestive tract. 2. No evidence of pathologic adenopathy. 3. Sinusitis involving the left maxillary sinus. Dictated by: Dictated on workstation # [id number] Dict: 05/06/22 1332 Trans: 05/06/22 1342 CVB [id number] Interpreted by: AD FREDERICK DO Electronically signed by: AD FREDERICK DO 05/06/22 1348 Abd/pelvic CTA has also been conducted, interpretation not yet available. Physical Exam-([facility]) Physical Exam Vital Signs VS - Last 72 Hours, by Label 05/06/22 05/06/22 05/06/22 05/06/22 11:25 16:58 18:10 18:15 Temp 36.2 36.5 Pulse 76 75 87 Resp 20 22 B/P (MAP) 150/67 (94) 102/44 140/63 (88) Pulse Ox 95 98 97 O2 Delivery Room Air Nasal Cannula Nasal Cannula Nasal Cannula O2 Flow Rate 2.00 2.00 2.00 05/06/22 05/06/22 05/06/22 05/06/22 18:50 19:00 19:08 19:15 Temp 36.9 Pulse 71 70 70 Resp 20 B/P (MAP) 130/60 (83) Pulse Ox 98 97 O2 Delivery Nasal Cannula Nasal Cannula O2 Flow Rate 2.00 2.00 05/06/22 05/07/22 05/07/22 05/07/22 20:20 00:12 01:00 03:40 Temp 37.1 35.8 Pulse 83 78 73 Resp 20 20 B/P (MAP) 135/60 (85) 132/59 (83) Pulse Ox 97 93 94 O2 Delivery Nasal Cannula Room Air O2 Flow Rate 2.00 FiO2 28 05/07/22 05/07/22 05/07/22 05/07/22 06:55 07:45 08:14 08:30 Temp 36.6 36.6 36.5 Pulse 96 75 75 80 Resp 20 20 20 B/P (MAP) 122/57 (78) 122/57 132/70 Pulse Ox 96 96 98 O2 Delivery Room Air Room Air Room Air 05/07/22 10:51 O2 Delivery Room Air Capillary Refill : Less Than 3 Seconds Temperature (Fahrenheit): 97.8 General Appearance: WD/WN, no apparent distress, obese Neck: supple, normal inspection Respiratory: chest non-tender, lungs clear, no respiratory distress, no accessory muscle use, decreased breath sounds Cardiovascular: regular rate, rhythm, no edema, no gallop, no JVD, no murmur, other (Diminished heart sounds) Gastrointestinal: normal bowel sounds, non tender, soft, no organomegaly, no pulsatile mass Back: normal inspection Extremities: normal range of motion, normal inspection Neurologic/Psychiatric: no motor/sensory deficits, alert, normal mood/affect, oriented x 3 Skin: normal color, warm/dry Assessment/Plan Assessment/Plan Admission Dx Anemia Admission Status: Observation Assessment & Plan Anemia - Blood transfusion (leukocyte reduced RBC) [address] Bray is waiting for post-transfusion labs to decide whether a scope is necessary as the patient took eliquis and plavix the previous morning. Sore throat - patient was prescribed clindamycin Atrial fibrillation - hold eliquis and plavix until anemia resolves Congestive Heart Failure - continue medical management COPD - fluticasone/salmeterol Emphysema - continue medical management, supplemental oxygen Diabetes mellitus - Insulin aspart and glargine, close glucose monitoring Clinical Quality Measures End of Life/Advance Care Plan: Advance Care discuss with: patient (Patient wishes to be changed from DNR status to full code) Admission Status Admission Dx Anemia Admission Status: Observation DVT/VTE Prophylaxis Comfirm.Dx Pharmacological not ordered: Aneurysm, Active bleeding (Possible active bleed of unknown origin), Risk of Bleeding ASHLEIGH COELLO MD 05/07/22 1357: Home Medications Allergies Coded Allergies: lisinopril (Verified Allergy, Mild, 01/15/21) MUSCLE ACHES losartan (Verified Allergy, Mild, Rash, 01/15/21) lovastatin (Verified Allergy, Mild, 01/15/21) MUSCLE ACHES rosiglitazone (Verified Allergy, Mild, Hives, 01/15/21) umeclidinium (Verified Allergy, Mild, Rash, 01/15/21) Review of Systems ([facility]) Constitutional: No chills; dizziness (When standing), malaise EENTM: hoarseness, throat pain, other (Painful swallowing); No nose congestion, No nose pain Respiratory: No cough; dyspnea on exertion (with any activity), short of breath Cardiovascular: No chest pain, No palpitations Genitourinary: no symptoms reported; No dysuria, No frequency, No hematuria Musculoskeletal: no symptoms reported; No back pain, No joint pain, No muscle pain Skin: no symptoms reported Psychiatric/Neurological: No Symptoms Reported Reviewed Test Results Reviewed Test Results Lab Laboratory Tests Test 05/06/22 20:07 05/07/22 05:00 05/07/22 05:08 05/07/22 11:32 Range/Units Glucometer 273 H 134 H 161 H 70-110 MG/DL White Blood Count 10.6 4.3-11.0 10^3/uL Red Blood Count 3.83 L 4.30-5.52 10^6/uL Hemoglobin 5.9 *L 13.3-17.7 g/dL Hematocrit 23 L 40-54 % Mean Corpuscular Volume 60 L 80-99 fL Mean Corpuscular Hemoglobin 15 L 25-34 pg Mean Corpuscular Hemoglobin Concent 26 L 32-36 g/dL Red Cell Distribution Width 20.7 H 10.0-14.5 % Platelet Count 381 130-400 10^3/uL Mean Platelet Volume 10.0 9.0-12.2 fL Immature Granulocyte % (Auto) 2 % Neutrophils (%) (Auto) 70 42-75 % Lymphocytes (%) (Auto) 17 12-44 % Monocytes (%) (Auto) 7 0-12 % Eosinophils (%) (Auto) 4 0-10 % Basophils (%) (Auto) 1 0-10 % Neutrophils # (Auto) 7.4 1.8-7.8 10^3/uL Lymphocytes # (Auto) 1.7 1.0-4.0 10^3/uL Monocytes # (Auto) 0.8 0.0-1.0 10^3/uL Eosinophils # (Auto) 0.4 H 0.0-0.3 10^3/uL Basophils # (Auto) 0.1 0.0-0.1 10^3/uL Immature Granulocyte # (Auto) 0.2 H 0.0-0.1 10^3/uL Sodium Level 137 135-145 MMOL/L Potassium Level 3.9 3.6-5.0 MMOL/L Chloride Level 104 98-107 MMOL/L Carbon Dioxide Level 24 21-32 MMOL/L Anion Gap 9 5-14 MMOL/L Blood Urea Nitrogen 15 7-18 MG/DL Creatinine 1.02 0.60-1.30 MG/DL Estimat Glomerular Filtration Rate 76 BUN/Creatinine Ratio 15 Glucose Level 120 H 70-105 MG/DL Calcium Level 8.6 8.5-10.1 MG/DL Corrected Calcium 9.2 8.5-10.1 MG/DL Total Bilirubin 0.6 0.1-1.0 MG/DL Aspartate Amino Transf (AST/SGOT) 20 5-34 U/L Alanine Aminotransferase (ALT/SGPT) 11 0-55 U/L Alkaline Phosphatase 65 40-136 U/L Total Protein 6.3 L 6.4-8.2 GM/DL Albumin 3.3 3.2-4.5 GM/DL Triglycerides Level 74 <150 MG/DL Cholesterol Level 104 < 200 MG/DL LDL Cholesterol Direct 68 1-129 MG/DL VLDL Cholesterol 15 5-40 MG/DL HDL Cholesterol 26 L 40-60 MG/DL Physical Exam-([facility]) Physical Exam General Appearance: WD/WN, no apparent distress HEENT: PERRL/EOMI Neck: non-tender, supple, normal inspection Respiratory: no respiratory distress, no accessory muscle use, wheezing Cardiovascular: normal peripheral pulses, regular rate, rhythm, no murmur Gastrointestinal: normal bowel sounds, non tender, soft Back: no CVA tenderness, no vertebral tenderness Extremities: normal range of motion, non-tender, normal inspection, no calf tenderness, normal capillary refill Neurologic/Psychiatric: business development engineer II-XII nml as tested, no motor/sensory deficits, alert, normal mood/affect, oriented x 3 Skin: normal color, warm/dry Lymphatic: no adenopathy Supervisory-Addendum Brief Verification & Attestation Participated in pt care: history, physical Personally performed: exam, history Care discussed with: Medical Student Procedures: n/a Verification and Attestation of Medical Student E/M Service A medical student performed and documented this service in my presence. I reviewed and verified all information documented by the medical student and made modifications to such information, when appropriate. I personally performed the physical exam and medical decision making. Ashleigh Coello, May 07, 2022,14:21 Chest Pain/Angina - Likely 2/2 to severe anemia, cardiology consult, appreciate recommendations Severe Anemia, unsure of cause - Holding OAC, Occult stool pending, Consult general surgery, 1 unit pRBCs given, repeat H/H this afternoon A fib rate controlled, on OAC - OAC on hold IDDM - Continue home insulin, SSI, Accuchecks HTN - holding BPs meds due to severe anemia COPD - Continue home meds h/o TIA/CVA RAMÍREZ BERMEO May 07, 2022 11:52 ASHLEIGH COELLO MD May 07, 2022 13:57
--- NOTE | 2022-05-07 14:01 | Diagnostic Imaging Report ---
INDICATION: Abdominal pain and swelling, history of abdominal aortic stent graft for abdominal aortic aneurysm. TECHNIQUE: Multiple contiguous axial images were obtained through the abdomen and pelvis after the uneventful bolus administration of intravenous contrast. Sagittal and coronal MIP reconstructions with then performed. All CT scans use one or more of the following dose optimizing techniques: Automated exposure control, MA and/or KvP adjustment based on patient size and exam type or iterative reconstruction. Comparison made to prior CT of 06/05/2021. FINDINGS: The visualized portions of the lung bases are clear. There were no pleural fluid collections. There is no free intraperitoneal air. The liver shows no focal lesion. There are multiple gallstones in the gallbladder. The spleen, adrenals, and pancreas are normal. The kidneys bilaterally are unremarkable except for a small cyst in the right kidney. There is no retroperitoneal mass or adenopathy. There is no ascites. Visualized bowel loops show no sign of obstruction. There is no focal bowel wall thickening. There is a small periumbilical hernia containing fat. CTA images demonstrate abdominal aortic aneurysm with stent graft device in place. Celiac trunk is patent and without stenosis. There is a normal variant with the right hepatic artery arising directly from the arch. The superior mesenteric artery is patent and without stenosis. There are single renal arteries bilaterally which are patent and without stenosis. Stent graft is seen from the infrarenal abdominal aorta, terminating in the left distal common iliac artery on the left side, and on the right side, there is extension of the stent graft into the internal and external iliac arteries. The external iliac arteries and common femoral arteries and femoral bifurcations are patent. There is evidence of endoleak with contrast in the inferior portion of the aneurysm sac. This was also the case on previous CT of 06/05/2021. Maximal aortic aneurysm sac diameter was 4.3 x 4.5 cm, this is unchanged compared to my measurements on the previous study. Delayed images demonstrate patency of the hepatic veins and portal vein and splenic vein and SMV. IMPRESSION: Abdominal aortic aneurysm with stent graft device in place as above. There is a small endoleak in the aneurysm sac inferiorly, but aneurysm sac appears stable in size measuring 4.5 x 4.3 cm. There is no major aortic branch stenosis. There are incidental gallstones in the gallbladder. There is no abdominal mass or abnormal fluid collection or sign of bowel obstruction or bowel wall thickening. There is a fat-containing periumbilical hernia. Dictated by: Dictated on workstation # [id number]
[2022-05-07 15:08] LABS: HEMOGLOBIN 6.9 g/dL (13.3-17.7)
--- NOTE | 2022-05-07 18:04 | Consultation - Surgery ---
History of Present Illness History of Present Illness Patient Consulted On(endy/time) 05/07/22 17:56 Date Seen by Provider: May 07, 2022 Time Seen by Provider: 07:20 Reason for Visit: Chest pain History of Present Illness Consult requested by Dr. Esparza for anemia. Patient is a 77 year old male who presented to ER due to neck pain. He was found to be anemic. He denies any blood in his stools. He has been having some lower abdominal discomfort, also epigastric discomfort as well. He is on anticoagulation and antiplatelets. Hgb was down to 5.9. Patient getting transfusion. Patient states nothing makes pains better or worse. Denies n/v fever sweats chills shortness of breath or chest pain. 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 Allergies and Home Medications Allergies Coded Allergies: lisinopril (Verified Allergy, Mild, 01/15/21) MUSCLE ACHES losartan (Verified Allergy, Mild, Rash, 01/15/21) lovastatin (Verified Allergy, Mild, 01/15/21) MUSCLE ACHES rosiglitazone (Verified Allergy, Mild, Hives, 01/15/21) umeclidinium (Verified Allergy, Mild, Rash, 01/15/21) Patient Home Medication List Home Medication List Reviewed: Yes Albuterol Sulfate (Proair Hfa) 1 Puff Puff, 2 PUFF IH Q4H PRN for SHORTNESS OF BREATH, (Reported) Entered as Reported by: DAVID SADLER on 01/15/21 1043 Last Action: Reviewed Apixaban (Eliquis) 5 Mg Tablet, 5 MG PO BID, (Reported) Entered as Reported by: DAVID SADLER on 01/15/21 1043 Last Action: Reviewed Aspirin (Aspirin EC) 81 Mg Tablet.dr, 81 MG PO DAILY, (Reported) Entered as Reported by: CHARLIE GIRON on 05/07/22 1054 Last Action: Reviewed Clopidogrel Bisulfate (Clopidogrel) 75 Mg Tablet, 75 MG PO DAILY, (Reported) Entered as Reported by: DAVID SADLER on 01/15/21 1043 Last Action: Reviewed Diltiazem HCl (Diltiazem ER) 120 Mg Capsule.er, 120 MG PO DAILY, (Reported) Entered as Reported by: CHARLIE GIRON on 05/07/22 1048 Last Action: Reviewed Dronedarone HCl (Multaq) 400 Mg Tablet, 400 MG PO BID, (Reported) Entered as Reported by: CHARLIE GIRON on 06/06/211123 Last Action: Reviewed Fenofibrate Nanocrystallized (Fenofibrate) 145 Mg Tablet, 145 MG PO DAILY, (Reported) Entered as Reported by: DAVID SADLER on 01/15/211042 Last Action: Reviewed Fluticasone Propionate (Fluticasone Propionate) 50 Mcg/Actuation [place].susp, 2 SPRAYS NSEACH DAILY PRN for CONGESTION, (Reported) Entered as Reported by: CHARLIE GIRON on 06/06/211123 Last Action: Reviewed Fluticasone/Salmeterol (Advair 250-50 Diskus) 250 Mcg-50 Mcg/Dose Blst.w.dev, 1 EACH IH BID, (Reported) Entered as Reported by: CHARLIE GIRON on 05/07/221047 Last Action: Reviewed Furosemide (Furosemide) 40 Mg Tablet, 40 MG PO DAILY, (Reported) Entered as Reported by: CHARLIE GIRON on 05/07/221047 Last Action: Reviewed Insulin Aspart (Novolog Flexpen) 100 Unit/Ml (3 Ml) Solution, 28 UNITS SQ AC, (Reported) Entered as Reported by: DAVID SADLER on 01/15/211042 Last Action: Reviewed Insulin Glargine,Hum.rec.anlog (Basaglar Kwikpen U-100) 100 Unit/Ml (3 Ml) Insuln.pen, 65 UNIT SQ BID, (Reported) Entered as Reported by: DAVID SADLER on 01/15/211042 Last Action: Reviewed Metoprolol Succinate (Metoprolol Succinate) 50 Mg Tab.er.24h, 50 MG PO DAILY, (Reported) Entered as Reported by: DAVID SADLER on 01/15/211042 Last Action: Reviewed Montelukast Sodium (Montelukast Sodium) 10 Mg Tablet, 10 MG PO HS, (Reported) Entered as Reported by: DAVID SADLER on 01/15/211042 Last Action: Reviewed Omeprazole (Omeprazole) 20 Mg Capsule.dr, 20 MG PO DAILY, (Reported) Entered as Reported by: DAVID SADLER on 01/15/211042 Last Action: Reviewed Pregabalin (Pregabalin) 100 Mg Capsule, 100 MG PO 0000,0600,1800, (Reported) Entered as Reported by: DAVID SADLER on 01/15/21 1043 Last Action: Reviewed Rosuvastatin Calcium (Rosuvastatin Calcium) 40 Mg Tablet, 40 MG PO DAILY, (Reported) Entered as Reported by: DAVID SADLER on 01/15/21 1043 Last Action: Reviewed Spironolactone (Spironolactone) 25 Mg Tablet, 25 MG PO DAILY, (Reported) Entered as Reported by: CHARLIE GIRON on 06/06/21 1124 Last Action: Reviewed Discontinued Medications Cyclobenzaprine HCl (Cyclobenzaprine HCl) 10 Mg Tablet, 10 MG PO BID Discontinued Reason: No Longer Taking Prescribed by: ANTHONY BRANCH on 06/10/211054 Last Action: Discontinued Diltiazem HCl (Diltiazem 24Hr ER) 120 Mg Cap.er.24h, 120 MG PO DAILY, (Reported) Discontinued Reason: Duplicate Order Entered as Reported by: CHARLIE GIRON on 06/06/211123 Last Action: Discontinued Doxycycline Hyclate (Doxycycline Hyclate) 100 Mg Tablet, 100 MG PO BID Discontinued Reason: No Longer Taking Prescribed by: ANTHONY BRANCH on 06/10/211054 Last Action: Discontinued Fluticasone/Salmeterol (Fluticasone-Salmeterol 113-14) 1 Each Aer.pow.ba, 0 EACH IH RTBID Discontinued Reason: Duplicate Order Prescribed by: ANTHONY BRANCH on 06/10/211054 Last Action: Discontinued Fluticasone/Salmeterol (Advair 250-50 Diskus) 1 Each Blst.w.dev, 1 EACH IH BID Discontinued Reason: Duplicate Order Prescribed by: ANTHONY BRANCH on 06/10/21 1334 Last Action: Discontinued Furosemide (Furosemide) 40 Mg Tablet, 40 MG PO DAILY Discontinued Reason: Duplicate Order Prescribed by: ANTHONY BRANCH on 06/10/211054 Last Action: Discontinued Guaifenesin (Mucinex) 600 Mg Tab.er.12h, 600 MG PO BID Discontinued Reason: No Longer Taking Prescribed by: ANTHONY BRANCH on 06/10/211054 Last Action: Discontinued Hydrocodone/Acetaminophen (Hydrocodone-Acetamin 7.5-325) 1 Each Tablet, 1 EA PO Q6H PRN for PAIN-MODERATE (5-7), (Reported) Discontinued Reason: No Longer Taking Entered as Reported by: CHARLIE GIRON on 06/06/21 1124 Last Action: Discontinued Potassium Chloride (Potassium Chloride) 10 Meq Tab.er.prt, 10 MEQ PO DAILY Discontinued Reason: No Longer Taking Prescribed by: ANTHONY BRANCH on 06/10/21 1055 Last Action: Discontinued Prednisone (Prednisone) 10 Mg Tab.ds.pk, 10 MG PO DAILY Discontinued Reason: No Longer Taking Prescribed by: ANTHONY BRANCH on 06/10/21 1055 Last Action: Discontinued Past Njazbpu-Yohxvl-Xqrfym Hx Patient Social History Smoking Status: Former Smoker (Quit smoking 3 years ago after smoking since he was 11. (63 year smoking history)) Type Used: Smokeless Tobacco Recent Hopitalizations: Yes (3 WEEKS AGO ABD ANEURYSM REPAIR) Alcohol Use?: No Have you traveled recently?: No Immunizations Up To Date Date of Influenza Vaccine: Jun 06, 2020 Surgeries Surgeries: Appendectomy Respiratory History of Respiratory Disorde: Yes Respiratory Disorders: Emphysema Cardiovascular History of Cardiac Disorders: Yes Cardiac Disorders: Atrial Fibrillation, Coronary Artery Disease, High Cholesterol, Hypertension Neurological History of Neurological Disord: Yes Neurological Disorders: TIA Genitourinary History of Genitourinary Disor: No Gastrointestinal History of Gastrointestinal Di: Yes Gastrointestinal Disorders: Gastroesophageal Reflux Cancer History of Cancer: Yes Cancer: Skin Blood Transfusions History of Blood Disorders: No Reviewed Nursing Assessment Reviewed/Agree w Nursing PMH: Yes Family Medical History Significant Family History: No Pertinent Family Hx Review of Systems-General Constitutional: No chills, No diaphoresis EENTM: No blurred vision, No double vision Respiratory: No cough, No dyspnea on exertion Cardiovascular: No chest pain, No edema Gastrointestinal: abdominal pain; No nausea, No vomiting Genitourinary: No decreased output, No discharge Musculoskeletal: No back pain, No joint pain Skin: No change in color, No change in hair/nails Psychiatric/Neurological: Denies Anxiety, Denies Depressed, Denies Emotional Problems All Other Systems Reviewed Negative Unless Noted: Yes (Negative excepted noted.) Physical Exam-General Problems Physical Exam Vital Signs Vital Signs - First Documented 05/06/22 05/06/22 05/06/22 11:25 16:58 20:20 Temp 36.2 Pulse 76 Resp 20 B/P (MAP) 150/67 (94) Pulse Ox 95 O2 Delivery Room Air O2 Flow Rate 2.00 FiO2 28 Capillary Refill : Less Than 3 Seconds General Appearance: no apparent distress, obese HEENT: PERRL/EOMI, normal ENT inspection Neck: non-tender, supple Respiratory: chest non-tender, no respiratory distress Cardiovascular: regular rate, rhythm, no JVD Gastrointestinal: soft, tenderness (minimal more in the epigastric region) Rectal: deferred Back: normal inspection, no CVA tenderness Extremities: normal range of motion, normal inspection Neurologic/Psychiatric: alert, normal mood/affect, oriented x 3 Skin: warm/dry, pallor Lymphatic: no adenopathy Data Review Labs Laboratory Tests 05/06/22 20:07: Glucometer 273H 05/07/22 05:00: White Blood Count 10.6, Red Blood Count 3.83L, Hemoglobin 5.9*L, Hematocrit 23L, Mean Corpuscular Volume 60L, Mean Corpuscular Hemoglobin 15L, Mean Corpuscular Hemoglobin Concent 26L, Red Cell Distribution Width 20.7H, Platelet Count 381, Mean Platelet Volume 10.0, Immature Granulocyte % (Auto) 2, Neutrophils (%) (Auto) 70, Lymphocytes (%) (Auto) 17, Monocytes (%) (Auto) 7, Eosinophils (%) (Auto) 4, Basophils (%) (Auto) 1, Neutrophils # (Auto) 7.4, Lymphocytes # (Auto) 1.7, Monocytes # (Auto) 0.8, Eosinophils # (Auto) 0.4H, Basophils # (Auto) 0.1, Immature Granulocyte # (Auto) 0.2H, Sodium Level 137, Potassium Level 3.9, Chloride Level 104, Carbon Dioxide Level 24, Anion Gap 9, Blood Urea Nitrogen 15, Creatinine 1.02, Estimat Glomerular Filtration Rate 76, BUN/Creatinine Ratio 15, Glucose Level 120H, Calcium Level 8.6, Corrected Calcium 9.2, Total Bilirubin 0.6, Aspartate Amino Transf (AST/SGOT) 20, Alanine Aminotransferase (ALT/SGPT) 11, Alkaline Phosphatase 65, Total Protein 6.3L, Albumin 3.3, Triglycerides Level 74, Cholesterol Level 104, LDL Cholesterol Direct 68, VLDL Cholesterol 15, HDL Cholesterol 26L 05/07/22 05:08: Glucometer 134H 05/07/22 11:32: Glucometer 161H 05/07/22 15:01: Hemoglobin 6.9*L, Hematocrit 26L 05/07/22 15:33: Glucometer 128H Assessment/Plan Assessment/Plan Assessment/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 Esparza and would like to have EGD tomorrow. Patient discussed risks and benefits and to be scheduled NPO If no source will need colonoscopy inpatient vs outpatient would like to hold antiplatelets though 5 days if needed. Clinical Quality Measures DVT/VTE Prophylaxis Comfirm.Dx Pharmacological not ordered: Aneurysm, Active bleeding (Possible active bleed of unknown origin), Risk of Bleeding BECKIE CARRION DO May 07, 2022 18:04
[2022-05-07 20:54] LABS: BILIRUBIN,URINE NEGATIVE (NEGATIVE); CLARITY,URINE CLEAR; COLOR,URINE YELLOW; GLUCOSE, URINE (UA) 3+ (NEGATIVE); KETONES,URINE NEGATIVE (NEGATIVE); LEUKOCYTE ESTERASE ,URINE NEGATIVE (NEGATIVE); NITRITE,URINE NEGATIVE (NEGATIVE); PH,URINE 5.5 (5-9); PROTEIN,URINE NEGATIVE (NEGATIVE)
[2022-05-07 21:02] LABS: BACTERIA,URINE NEGATIVE /HPF
[2022-05-08] VITALS (8 sets, daily range): BP systolic 136–164; BP diastolic 63–82
[2022-05-08 01:12] LABS: HEMOGLOBIN 7.4 g/dL (13.3-17.7)
[2022-05-08 06:41] LABS: HEMATOCRIT 29 % (40-54); HEMOGLOBIN 7.9 g/dL (13.3-17.7); MEAN CORPUSCULAR HEMOGLOBIN 17 pg (25-34); MEAN CORPUSCULAR HGB CONC 27 g/dL (32-36); MEAN CORPUSCULAR VOLUME 64 fL (80-99)
[2022-05-08 06:43] LABS: BASOPHILS # (AUTO) 0.1 10^3/uL (0.0-0.1); BASOPHILS % (AUTO) 1 % (0-10); EOSINOPHILS # (AUTO) 0.5 10^3/uL (0.0-0.3); EOSINOPHILS % (AUTO) 6 % (0-10); LYMPHOCYTES # (AUTO) 1.9 10^3/uL (1.0-4.0); LYMPHOCYTES % (AUTO) 23 % (12-44); MEAN PLATELET VOLUME 9.8 fL (9.0-12.2); MONOCYTES # (AUTO) 0.8 10^3/uL (0.0-1.0); MONOCYTES % (AUTO) 9 % (0-12); NEUTROPHILS # (AUTO) 4.7 10^3/uL (1.8-7.8); NEUTROPHILS % (AUTO) 59 % (42-75); PLATELET COUNT 403 10^3/uL (130-400)
[2022-05-08 06:53] LABS: ALBUMIN 3.6 GM/DL (3.2-4.5); POTASSIUM 3.9 MMOL/L (3.6-5.0)
[2022-05-08 06:54] LABS: CALCIUM 9.1 MG/DL (8.5-10.1)
[2022-05-08 06:56] LABS: TOTAL PROTEIN 6.9 GM/DL (6.4-8.2)
[2022-05-08 06:58] LABS: BILIRUBIN,TOTAL 0.7 MG/DL (0.1-1.0)
[2022-05-08 06:59] LABS: CREATININE SERUM 1.01 MG/DL (0.60-1.30)
--- NOTE | 2022-05-08 07:40 | Progress Note - Surgery ---
PAULO MATTHEWS 05/08/22 0740: Subjective Date Seen by a Provider: May 08, 2022 Time Seen by a Provider: 07:37 Subjective/Events-last exam Pt is awake and alert this morning. He reports having abdominal pain and had tenderness in the epigastric area on palpation.Patient's tongue is swollen, he reports that this started about ten days ago. Review of Systems General: No Chills, No Night Sweats HEENT: No Head Aches, No Visual Changes Pulmonary: No Dyspnea, No Cough Cardiovascular: No: Chest Pain, Palpitations Gastrointestinal: No: Nausea, Vomiting Genitourinary: No Dysuria, No Frequency Musculoskeletal: No: neck pain, shoulder pain Neurological: Weakness, Numbness Objective Exam Vital Signs Date Time Temp Pulse Resp B/P (MAP) Pulse Ox O2 Delivery O2 Flow Rate FiO2 05/08/22 03:38 35.6 70 20 136/64 (88) 96 Nasal Cannula 2.00 05/08/22 01:00 74 05/07/22 23:13 36.2 84 20 158/73 96 Room Air 05/07/22 22:55 36.2 75 20 135/63 95 Room Air 05/07/22 20:21 35.8 81 20 137/71 98 Nasal Cannula 2.00 05/07/22 19:57 35.8 81 20 143/79 100 Nasal Cannula 2.00 05/07/22 19:17 35.3 80 20 140/69 (92) 97 Room Air 05/07/22 19:00 84 05/07/22 15:31 36.3 77 20 132/62 (85) 99 Nasal Cannula 2.00 05/07/22 12:04 36.5 78 18 146/77 (100) 98 Room Air 05/07/22 10:51 Room Air 05/07/22 08:30 36.5 80 20 132/70 98 Room Air 05/07/22 08:14 36.6 75 20 122/57 96 Room Air 05/07/22 07:45 36.6 75 20 122/57 (78) 96 Room Air I & O 05/08/22 07:00 Intake Total 1610 ml Output Total 3035 ml Balance -1425 ml Capillary Refill : Less Than 3 Seconds General Appearance: No Apparent Distress, WD/WN HEENT: PERRL/EOMI, TMs Normal, Normal ENT Inspection, Pharynx Normal, Moist Mucous Membranes Neck: Full Range of Motion, Normal Inspection, Non Tender, Supple, Carotid Bruit Respiratory: Chest Non Tender, Lungs Clear, Normal Breath Sounds, No Accessory Muscle Use, No Respiratory Distress Cardiovascular: Regular Rate, Rhythm, No Edema, No JVD, Normal Peripheral Pulses, Systolic Murmur, Gallop/S3 Gastrointestinal: soft, tenderness (minimal more in the epigastric region) Extremity: Normal Capillary Refill, Normal Inspection, Normal Range of Motion, Non Tender, No Calf Tenderness, No Pedal Edema Neurologic/Psychiatric: Alert, Oriented x3, No Motor/Sensory Deficits, Normal Mood/Affect Skin: Warm/Dry, Pallor Lymphatic: No Adenopathy Results Lab Laboratory Tests 05/07/22 11:32: Glucometer 161H 05/07/22 15:01: Hemoglobin 6.9*L, Hematocrit 26L 05/07/22 15:33: Glucometer 128H 05/07/22 19:24: Glucometer 295H 05/07/22 20:31: Urine Color YELLOW, Urine Clarity CLEAR, Urine pH 5.5, Urine Specific [place] <=1.005, Urine Protein NEGATIVE, Urine Glucose (UA) 3+H, Urine Ketones NEGATIVE, Urine Nitrite NEGATIVE, Urine Bilirubin NEGATIVE, Urine Urobilinogen 0.2, Urine Leukocyte Esterase NEGATIVE, Urine RBC (Auto) NEGATIVE, Urine RBC NONE, Urine WBC NONE, Urine Squamous Epithelial Cells NONE, Urine Crystals NONE, Urine Bacteria NEGATIVE, Urine Casts NONE, Urine Mucus NEGATIVE, Urine Culture Indicated NO 05/07/22 22:04: Glucometer 226H 05/07/22 23:10: Stool Occult Blood Immunoassay POSITIVE 05/08/22 01:05: Hemoglobin 7.4L, Hematocrit 27L 05/08/22 05:42: White Blood Count 8.0, Red Blood Count 4.57, Hemoglobin 7.9L, Hematocrit 29L, Mean Corpuscular Volume 64L, Mean Corpuscular Hemoglobin 17L, Mean Corpuscular Hemoglobin Concent 27L, Red Cell Distribution Width 23.8H, Platelet Count 403H, Mean Platelet Volume 9.8, Immature Granulocyte % (Auto) 2, Neutrophils (%) (Auto) 59, Lymphocytes (%) (Auto) 23, Monocytes (%) (Auto) 9, Eosinophils (%) (Auto) 6, Basophils (%) (Auto) 1, Neutrophils # (Auto) 4.7, Lymphocytes # (Auto) 1.9, Monocytes # (Auto) 0.8, Eosinophils # (Auto) 0.5H, Basophils # (Auto) 0.1, Immature Granulocyte # (Auto) 0.2H, Percent Immature Platelet Fraction 3.7, Sodium Level 139, Potassium Level 3.9, Chloride Level 105, Carbon Dioxide Level 25, Anion Gap 9, Blood Urea Nitrogen 10, Creatinine 1.01, Estimat Glomerular Filtration Rate 77, BUN/Creatinine Ratio 10, Glucose Level 147H, Calcium Level 9.1, Corrected Calcium 9.4, Total Bilirubin 0.7, Aspartate Amino Transf (AST/SGOT) 26, Alanine Aminotransferase (ALT/SGPT) 16, Alkaline Phosphatase 63, Total Protein 6.9, Albumin 3.6 05/08/22 06:29: Glucometer 172H Assessment/Plan Assessment/Plan Assessment/Plan anemia retirement use antiplatelet/anticoagulation history of endoleak from aortic/iliac stenting abdominal pain lower abdomen and epigastric area hold antiplatelet/anticoagulation transfuse prbc as needed and follow Protonix in case ulcer cause of bleeding discussed with Dr. Esparza and would like to have EGD today. Patient discussed risks and benefits and to be scheduled NPO If no source will need colonoscopy inpatient vs outpatient would like to hold antiplatelets though 5 days if needed. Clinical Quality Measures DVT/VTE Prophylaxis Comfirm.Dx Pharmacological not ordered: Aneurysm, Active bleeding (Possible active bleed of unknown origin), Risk of Bleeding BECKIE MEYER DO 05/08/22 1458: Subjective Subjective/Events-last exam Patient still with epigastric pain. Hgb up slightly. Transfused yesterday. No other complaints. Denies n/v fever sweats chills shortness of breath or chest pain. Objective Exam General Appearance: No Apparent Distress, WD/WN HEENT: PERRL/EOMI, Normal ENT Inspection Neck: Non Tender, Supple Respiratory: Chest Non Tender, No Accessory Muscle Use, No Respiratory Distress Cardiovascular: Regular Rate, Rhythm, No JVD Gastrointestinal: soft, tenderness (minimal more in the epigastric region), hernia (umbilical) Extremity: Normal Inspection, Non Tender Neurologic/Psychiatric: Alert, Oriented x3 Skin: Warm/Dry, Pallor Lymphatic: No Adenopathy Assessment/Plan Assessment/Plan Assessment/Plan anemia retirement use antiplatelet/anticoagulation history of endoleak from aortic/iliac stenting abdominal pain lower abdomen and epigastric area hold antiplatelet/anticoagulation transfuse prbc as needed and follow Protonix in case ulcer cause of bleeding EGD today. Patient discussed risks and benefits and to be scheduled NPO If no source will need colonoscopy inpatient vs outpatient would like to hold antiplatelets though 5 days if needed. Supervisory-Addendum Brief Verification & Attestation Participated in pt care: history, MDM, physical Personally performed: exam, history, MDM, supervision of care Care discussed with: Medical Student Procedures: n/a Results interpretation: Verified all documentation Verification and Attestation of Medical Student E/M Service A medical student performed and documented this service in my presence. I reviewed and verified all information documented by the medical student and made modifications to such information, when appropriate. I personally performed the physical exam and medical decision making. Beckie Meyer, May 08, 2022,15:00 PAULO MATTHEWS May 08, 2022 07:40 BECKIE MEYER DO May 08, 2022 14:58
[2022-05-08] MEDS: PANTOPRAZOLE 40 MG (PROTONIX) VIAL IV SCH ×2 (08:50→20:32)
--- NOTE | 2022-05-08 08:58 | Cardiology Progress Note ---
Subjective Date Seen by Provider: May 08, 2022 Time Seen by Provider: 08:57 Subjective/Events-last exam Patient is sitting in bed, feeling well. Still having lower abdominal pain. Review of Systems General: No Chills, No Night Sweats; Fatigue; No Malaise, No Appetite, No Other HEENT: No Head Aches, No Visual Changes, No Eye Pain, No Ear Pain, No Dysphasia, No Sinus Congestion, No Post Nasal Drip, No Sore Throat, No Other Pulmonary: No Dyspnea, No Cough, No Pleuritic Chest Pain, No Other Cardiovascular: No: Chest Pain, Palpitations, Orthopnea, Paroxysmal Noc. Dyspnea, Edema, Lt Headedness, Other Objective-Cardiology Exam Last Set of Vital Signs Vital Signs 05/06/22 05/08/22 20:20 08:42 Temp 35.2 Pulse 67 Resp 19 B/P (MAP) 147/70 (95) Pulse Ox 98 O2 Delivery Nasal Cannula O2 Flow Rate 2.00 FiO2 28 I&O Intake and Output 05/08/22 00:00 Intake Total 1910 ml Output Total 3110 ml Balance -1200 ml Intake Oral 1910 ml Output Urine Total 3110 ml General: Alert, Oriented X3, Cooperative HEENT: Atraumatic, PERRLA Neck: Supple, No JVD, No Thyromegaly Lungs: Clear to Auscultation, Normal Air Movement Heart: Regular Rate, Normal S1, Normal S2, Other (Systolic murmur at the left sternal border) Abdomen: Normal Bowel Sounds, Soft, No Tenderness, No Hepatosplenomegaly, No Masses Extremities: No Clubbing, No Cyanosis, No Edema, Normal Pulses, No Tenderness/Swelling Skin: No Rashes, No Breakdown, No Significant Lesion Neuro: Normal Gait, Normal Speech, Strength at 5/5 X4 Ext, Normal Tone, Sensation Intact Psych/Mental Status: Mental Status NL, Mood NL Results Lab Laboratory Tests 05/07/22 15:01 05/08/22 01:05 05/08/22 05:42 A/P-Cardiology Admission Diagnosis Chest pain Anemia Coronary artery disease Paroxysmal atrial fibrillation Assessment/Plan Chest pain, unstable angina, most probably secondary to coronary artery disease and severe anemia. Feeling better at this point, reporting improvement in chest pain. Anemia, GI bleed, stool for occult blood is positive Discussed with Dr. Meyer and recommended endoscopy Received blood transfusion, continue to monitor H&H Paroxysmal atrial fibrillation, h/o failed cardioversion in January 2021, had another cardioversion on 02.05.[address] Cornejo at [facility], Maintained on Eliquis, Milady GIBSON, Romelia. I will hold Eliquis for now and monitor [id number] score of 6, yearly risk of stroke without oral anticoagulation is over 6 percent, holding Eliquis and monitor Coronary artery disease, history of multiple interventions in the past, reporting that he had multiple stents done at [facility] in the remote past and he had under deployed stent. Has been on aspirin and Plavix, currently on hold. Abdominal aortic aneurysm, workup showed that the aneurysm measured 5 cm in the infrarenal abdominal aorta, he has bilateral iliac aneurysm, s/p AAA repair done by Dr. Urena in December 2020. Discussed with Dr. Meyer, will evaluate CT of the abdomen and pelvis. Patient reportedly in the lower extremity most probably around the aneurysm in the iliac artery Hypertension, restart home medication monitor blood pressure Hyperlipidemia, hypertriglyceridemia, maintained on fenofibrate and rosuvastatin. I will evaluate lipid profile Diabetes mellitus, followed and managed by primary care physician COPD/IVONNE, was intolerant to C Pap machine. Hospitalized last month for AE COPD. Will refer to communications equipment operator for further evaluation. History of multiple TIAs/CVA, maintained on Plavix and Eliquis Obesity, BMI 37, we discussed weight loss. Tobaccoism, stopped smoking 2 years ago, encouraged to continue with smoking cessation. TONIO LOPEZ MD May 08, 2022 08:58
[2022-05-08] MEDS ORDERED: LACTATED RINGERS 1,000 ML IV STA (14:09)
[2022-05-08] MEDS ORDERED: LACTATED RINGERS 1,000 ML IV ONE (14:15)
[2022-05-08] MEDS ORDERED: HURRICAINE EXT TUBE (BENZOCAINE) XX PRN (14:15)
--- NOTE | 2022-05-08 14:24 | Progress Note - Hospitalist ---
SOLA KHOURY 05/08/22 1424: Subjective HPI/CC On Admission Date Seen by Provider: May 08, 2022 Time Seen by Provider: 14:13 Subjective/Events-last exam Patient is a 77 year old male in with blood loss anemia. His hemoglobin as of today is 7.9 which is up from 6.9 on admission for which he received a transfusion. He was positive for stool occult blood, possibly due to past surgical history of abdominal aorta aneurysm stent placement (CT on 05-07-2022 showed small leak in aneurysm sac). He has mild epigastic pain for the last couple days, which he said was improved when given protonix. He also complains of diffuse stomach pain and his swollen tongue. He has not been sleeping well, and bowel movements are still diarrhea. He is awaiting decision on having a possible endoscopy today depending upon his hemoglobin levels. Per Dr. Meyer, if hemoglobin is stable they will postpone EGD for five days, if hemoglobin does not stabilize they will do EGD today. Objective Exam Vital Signs Vital Signs Date Time Temp Pulse Resp B/P (MAP) Pulse Ox O2 Delivery O2 Flow Rate FiO2 05/08/22 12:41 72 05/08/22 12:15 35.7 18 160/82 (108) 98 Room Air 05/08/22 09:00 2.00 05/06/22 20:20 28 Capillary Refill : Less Than 3 Seconds General Appearance: No Apparent Distress, WD/WN; No Anxious, No Chronically ill HEENT: Moist Mucous Membranes Neck: Full Range of Motion, Supple Respiratory: Chest Non Tender, Lungs Clear, Normal Breath Sounds Cardiovascular: No Gallop, No JVD, No Murmur Gastrointestinal: No No Pulsatile Mass, No Non Tender Rectal: Deferred Back: No No CVA Tenderness, No No Vertebral Tenderness Extremity: Normal Capillary Refill, Normal Inspection Neurologic/Psychiatric: Alert, Oriented x3, No Motor/Sensory Deficits Skin: Normal Color, Warm/Dry (Dry and exfoliated on both upper extremites) Lymphatic: No Adenopathy Results/Procedures Lab Laboratory Tests 05/07/22 15:01 05/08/22 01:05 05/08/22 05:42 Patient resulted labs reviewed. Assessment/Plan Assessment and Plan Assess & Plan/Chief Complaint Anemia (Positive stool for occult blood) Recheck hemoglobin and hematocrit Obtain EGD Supportive Care Insulin dependent diabetes mellitus Continue at home medications CHF Continue at home medications COPD A-Fib Glossitis History of abdominal aortic aneurysm with stent placement Clinical Quality Measures DVT/VTE Prophylaxis Comfirm.Dx Pharmacological not ordered: Aneurysm, Active bleeding (Possible active bleed of unknown origin), Risk of Bleeding MORAIMA BRANCH DO 05/09/22 0611: Subjective Subjective/Events-last exam Pt is doing a lot better Severe anemia has required transfusion, HgA1C is 7.9 now Scope will be performed soon Pt has a history of CHF, COPD, diabetes, hypertension, CAD, and afib Assessment/Plan Assessment and Plan Assess & Plan/Chief Complaint GIB monitoring Supervisory-Addendum Brief Verification & Attestation Participated in pt care: history, MDM, physical Personally performed: exam, history, MDM, supervision of care Care discussed with: Medical Student Procedures: n/a Results interpretation: Verified all documentation Verification and Attestation of Medical Student E/M Service A medical student performed and documented this service in my presence. I reviewed and verified all information documented by the medical student and made modifications to such information, when appropriate. I personally performed the physical exam and medical decision making. Moraima Branch May 09, 2022,06:10 SOLA KHOURY May 08, 2022 14:24 MORAIMA BRANCH DO May 09, 2022 06:11
[2022-05-08] MEDS ORDERED: KETAMINE 50 MG/5 ML SYRINGE ONE (14:46)
[2022-05-08] MEDS ORDERED: proPOfol 200 MG/20 ML (DIPRIVAN) VIAL IV ONE (14:46)
--- NOTE | 2022-05-08 15:53 | Progress Note-Post Operative ---
Post-Operative Progess Note Surgeon (s)/Sealing Machine Operator (s) Surgeon BECKIE CARRION DO Sealing Machine Operator: na Pre-Operative Diagnosis anemia, epigastric pain Post-Operative Diagnosis small hiatal hernia, erosive esophagitis, gastritis Procedure & Operative Findings Date of Procedure 05/08/22 Procedure Performed/Findings egd c biopsies Anesthesia Type per clinical haematologist Estimated Blood Loss Estimated blood loss (mL): none Specimens/Packing Specimens Removed antrum, ge BECKIE CARRION DO May 08, 2022 15:53
[2022-05-08] MEDS: SUCRALFATE 1 GM (CARAFATE) TAB PO SCH ×2 (17:21→20:32)
--- NOTE | 2022-05-09 01:13 | OPERATIVE REPORT ---
DATE OF SERVICE: 05/08/2022 PREOPERATIVE DIAGNOSIS: Anemia, epigastric abdominal pain. POSTOPERATIVE DIAGNOSES: Small hiatal hernia, risks of esophagitis, gastritis. 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 ESTIMATED BLOOD LOSS: None. COMPLICATIONS: None. PROCEDURE: EGD with biopsies. INDICATIONS: The patient is a 77-year-old male found to be anemic and having epigastric abdominal pain. He understands risks and benefits of procedure and wished to proceed. Consent was signed in the chart. DESCRIPTION OF PROCEDURE: The patient was taken to the endoscopy suite, placed in left lateral recumbent position. Timeout was performed. Scope was inserted in mouth, down the esophagus, stomach and into the duodenum without difficulty. No polyps, masses or ulcerations within the duodenum. Scope was slowly retracted back to stomach where it was further insufflated. A slight appearance of gastritis. No masses or ulcerations. Biopsy of the antrum was obtained. Scope was retroflexed noting a small hiatal hernia, no other pathology. Scope was returned to its normal position, slowly withdrawn to distal esophagus, had changes of erosive esophagitis. Biopsy of the GE junction was obtained. Scope was slowly retracted back to completely remove, noting no other pathology. The patient tolerated procedure well without any complications, taken to recovery room in stable condition. RECOMMENDATIONS: The patient with no active bleeding at the time of this, but he does have changed. There was an appearance of erosive esophagitis that was likely the cause of bleeding. We will add Carafate 1 gram four times a day. Continue on Protonix. The patient will follow up outpatient. Continue to monitor the blood level transfusing as needed. Job ID: [id number] DocumentID: [id number] Dictated Date: 05/08/2022 21:46:53 Plate Stacker Date: 05/09/2022 01:12:40 Dictated By: BECKIE MEYER DO
[2022-05-09 02:27] VITALS: BP 144/63
[2022-05-09 03:40] VITALS: BP 112/64
[2022-05-09] MEDS: SUCRALFATE 1 GM (CARAFATE) TAB PO SCH ×2 (05:15→11:30)
[2022-05-09 06:16] LABS: HEMOGLOBIN 7.6 g/dL (13.3-17.7); MEAN CORPUSCULAR HEMOGLOBIN 17 pg (25-34)
[2022-05-09 06:18] LABS: BASOPHILS # (AUTO) 0.1 10^3/uL (0.0-0.1); BASOPHILS % (AUTO) 1 % (0-10); EOSINOPHILS # (AUTO) 0.4 10^3/uL (0.0-0.3); EOSINOPHILS % (AUTO) 6 % (0-10); HEMATOCRIT 28 % (40-54); LYMPHOCYTES # (AUTO) 1.6 10^3/uL (1.0-4.0); LYMPHOCYTES % (AUTO) 23 % (12-44); MEAN CORPUSCULAR HGB CONC 27 g/dL (32-36); MEAN CORPUSCULAR VOLUME 63 fL (80-99); MONOCYTES # (AUTO) 0.6 10^3/uL (0.0-1.0); MONOCYTES % (AUTO) 9 % (0-12); NEUTROPHILS # (AUTO) 3.9 10^3/uL (1.8-7.8); NEUTROPHILS % (AUTO) 59 % (42-75); PLATELET COUNT 380 10^3/uL (130-400); WHITE BLOOD COUNT 6.7 10^3/uL (4.3-11.0)
[2022-05-09 06:34] LABS: ALBUMIN 3.4 GM/DL (3.2-4.5)
[2022-05-09 06:36] LABS: CALCIUM 8.9 MG/DL (8.5-10.1)
[2022-05-09 06:37] LABS: TOTAL PROTEIN 6.6 GM/DL (6.4-8.2)
[2022-05-09 06:39] LABS: BILIRUBIN,TOTAL 0.7 MG/DL (0.1-1.0)
[2022-05-09 06:40] LABS: CREATININE SERUM 0.96 MG/DL (0.60-1.30)
[2022-05-09 07:28] VITALS: BP 154/76
--- NOTE | 2022-05-09 08:01 | Progress Note - Hospitalist ---
Subjective HPI/CC On Admission Date Seen by Provider: May 09, 2022 Time Seen by Provider: 11:00 Objective Exam Vital Signs Vital Signs Date Time Temp Pulse Resp B/P (MAP) Pulse Ox O2 Delivery O2 Flow Rate FiO2 05/09/22 11:13 36.0 76 20 149/74 (99) 96 Room Air 05/09/22 09:17 2.00 05/06/22 20:20 28 Capillary Refill : Less Than 3 Seconds Results/Procedures Lab Laboratory Tests 05/09/22 05:28 Patient resulted labs reviewed. Assessment/Plan Assessment and Plan Assess & Plan/Chief Complaint GIB monitoring Clinical Quality Measures DVT/VTE Prophylaxis Comfirm.Dx Pharmacological not ordered: Aneurysm, Active bleeding (Possible active bleed of unknown origin), Risk of Bleeding ANTHONY BRANCH DO May 09, 2022 08:01
[2022-05-09] MEDS: PANTOPRAZOLE 40 MG (PROTONIX) VIAL IV SCH (08:39)
--- NOTE | 2022-05-09 10:03 | Progress Note - Surgery ---
KEVEN BRITTON 05/09/22 1003: Subjective Date Seen by a Provider: May 09, 2022 Time Seen by a Provider: 07:40 Subjective/Events-last exam Patient is doing well today. He still has lower abdominal pain at 3/10 but says it is much better than the day before. He is having constant nausea but has not vomited. Patient claimed his last bowel movement had blood in it. He is ambulating to use the restroom, he does not have an IS in the room. Tolerating liquid diet well. Review of Systems General: No Chills, No Night Sweats Pulmonary: No Dyspnea, No Cough Cardiovascular: No: Chest Pain Gastrointestinal: Nausea, Abdominal Pain; No: Vomiting Musculoskeletal: neck pain Objective Exam Vital Signs Date Time Temp Pulse Resp B/P (MAP) Pulse Ox O2 Delivery O2 Flow Rate FiO2 05/09/22 09:17 Nasal Cannula 2.00 05/09/22 07:28 36.2 75 20 154/76 (102) 95 Room Air 05/09/22 07:00 65 05/09/22 03:40 35.5 64 18 112/64 (80) 98 Room Air 05/09/22 02:27 35.4 73 94 05/09/22 01:00 67 05/08/22 23:27 89 05/08/22 23:17 35.4 73 18 144/63 (90) 94 Room Air 05/08/22 23:00 96 Nasal Cannula 2.00 05/08/22 19:04 36.4 79 20 144/74 (97) 98 OxyMask 4.00 05/08/22 19:00 80 05/08/22 16:00 36.5 88 16 146/77 (100) 95 Room Air 05/08/22 15:20 71 16 100 OxyMask 4.00 05/08/22 15:17 72 16 100 OxyMask 4.00 05/08/22 12:41 72 05/08/22 12:15 35.7 73 18 160/82 (108) 98 Room Air I & O 05/09/22 07:00 Intake Total 2520 ml Output Total 700 ml Balance 1820 ml Capillary Refill : Less Than 3 Seconds General Appearance: No Apparent Distress Neck: Tender Midline (Patient said tenderness is from EGD yesterday) Respiratory: Lungs Clear, Normal Breath Sounds, No Accessory Muscle Use, No Respiratory Distress Cardiovascular: Regular Rate, Rhythm, No Murmur, Normal Peripheral Pulses Peripheral Pulses: 2+ Radial Pulses (R), 2+ Radial Pulses (L) Gastrointestinal: normal bowel sounds, soft Neurologic/Psychiatric: Alert, Oriented x3 Results Lab Laboratory Tests 05/08/22 11:17: Glucometer 186H 05/08/22 16:08: Glucometer 218H 05/08/22 20:28: Glucometer 244H 05/09/22 05:28: White Blood Count 6.7, Red Blood Count 4.43, Hemoglobin 7.6L, Hematocrit 28L, Mean Corpuscular Volume 63L, Mean Corpuscular Hemoglobin 17L, Mean Corpuscular Hemoglobin Concent 27L, Red Cell Distribution Width 23.9H, Platelet Count 380, Mean Platelet Volume 10.0, Immature Granulocyte % (Auto) 2, Neutrophils (%) (Auto) 59, Lymphocytes (%) (Auto) 23, Monocytes (%) (Auto) 9, Eosinophils (%) (Auto) 6, Basophils (%) (Auto) 1, Neutrophils # (Auto) 3.9, Lymphocytes # (Auto) 1.6, Monocytes # (Auto) 0.6, Eosinophils # (Auto) 0.4H, Basophils # (Auto) 0.1, Immature Granulocyte # (Auto) 0.1, Percent Immature Platelet Fraction 3.2, Sodium Level 139, Potassium Level 4.0, Chloride Level 104, Carbon Dioxide Level 23, Anion Gap 12, Blood Urea Nitrogen 8, Creatinine 0.96, Estimat Glomerular Filtration Rate 82, BUN/Creatinine Ratio 8, Glucose Level 176H, Calcium Level 8.9, Corrected Calcium 9.4, Total Bilirubin 0.7, Aspartate Amino Transf (AST/SGOT) 28, Alanine Aminotransferase (ALT/SGPT) 17, Alkaline Phosphatase 58, Total Protein 6.6, Albumin 3.4 Microbiology 05/07/22 MRSA Screen - Final, Complete MRSA not isolated Assessment/Plan Assessment/Plan Assessment/Plan anemia abdominal pain lower abdomen and epigastric area Patient hemoglobin is stable at 7.6 from 7.9 yesterday. Advance diet today. Patient will follow up outpatient with Dr. Meyer for colonoscopy. Clinical Quality Measures DVT/VTE Prophylaxis Comfirm.Dx Pharmacological not ordered: Aneurysm, Active bleeding (Possible active bleed of unknown origin), Risk of Bleeding ALFRED MARTINEZ DO 05/09/22 1131: Subjective Time Seen by a Provider: 10:29 Subjective/Events-last exam Pt seen and examined, states he feels fine today and is wondering if he can go home. Review of Systems General: No Chills, No Night Sweats Pulmonary: No Dyspnea, No Cough Gastrointestinal: Nausea, Abdominal Pain; No: Vomiting Objective Exam General Appearance: No Apparent Distress Respiratory: Lungs Clear, Normal Breath Sounds, No Accessory Muscle Use, No Respiratory Distress Cardiovascular: Regular Rate, Rhythm, No Murmur Gastrointestinal: normal bowel sounds, non tender, soft, distended Assessment/Plan Assessment/Plan Assessment/Plan Erosive Gastritis Anemia Abdominal pain lower abdomen and epigastric area Patient hemoglobin is stable at 7.6 from 7.9 yesterday. Advance diet today. Patient will follow up outpatient with Dr. Meyer for colonoscopy. Supervisory-Addendum Brief Verification & Attestation Participated in pt care: history, MDM, physical Personally performed: exam, history, MDM, supervision of care Care discussed with: Medical Student Procedures: n/a Verification and Attestation of Medical Student E/M Service A medical student performed and documented this service. I then reviewed and verified all information documented by the medical student and made modifications to such information, when appropriate. I personally performed a physical exam, medical decision making and then discussed any differences between the notes and made revisions as necessary to create one note. Alfred Martinez , 05/09/22 , 11:35 KEVEN BRITTON May 09, 2022 10:03 ALFRED MARTINEZ DO May 09, 2022 11:31
[2022-05-09 11:13] VITALS: BP 149/74
[2022-05-09] MEDS ORDERED: PANT40TA2 PO (11:37)
[2022-05-09] MEDS ORDERED: SUCR1TAB PO (11:37)
--- NOTE | 2022-05-09 11:39 | Discharge Summary ---
Discharge Summary Hospital Course Was the Problem List Reviewed?: Yes Hospital Course Date of Admission: May 07, 2022 at 13:04 Admission Diagnosis : Family Physician/Provider: Sandip Ortega MD Date of Discharge: 05/09/22 Discharge Diagnosis: [ ] Hospital Course: standard course after admitted for severe anemia and Plavix and ASA and OAC hold. No EGD done until after DC. 2 units of blood received. Patient felt improved at DC. Labs and Pending Lab Test: Laboratory Tests 05/08/22 16:08: Glucometer 218H 05/08/22 20:28: Glucometer 244H 05/09/22 05:28: White Blood Count 6.7, Red Blood Count 4.43, Hemoglobin 7.6L, Hematocrit 28L, Mean Corpuscular Volume 63L, Mean Corpuscular Hemoglobin 17L, Mean Corpuscular Hemoglobin Concent 27L, Red Cell Distribution Width 23.9H, Platelet Count 380, Mean Platelet Volume 10.0, Immature Granulocyte % (Auto) 2, Neutrophils (%) (Auto) 59, Lymphocytes (%) (Auto) 23, Monocytes (%) (Auto) 9, Eosinophils (%) (Auto) 6, Basophils (%) (Auto) 1, Neutrophils # (Auto) 3.9, Lymphocytes # (Auto) 1.6, Monocytes # (Auto) 0.6, Eosinophils # (Auto) 0.4H, Basophils # (Auto) 0.1, Immature Granulocyte # (Auto) 0.1, Percent Immature Platelet Fraction 3.2, Sodium Level 139, Potassium Level 4.0, Chloride Level 104, Carbon Dioxide Level 23, Anion Gap 12, Blood Urea Nitrogen 8, Creatinine 0.96, Estimat Glomerular Filtration Rate 82, BUN/Creatinine Ratio 8, Glucose Level 176H, Calcium Level 8.9, Corrected Calcium 9.4, Total Bilirubin 0.7, Aspartate Amino Transf (AST/SGOT) 28, Alanine Aminotransferase (ALT/SGPT) 17, Alkaline Phosphatase 58, Total Protein 6.6, Albumin 3.4 Microbiology 05/07/22 MRSA Screen - Final, Complete MRSA not isolated Home Meds Active Protonix (Pantoprazole Sodium) 40 Mg Tablet.dr 40 Mg PO BID Sucralfate 1 Gram Tablet 1 Gm PO ACHS Reported Aspirin EC (Aspirin) 81 Mg Tablet.dr 81 Mg PO DAILY Furosemide 40 Mg Tablet 40 Mg PO DAILY Advair 250-50 Diskus (Fluticasone/Salmeterol) 250 Mcg-50 Mcg/Dose Blst.w.dev 1 Each IH BID Diltiazem ER (Diltiazem HCl) 120 Mg Capsule.er 120 Mg PO DAILY Spironolactone 25 Mg Tablet 25 Mg PO DAILY Multaq (Dronedarone HCl) 400 Mg Tablet 400 Mg PO BID Fluticasone Propionate 50 Mcg/Actuation [place].susp 2 Sprays NSEACH DAILY PRN Basaglar Kwikpen U-100 (Insulin Glargine,Hum.rec.anlog) 100 Unit/Ml (3 Ml) Insuln.pen 65 Unit SQ BID Novolog Flexpen (Insulin Aspart) 100 Unit/Ml (3 Ml) Solution 28 Units SQ AC Proair Hfa (Albuterol Sulfate) 1 Puff Puff 2 Puff IH Q4H PRN Eliquis (Apixaban) 5 Mg Tablet 5 Mg PO BID Metoprolol Succinate 50 Mg Tab.er.24h 50 Mg PO DAILY Rosuvastatin Calcium 40 Mg Tablet 40 Mg PO DAILY Clopidogrel (Clopidogrel Bisulfate) 75 Mg Tablet 75 Mg PO DAILY Montelukast Sodium 10 Mg Tablet 10 Mg PO HS Fenofibrate (Fenofibrate Nanocrystallized) 145 Mg Tablet 145 Mg PO DAILY Pregabalin 100 Mg Capsule 100 Mg PO 0000,0600,1800 Omeprazole 20 Mg Capsule.dr 20 Mg PO DAILY Assessment/Pt Instructions PCP 1 week Discharge Planning: <30 minutes discharge planning Discharge Instructions Discharge Diet: No Restrictions Activity as Tolerated: Yes Discharge Physical Examination Vital Signs Vital Signs Date Time Temp Pulse Resp B/P (MAP) Pulse Ox O2 Delivery O2 Flow Rate FiO2 05/09/22 11:13 36.0 76 20 149/74 (99) 96 Room Air 05/09/22 09:17 2.00 05/06/22 20:20 28 General Appearance: No Apparent Distress, WD/WN, Chronically ill Allergies: Coded Allergies: lisinopril (Verified Allergy, Mild, 01/15/21) MUSCLE ACHES losartan (Verified Allergy, Mild, Rash, 01/15/21) lovastatin (Verified Allergy, Mild, 01/15/21) MUSCLE ACHES rosiglitazone (Verified Allergy, Mild, Hives, 01/15/21) umeclidinium (Verified Allergy, Mild, Rash, 01/15/21) Discharge Summary Date of Admission May 07, 2022 at 13:04 Date of Discharge Discharge Date: May 09, 2022 Comfort Measures/ Advance Care discuss with: patient (Patient wishes to be changed from DNR status to full code) Discharge Diagnosis GIB monitoring Clinical Quality Measures DVT/VTE Prophylaxis Comfirm.Dx Pharmacological not ordered: Aneurysm, Active bleeding (Possible active bleed of unknown origin), Risk of Bleeding ANTHONY BRANCH DO May 09, 2022 11:39
--- NOTE | 2022-05-09 12:17 | Progress Note - Cardiology ---
Cardiology SOAP Progress Note Subjective: No cp or palp or syncope or shortness of breath No n/v/d No focal weakness States feels great and wants to go home Objective: I&O/Vital Signs 05/09/22 05/09/22 05/09/22 05/09/22 01:00 02:27 03:40 07:00 Temp 35.4 35.5 Pulse 67 73 64 65 Resp 18 B/P (MAP) 112/64 (80) Pulse Ox 94 98 O2 Delivery Room Air 05/09/22 05/09/22 05/09/22 07:28 09:17 11:13 Temp 36.2 36.0 Pulse 75 76 Resp 20 20 B/P (MAP) 154/76 (102) 149/74 (99) Pulse Ox 95 96 O2 Delivery Room Air Nasal Cannula Room Air O2 Flow Rate 2.00 05/08/22 23:59 Intake Total 1880 ml Output Total 700 ml Balance 1180 ml Constitutional: AAO x 3, well-developed, well-nourished, other (obes) Respiratory: No accessory muscle use; other (good, bilateral air entry) Cardiovascular: regular rate-rhythm, S1 and S2, systolic murmur (soft LOUANN at card base) Gastrointestional: No tender; soft; No guarding, No rebound; audible bowel sounds Extremities: No clubbing, No cyanosis, No significant edema Neurologic/Psychiatric: oriented x 3, other (moves all limbs equally) Skin: No rash on exposed areas, No ulcerations on exposed areas Results/Procedures: Labs Laboratory Tests 05/08/22 16:08: Glucometer 218H 05/08/22 20:28: Glucometer 244H 05/09/22 05:28: White Blood Count 6.7, Red Blood Count 4.43, Hemoglobin 7.6L, Hematocrit 28L, Mean Corpuscular Volume 63L, Mean Corpuscular Hemoglobin 17L, Mean Corpuscular Hemoglobin Concent 27L, Red Cell Distribution Width 23.9H, Platelet Count 380, Mean Platelet Volume 10.0, Immature Granulocyte % (Auto) 2, Neutrophils (%) (Auto) 59, Lymphocytes (%) (Auto) 23, Monocytes (%) (Auto) 9, Eosinophils (%) (Auto) 6, Basophils (%) (Auto) 1, Neutrophils # (Auto) 3.9, Lymphocytes # (Auto) 1.6, Monocytes # (Auto) 0.6, Eosinophils # (Auto) 0.4H, Basophils # (Auto) 0.1, Immature Granulocyte # (Auto) 0.1, Percent Immature Platelet Fraction 3.2, Sodium Level 139, Potassium Level 4.0, Chloride Level 104, Carbon Dioxide Level 23, Anion Gap 12, Blood Urea Nitrogen 8, Creatinine 0.96, Estimat Glomerular Filtration Rate 82, BUN/Creatinine Ratio 8, Glucose Level 176H, Calcium Level 8.9, Corrected Calcium 9.4, Total Bilirubin 0.7, Aspartate Amino Transf (AST/SGOT) 28, Alanine Aminotransferase (ALT/SGPT) 17, Alkaline Phosphatase 58, Total Protein 6.6, Albumin 3.4 Microbiology 05/07/22 MRSA Screen - Final, Complete MRSA not isolated Laboratory Tests 05/07/22 15:01 05/08/22 01:05 05/08/22 05:42 05/09/22 05:28 A/P: Assessment: Chest/epigastric discomfort of undetermined etiology Severe anemia due to GI bleed - received blood transfusions during the hospitalization; hgb still low at 7.6 - 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 Cornejo at [facility] - Maintained on Eliquis, Cardizem CD, Multaq. 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 Urena in December 2020. Hypertension Hyperlipidemia Diabetes mellitus II COPD/IVONNE, was intolerant to C Pap machine Obesity, BMI approx 38 - wgt loss advised Tobaccoism, stopped smoking 2 years ago - advised to continue with smoking cessation. Plan: * Complex management due to multiple CV comorbidities * Insists on going home. Dr Reynolds had already written his discharge by the time I saw him * I advised very close cardiac and medical f/u as an outpt * Advised f/u with Dr Esparza this coming week ARLEN LIZARRAGA MD FACP FAC CCDS May 09, 2022 12:17
[2022-05-09 15:08] VITALS: BP 149/74
== END 2022-05-09 12:30 | disposition home or self-care (01) | DRG 811 ==
LOC: EDUNIT# 11:18 → ER FS 11:22 → 4TH 17:42 → OBSVTOIN 05-07 13:04
PROVIDERS: ADMIT Family Medicine; ATTEND Internal Medicine
PROC: 0DB48ZX Excision of Esophagogastric Junction, Via Natural or Artificial Opening Endoscopic, Diagnostic (ICD-10-PCS; 2022-05-08)
PROC: 0DB78ZX Excision of Stomach, Pylorus, Via Natural or Artificial Opening Endoscopic, Diagnostic (ICD-10-PCS; principal; 2022-05-08 14:44)
DX: D50.0 Iron deficiency anemia secondary to blood loss (chronic) (principal); K22.11 Ulcer of esophagus with bleeding; I25.110 Atherosclerotic heart disease of native coronary artery with unstable angina pectoris; K29.70 Gastritis, unspecified, without bleeding; K14.0 Glossitis; I11.0 Hypertensive heart disease with heart failure; I50.9 Heart failure, unspecified; I48.0 Paroxysmal atrial fibrillation; E78.00 Pure hypercholesterolemia, unspecified; E11.9 Type 2 diabetes mellitus without complications; J43.9 Emphysema, unspecified; G47.33 Obstructive sleep apnea (adult) (pediatric); K21.9 Gastro-esophageal reflux disease without esophagitis; K44.9 Diaphragmatic hernia without obstruction or gangrene; Z87.891 Personal history of nicotine dependence; Z86.73 Personal history of transient ischemic attack (TIA), and cerebral infarction without residual deficits; Z79.01 Long term (current) use of anticoagulants; Z79.82 Long term (current) use of aspirin; Z79.4 Long term (current) use of insulin; Z79.52 Long term (current) use of systemic steroids; Z95.5 Presence of coronary angioplasty implant and graft; Z95.820 Peripheral vascular angioplasty status with implants and grafts
CPT/HCPCS: 36415; 36430; 70491; 74174; 80053; 80061; 81000; 82274; 82947; 85014; 85018; 85025; 86850; 86900; 86901; 86920; 87081; 93005; G0378; Q9967

== ENCOUNTER → 2022-05-21 | Outpatient (CLI) | payer MEDICARE ==
[~2022-05-21] MED LIST changes: +ASPI-1238 PO; +DILT120C85 PO; +PANT40TA2 PO; +SUCR1TAB PO
== END ==
LOC: CARDFS 12:53
PROVIDERS: ATTEND Internal Medicine Cardiovascular Disease
DX: I35.1 Nonrheumatic aortic (valve) insufficiency (principal); I10 Essential (primary) hypertension
CPT/HCPCS: 93306

== ENCOUNTER 2022-06-17 06:26 | Outpatient (CLI) | payer MEDICARE ==
[~2022-06-17] VITALS: Ht 188 cm; Wt 135.2 kg
[2022-06-17] MEDS ORDERED: TIRZ2.5P SQ (09:03)
[2022-06-17] MEDS ORDERED: CALC625T PO (09:03)
[2022-06-17] MEDS ORDERED: FAMO20TA3 PO (09:03)
== END 2022-06-17 09:05 | disposition home or self-care (01) ==
LOC: PREOP 06:26
PROVIDERS: ATTEND Surgery
DX: Z01.818 Encounter for other preprocedural examination (principal)

== ENCOUNTER 2022-06-26 11:00 | Day surgery (SDC) | payer MEDICARE, MEDICAID ==
[~2022-06-26] VITALS: Ht 188 cm; Wt 135.2 kg
[~2022-06-26 11:00] MED LIST changes: +CALC625T PO; +FAMO20TA3 PO; +TIRZ2.5P SQ
[2022-06-26] MEDS ORDERED: LACTATED RINGERS 1,000 ML IV ONE (11:09)
[2022-06-26] MEDS ORDERED: LACTATED RINGERS 1,000 ML IV STA (11:16)
[2022-06-26 11:30] VITALS: BP 134/72
[2022-06-26] MEDS ORDERED: PROPOFOL INJECTION 50 ML IV ONE (12:18)
--- NOTE | 2022-06-26 12:53 | Progress Note-Pre Operative ---
Pre-Operative Progress Note Date of Available H&P: Jun 26, 2022 Date H&P Reviewed: Jun 26, 2022 Time H&P Reviewed: 12:00 History & Physical: H&P Reviewed, Patient Examed Pre-Operative Diagnosis: MelBECKIE Marcelino DO Jun 26, 2022 12:53
--- NOTE | 2022-06-26 12:54 | Progress Note-Post Operative ---
Post-Operative Progess Note Surgeon (s)/High Reach Operator (s) Surgeon BECKIE CARRION DO High Reach Operator: NA Pre-Operative Diagnosis Melena Post-Operative Diagnosis Colon polyps Procedure & Operative Findings Date of Procedure 06/26/22 Procedure Performed/Findings Colonoscopy with hot biopsy polypectomy x3 Anesthesia Type per flash oven operator Estimated Blood Loss Estimated blood loss (mL): None Specimens/Packing Specimens Removed Ascending colon polyp x1 Transverse colon polyp x2 BECKIE CARRION DO Jun 26, 2022 12:54
--- NOTE | 2022-06-26 12:55 | Discharge Inst-Simple/Standard ---
Discharge Inst-Standard Reconcile Patient Problems Problems Reviewed?: Yes Patient Instructions/Follow Up Plan of Care/Instructions/FU: F/u with Dr. Meyer in 2 weeks Activity as Tolerated: Yes Discharge Diet: Regular Diet BECKIE MEYER DO Jun 26, 2022 12:55
[2022-06-26 13:00] VITALS: BP 130/67
[2022-06-26 13:05] VITALS: BP 132/60
[2022-06-26 13:30] VITALS: BP 129/65
--- NOTE | 2022-06-26 14:43 | Anesthesia-General Post-Op ---
MAC Patient Condition Mental Status/LOC: Same as Preop Cardiovascular: Satisfactory Nausea/Vomiting: Absent Respiratory: Satisfactory Pain: Controlled Complications: Absent Post Op Complications Complications None Follow Up Care/Instructions Patient Instructions None needed. Anesthesiology Discharge Order Discharge Order Patient is doing well, no complaints, stable vital signs, no apparent adverse anesthesia problems. No complications reported per nursing. NAM RENNER CRNA Jun 26, 2022 14:43
--- NOTE | 2022-06-26 20:19 | OPERATIVE REPORT ---
DATE OF SERVICE: 06/26/2022 PREOPERATIVE DIAGNOSIS: Melena. POSTOPERATIVE DIAGNOSIS: Colon polyps. PROCEDURE: Colonoscopy with hot biopsy polypectomy x3. SURGEON: Beckie Meyer DO ANESTHESIA: Per BARIATRIC COORDINATOR. ESTIMATED BLOOD LOSS: None. COMPLICATIONS: None. INDICATIONS: The patient is a 77-year-old male with melena. He understands risks and benefits of procedure and wishes to proceed. Consent was signed in the chart. DESCRIPTION OF PROCEDURE: The patient was taken to the endoscopy suite, placed in left lateral recumbent position. Timeout was performed. Digital rectal exam was performed. No palpable polyps, masses or ulcerations. Scope was inserted in the rectum and advanced all the way to cecum with minimal difficulty. Prep was adequate. Scope was then slowly retracted back. No polyps, masses or ulcerations in the cecum. In the ascending, there was a small polyp, which hot biopsy polypectomy was performed. Scope was continuously retracted back. No polyps, masses or ulcerations in remainder of the ascending colon; in transverse colon, 2 polyps were present, which hot biopsy polypectomy was performed. Scope was continuously retracted back. No polyps, masses or ulcerations within the descending and sigmoid colon. Once in the rectum, scope was retroflexed noting no other pathology. Scope was returned to its normal position, slowly withdrawn until completely removed. The patient tolerated procedure well without any complications, taken to recovery room in stable condition. RECOMMENDATIONS: The patient will need followup on pathology. Due to age, he does not need any further colonoscopies unless he is symptomatic and needs reevaluation. The patient will follow up in our office in 2 weeks. Job ID: [id number] DocumentID: [id number] Dictated Date: 06/26/2022 12:54:00 Production Trainer Date: 06/26/2022 20:19:01 Dictated By: BECKIE MEYER DO
== END 2022-06-26 13:30 | disposition home or self-care (01) ==
LOC: ENDO 11:00
PROVIDERS: ATTEND Surgery
DX: D12.2 Benign neoplasm of ascending colon (principal); D12.3 Benign neoplasm of transverse colon; Z79.01 Long term (current) use of anticoagulants; E66.9 Obesity, unspecified; Z68.38 Body mass index [BMI] 38.0-38.9, adult; Z87.891 Personal history of nicotine dependence

== ENCOUNTER 2022-11-21 02:54 | Emergency (ER) | payer MEDICARE, MEDICAID ==
[~2022-11-21] VITALS: Ht 187.9 cm; Wt 136.0 kg
[~2022-11-21 02:54] MED LIST changes: +ALBU8.5H6 IH; -RT-ALBUINH IH
[2022-11-21] MEDS ORDERED: RT-ALBUTEROL/IPRATROPIUM 3 ML (DUONEB) VIAL IH ONE (03:15)
[2022-11-21] MEDS ORDERED: DOXYCYCLINE 100 MG (VIBRAMYCIN) TABLET PO ONE (03:15)
[2022-11-21] MEDS ORDERED: cefTRIAXone 1 GM PRE-MIX 50 ML IV ONE (03:15)
[2022-11-21] MEDS ORDERED: predniSONE 20 MG TAB PO ONE (03:15)
--- NOTE | 2022-11-21 03:25 | ED Respiratory ---
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 Went to the urgent care earlier today and was told it likely was something viral and was discharged. He states he has some chest tightness associated with it. Slightly better with breathing treatments that he is taking at home. He has brought his oxygen up to 3 L which has helped somewhat. He is otherwise denying any other acute complaints. Allergies and Home Medications Allergies Coded Allergies: lisinopril (Verified Allergy, Mild, 01/15/21) MUSCLE ACHES losartan (Verified Allergy, Mild, Rash, 01/15/21) lovastatin (Verified Allergy, Mild, 01/15/21) MUSCLE ACHES rosiglitazone (Verified Allergy, Mild, Hives, 01/15/21) umeclidinium (Verified Allergy, Mild, Rash, 01/15/21) Patient Home Medication List Home Medication List Reviewed: Yes Albuterol Sulfate (Ventolin Hfa) 1 Puff Puff, 2 PUFF IH Q4H PRN for SHORTNESS OF BREATH, (Reported) Entered as Reported by: DVAID SADLER on 01/15/21 1043 Calcium Polycarbophil (Fibercon) 625 Mg Tablet, 625 MG PO DAILY, (Reported) Entered as Reported by: KASHIF JERRY on 06/17/22 0903 Diltiazem HCl (Diltiazem ER) 120 Mg Capsule.er, 120 MG PO DAILY, (Reported) Entered as Reported by: CHARLIE GIRON on 05/07/22 1048 Dronedarone HCl (Multaq) 400 Mg Tablet, 400 MG PO BID, (Reported) Entered as Reported by: CHARLIE GIRON on 06/06/21 1124 Famotidine (Acid [employer] (FAMOTIDINE)) 20 Mg Tablet, 20 MG PO BID, (Reported) Entered as Reported by: KASHIF JERRY on 06/17/22 0903 Fenofibrate Nanocrystallized (Fenofibrate) 145 Mg Tablet, 145 MG PO DAILY, (Reported) Entered as Reported by: DAVID SADLER on 01/15/21 1043 Fluticasone Propionate (Fluticasone Propionate) 50 Mcg/Actuation [place].susp, 2 SPRAYS NSEACH DAILY PRN for CONGESTION, (Reported) Entered as Reported by: CHARLIE GIRON on 06/06/21 1124 Fluticasone/Salmeterol (Advair 250-50 Diskus) 250 Mcg-50 Mcg/Dose Blst.w.dev, 1 EACH IH BID, (Reported) Entered as Reported by: CHARLIE GIRON on 05/07/22 1048 Insulin Aspart (Novolog Flexpen) 100 Unit/Ml (3 Ml) Solution, 28 UNITS SQ AC, (Reported) Entered as Reported by: DAVID SADLER on 01/15/21 1043 Insulin Glargine,Hum.rec.anlog (Basaglar Kwikpen U-100) 100 Unit/Ml (3 Ml) Insuln.pen, 65 UNIT SQ BID, (Reported) Entered as Reported by: DAVID SADLER on 01/15/21 1043 Metoprolol Succinate (Metoprolol Succinate) 50 Mg Tab.er.24h, 50 MG PO DAILY, (Reported) Entered as Reported by: DAVID SADLER on 01/15/21 1043 Montelukast Sodium (Montelukast Sodium) 10 Mg Tablet, 10 MG PO HS, (Reported) Entered as Reported by: DAVID SADLER on 01/15/21 1043 Pantoprazole Sodium (Protonix) 40 Mg Tablet.dr, 40 MG PO BID Prescribed by: ANTHONY BRANCH on 05/09/22 1137 Pregabalin (Pregabalin) 100 Mg Capsule, 100 MG PO 0000,0600,1800, (Reported) Entered as Reported by: DAVID SADLER on 01/15/21 1043 Rosuvastatin Calcium (Rosuvastatin Calcium) 40 Mg Tablet, 40 MG PO DAILY, (Reported) Entered as Reported by: DAVID SADLER on 01/15/21 1043 Sucralfate (Sucralfate) 1 Gram Tablet, 1 GM PO ACHS Prescribed by: ANTHONY BRANCH on 05/09/22 1137 Tirzepatide (Mounjaro) 2.5 Mg/0.5 Ml Pen.injctr, 2.5 MG SQ WEEK, (Reported) Entered as Reported by: KASHIF Workman [facility] on 06/17/22 0903 Review of Systems Review of Systems Constitutional: No fever EENTM: no symptoms reported Respiratory: see HPI Cardiovascular: see HPI Gastrointestinal: no symptoms reported Musculoskeletal: no symptoms reported Skin: no symptoms reported Psychiatric/Neurological: No Symptoms Reported Hematologic/Lymphatic: No Symptoms Reported Past Enxloqr-[id number]-Xjfpwr Hx Patient Social History Tobacco Use?: No Tobacco type used: Cigarettes Smoking Status: Former Smoker Immunizations Up To Date First/Initial COVID19 Vaccinat: DECEMBER 2020 Second COVID19 Vaccination Moi: JANUARY 2021 Third COVID19 Vaccination Date: DECEMBER 2020 Seasonal Allergies Seasonal Allergies: No Past Medical History Surgery/Hospitalization HX: aneurysm repair; multiple (aortic/iliac), Appendectomy, pilonidal cyst, tailbone, HTN, chronic A Fib, hyperlipidemia, IDDM/Type II, COPD, IVONNE (no CPAP tolerance), skin cancer Surgeries: Yes Appendectomy, Cardiac Respiratory: Yes Emphysema Cardiac: Yes Atrial Fibrillation, Coronary Artery Disease, High Cholesterol, Hypertension Neurological: Yes TIA Genitourinary: No Gastrointestinal: Yes Gastroesophageal Reflux Musculoskeletal: No Endocrine: Yes HEENT: No Cancer: Yes Skin Did You Recieve Any Treatments: Yes What Type of Treatment Did You: Surgical Intervention Psychosocial: No Integumentary: No Blood Disorders: No Family Medical History No Pertinent Family Hx Physical Exam Vital Signs - First Documented 11/21/22 03:00 Pulse 83 Resp 22 B/P (MAP) 125/54 (77) Pulse Ox 95 O2 Delivery Nasal Cannula O2 Flow Rate 3.00 Capillary Refill : Height: '" Weight: lbs. oz. kg; 38.25 BMI Method: General Appearance: WD/WN, other (Chronically ill-appearing) Eyes: Bilateral Eye Normal Inspection HEENT: PERRL/EOMI, normal ENT inspection, pharynx normal Neck: non-tender, full range of motion, supple, normal inspection Respiratory: chest non-tender, no respiratory distress, no accessory muscle use, wheezing Cardiovascular: regular rate, rhythm, no edema, no murmur Gastrointestinal: normal bowel sounds, non tender, soft; No distended, No guarding Extremities: normal range of motion, non-tender, normal inspection, no pedal edema, no calf tenderness, normal capillary refill Neurologic/Psychiatric: no motor/sensory deficits, alert, normal mood/affect Skin: normal color, warm/dry Progress/Results/Core Measures Suspected Sepsis SIRS Temperature: Pulse: Respiratory Rate: Laboratory Tests 11/21/22 03:15: White Blood Count 13.2H Blood Pressure / Mean: Laboratory Tests 11/21/22 03:15: Creatinine 1.00, INR Comment 1.0, Platelet Count 215, Total Bilirubin 0.5 Results/Orders Lab Results Laboratory Tests Test 11/21/22 03:15 Range/Units White Blood Count 13.2 H 4.3-11.0 10^3/uL Red Blood Count 5.14 4.30-5.52 10^6/uL Hemoglobin 12.1 L 13.3-17.7 g/dL Hematocrit 39 L 40-54 % Mean Corpuscular Volume 76 L 80-99 fL Mean Corpuscular Hemoglobin 24 L 25-34 pg Mean Corpuscular Hemoglobin Concent 31 L 32-36 g/dL Red Cell Distribution Width 27.4 H 10.0-14.5 % Platelet Count 215 130-400 10^3/uL Mean Platelet Volume 10.3 9.0-12.2 fL Immature Granulocyte % (Auto) 0 % Neutrophils (%) (Auto) 82 H 42-75 % Lymphocytes (%) (Auto) 10 L 12-44 % Monocytes (%) (Auto) 7 0-12 % Eosinophils (%) (Auto) 1 0-10 % Basophils (%) (Auto) 0 0-10 % Neutrophils # (Auto) 10.8 H 1.8-7.8 10^3/uL Lymphocytes # (Auto) 1.3 1.0-4.0 10^3/uL Monocytes # (Auto) 1.0 0.0-1.0 10^3/uL Eosinophils # (Auto) 0.1 0.0-0.3 10^3/uL Basophils # (Auto) 0.0 0.0-0.1 10^3/uL Immature Granulocyte # (Auto) 0.1 0.0-0.1 10^3/uL Prothrombin Time 14.1 12.2-14.7 SEC INR Comment 1.0 0.8-1.4 Activated Partial Thromboplast Time 35 24-35 SEC Sodium Level 134 L 135-145 MMOL/L Potassium Level 3.9 3.6-5.0 MMOL/L Chloride Level 100 98-107 MMOL/L Carbon Dioxide Level 23 21-32 MMOL/L Anion Gap 11 5-14 MMOL/L Blood Urea Nitrogen 14 7-18 MG/DL Creatinine 1.00 0.60-1.30 MG/DL Estimat Glomerular Filtration Rate 78 BUN/Creatinine Ratio 14 Glucose Level 210 H 70-105 MG/DL Calcium Level 8.6 8.5-10.1 MG/DL Corrected Calcium 8.9 8.5-10.1 MG/DL Magnesium Level 1.9 1.6-2.4 MG/DL Total Bilirubin 0.5 0.1-1.0 MG/DL Aspartate Amino Transf (AST/SGOT) 28 5-34 U/L Alanine Aminotransferase (ALT/SGPT) 23 0-55 U/L Alkaline Phosphatase 64 40-136 U/L Troponin I < 0.30 <0.30 NG/ML Total Protein 7.2 6.4-8.2 GM/DL Albumin 3.6 3.2-4.5 GM/DL Lipase 20 8-78 U/L My Orders Orders - LEAH VILLEGAS MD Cbc With Automated Diff (11/21/22 03:13) Magnesium (11/21/22 03:13) Chest 1 View Ap/Pa Only (11/21/22 03:13) Ekg Tracing (11/21/22 03:13) Comprehensive Metabolic Panel (11/21/22 03:13) Protime With Inr (11/21/22 03:13) Partial Thromboplastin Time (11/21/22 03:13) O2 (11/21/22 03:13) Monitor-Rhythm Ecg Trace Only (11/21/22 03:13) Ed Iv/Invasive Line Start (11/21/22 03:13) Lipase (11/21/22 03:13) Troponin I Fs (11/21/22 03:13) Probnp Fs (11/21/22 03:13) Prednisone Tablet (Deltasone Tablet) (11/21/22 03:15) Albuterol/Ipra Inhalation Soln (Duoneb I (11/21/22 03:15) Ceftriaxone 1 Gm Pre-Mix (Rocephin 1 Gm (11/21/22 03:15) Doxycycline Hyclate Tablet (Vibramycin T (11/21/22 03:15) Medications Given in ED Current Medications Medications Dose Ordered Sig/Justin Route Start Time Stop Time Status Last Admin Dose Admin Albuterol/ Ipratropium 3 ml ONCE ONCE IH 11/21/22 03:15 11/21/22 03:16 DC 11/21/22 03:26 3 ML Ceftriaxone Sodium/Dextrose 50 ml @ 100 mls/hr ONCE ONCE IV 11/21/22 03:15 11/21/22 03:44 DC 11/21/22 03:26 100 MLS/HR Doxycycline Hyclate 100 mg ONCE ONCE PO 11/21/22 03:15 11/21/22 03:16 DC 11/21/22 03:26 100 MG Prednisone 40 mg ONCE ONCE PO 11/21/22 03:15 11/21/22 03:16 DC 11/21/22 03:26 40 MG Vital Signs/I&O 11/21/22 11/21/22 11/21/22 11/21/22 03:00 03:05 03:15 03:36 Pulse 83 Resp 22 B/P (MAP) 125/54 (77) Pulse Ox 95 95 96 O2 Delivery Nasal Cannula Nasal Cannula Room Air Nasal Cannula O2 Flow Rate 3.00 3.00 3.00 3.00 Capillary Refill : Progress Note : Progress Note 77-year-old male with above history coming in due to productive cough, dyspnea, and chest tightness for the past 3 days. ABCs were intact and vitals were stable on 3 L O2 which she has been wearing at home. Physical exam with bilateral lung field wheezing. He was given a DuoNeb treatments given his history of COPD. Given his increasing productive cough, treated like a COPD exacerbation with steroids as well as IV and oral antibiotics. EKG ordered and interpreted by me showing no acute ischemic changes. Chest x-ray with no lobar infiltrate, poor penetration based on his size makes it difficult to interpret. Labs significant for an elevated white blood cell count, normal creatinine, negative troponin. Clinically symptoms consistent with a COPD exacerbation. We will send a prescription for steroids as well as antibiotics. Given the constant discomfort, with a negative troponin, very unlikely to be ACS. Patient is on Eliquis and not missing any doses, no clinical signs of DVT, very unlikely to be a PE. He was discharged home in stable condition with strict return precautions. ECG Initial ECG Impression Date: Nov 21, 2022 Initial ECG Impression Time: 03:14 Initial ECG Rate: 83 Initial ECG Rhythm: Normal Sinus Comment Narrow QRS, normal axis, no significant ST changes or T wave abnormalities Diagnostic Imaging Diagonstic Imaging: Xray (chest) Comments Single view of the chest ordered and interpreted by me showing no large focal infiltrate, no pneumothorax, accounting for different angulation, does appear similar to prior Departure Impression Primary Impression: COPD exacerbation Disposition: 01 HOME, SELF-CARE Condition: Stable Departure-Patient Inst. Decision time for Depature: 03:59 Referrals: TRACEE MORENO MD (PCP/Family) Primary Care Physician Patient Instructions: COPD Exacerbation, Adult ED Add. Discharge Instructions: We are concerned you having a COPD exacerbation. You will be on some steroids as well as antibiotics for the next several days. Please follow-up with your regular doctor if you are not feeling some improvement by Wednesday. Scripts Methylprednisolone (Methylprednisolone Dose Pack) 4 Mg Tab.ds.pk 4 MG PO UD for 6 Days, #21 PKG PER DOSE PACK INSTRUCTIONS Prov: LEAH VILLEGAS MD 11/21/22 Doxycycline Hyclate (Doxycycline Hyclate) 100 Mg Tablet 100 MG PO BID for 7 Days, #14 TAB 0 Refills Prov: LEAH VILLEGAS MD 11/21/22 Work/School Note: Work Release Form Date Seen in the Emergency Department: Nov 21, 2022 Return to Work: Nov 22, 2022 Restrictions: No Restrictions LEAH VILLEGAS MD Nov 21, 2022 03:25
[2022-11-21 03:34] LABS: BASOPHILS % (AUTO) 0 % (0-10); EOSINOPHILS # (AUTO) 0.1 10^3/uL (0.0-0.3); EOSINOPHILS % (AUTO) 1 % (0-10); HEMATOCRIT 39 % (40-54); HEMOGLOBIN 12.1 g/dL (13.3-17.7); LYMPHOCYTES # (AUTO) 1.3 10^3/uL (1.0-4.0); LYMPHOCYTES % (AUTO) 10 % (12-44); MEAN CORPUSCULAR HEMOGLOBIN 24 pg (25-34); MEAN CORPUSCULAR HGB CONC 31 g/dL (32-36); MEAN CORPUSCULAR VOLUME 76 fL (80-99); MEAN PLATELET VOLUME 10.3 fL (9.0-12.2); MONOCYTES % (AUTO) 7 % (0-12); NEUTROPHILS # (AUTO) 10.8 10^3/uL (1.8-7.8); NEUTROPHILS % (AUTO) 82 % (42-75); PLATELET COUNT 215 10^3/uL (130-400); WHITE BLOOD COUNT 13.2 10^3/uL (4.3-11.0)
[2022-11-21 03:40] LABS: PROTHROMBIN TIME PATIENT 14.1 SEC (12.2-14.7)
[2022-11-21 03:54] LABS: POTASSIUM 3.9 MMOL/L (3.6-5.0)
[2022-11-21 03:55] LABS: ALBUMIN 3.6 GM/DL (3.2-4.5); BILIRUBIN,TOTAL 0.5 MG/DL (0.1-1.0); CALCIUM 8.6 MG/DL (8.5-10.1); MAGNESIUM 1.9 MG/DL (1.6-2.4); TOTAL PROTEIN 7.2 GM/DL (6.4-8.2)
[2022-11-21] MEDS ORDERED: DOXY100T2 PO (04:00)
[2022-11-21] MEDS ORDERED: METH4TAB10 PO (04:00)
[2022-11-21 04:19] VITALS: BP 129/60
--- NOTE | 2022-11-21 07:08 | Diagnostic Imaging Report ---
HISTORY: Chest pain TECHNIQUE: Frontal view of the chest. COMPARISON: 06/09/2021 FINDINGS: Lung volumes are normal. There is mild airspace opacity in the left lung base. There is no pleural effusion or pneumothorax. The cardiac silhouette is stable in size given the patient rotation to the right. IMPRESSION: 1. Left basilar airspace opacity, may represent atelectasis or infiltrate. Dictated by: Dictated on workstation # [id number]
== END 2022-11-21 04:20 | disposition home or self-care (01) ==
LOC: EDUNIT# 02:54 → ER FS 03:00
DX: J44.1 Chronic obstructive pulmonary disease with (acute) exacerbation (principal); I48.0 Paroxysmal atrial fibrillation; J96.11 Chronic respiratory failure with hypoxia; Z99.81 Dependence on supplemental oxygen; Z95.5 Presence of coronary angioplasty implant and graft; Z79.02 Long term (current) use of antithrombotics/antiplatelets; Z87.891 Personal history of nicotine dependence; Z28.310 Unvaccinated for COVID-19
CPT/HCPCS: 36415; 71045; 80053; 83690; 83735; 83880; 84484; 85025; 85610; 85730; 93005; 93041; 94640